=== PATIENT | female | born 1945 | race Caucasian/White ===

== ENCOUNTER 2020-01-02 12:29 | Outpatient (REF) | payer MEDICARE, SELFPAY ==
--- NOTE | 2020-01-02 13:00 | CT_ITS ---
EXAMINATION: CT CHEST SCREENING CLINICAL INFORMATION: Smoker, screening. COMPARISON: None. TECHNIQUE: Multidetector volumetric CT imaging of the chest is performed without contrast using low dose technique. Additional 2D coronal and sagittal reformatted images and axial 3D maximum intensity projection (MIP) images are generated on the CT workstation. This CT examination was performed using dose optimization techniques as appropriate, variously including the following: *Automated exposure control *Adjustment of mA and/or kV according to patient size (this includes techniques or standardized protocols for targeted exams where dose is matched to indication/reason for exam; i.e. extremities or head) *Use of iterative reconstruction technique DLP: 49 mGy-cm FINDINGS: LUNGS: The lungs are well-expanded with ill-defined irregular patchy opacity lingula measuring 1.3 x 0.7 cm axial image 31/6. There is 3 mm nodule left lower lobe lateral basal segment image 213/6. No additional nodules seen. MEDIASTINUM: The thyroid lobes are symmetrical and normal. The central trachea and the bronchi are widely patent. No abnormal size mediastinal lymph nodes seen. There are coronary artery calcifications. The heart size and the great vessels are normal caliber. No pericardial effusion seen. PLEURA: There is no pleural effusion. No pleural mass or thickening. AXILLA: No lymphadenopathy. UPPER ABDOMEN: Visualized liver, spleen, pancreas and bilateral adrenal glands are unremarkable. OSSEOUS STRUCTURES: No lytic or sclerotic process seen. IMPRESSION: Ill-defined ureteral patchy opacity lingula measuring 1.3 cm. 3 mm nodule left lower lobe lateral basal segment ASSESSMENT: Lung-RADS category 4A: Suspicious RECOMMENDATION: Low dose CT in 3 months
== END 2020-01-02 12:30 | disposition home or self-care (01) ==
LOC: HO.CT 12:29
PROVIDERS: PCP Internal Medicine; Visit Provider Surgery
DX: Z12.2 Encounter for screening for malignant neoplasm of respiratory organs (principal); F17.210 Nicotine dependence, cigarettes, uncomplicated
CPT/HCPCS: 71250

== ENCOUNTER 2020-02-10 12:16 | Outpatient (REF) | payer MEDICARE, SELFPAY ==
--- NOTE | 2020-02-10 | PFT_ITS ---
INDICATION: Dyspnea. SPIROMETRY: The FEV1 to FVC is 97% with an FEV1 of 1.72 L, which is 36% predicted and an FVC of 1.76 L, which is 66% predicted. No significant response to bronchodilators noted. LUNG VOLUMES: Total lung capacity 92% predicted. DIFFUSION CAPACITY: DLCO 62% predicted. COMPARISONS: Pulmonary function studies from 02/19/2019. INTERPRETATION: No obstructive ventilatory defect. No significant response to bronchodilators noted. Normal maximum voluntary ventilation. Lung volumes are within normal limits, and there is a mild to moderate diffusion impairment. When compared to PFTs from 2019, there is a significant decrease in the FVC. No significant change in the FEV1. No significant change in the diffusion capacity. Clinical correlation warranted. MD SUE Cook/MODL / [id number]
== END 2020-02-10 12:17 | disposition home or self-care (01) ==
LOC: HO.RESP 12:16
PROVIDERS: Visit Provider Surgery
DX: R91.1 Solitary pulmonary nodule (principal)
CPT/HCPCS: 94060; 94727; 94729

== ENCOUNTER 2020-03-09 13:47 | Outpatient (REF) | payer MEDICARE, SELFPAY | END 2020-03-09 13:48 | disposition home or self-care (01) | LOC: HO.LAB 13:47 | PROVIDERS: PCP Internal Medicine; Visit Provider Internal Medicine | DX: Z20.828 Contact with and (suspected) exposure to other viral communicable diseases (principal) | CPT/HCPCS: C9803; U0003 ==

== ENCOUNTER 2020-03-14 08:49 | Inpatient (IN) | payer MEDICARE, SELFPAY ==
[2020-03-14] VITALS (7 sets, daily range): BP systolic 111–149; BP diastolic 54–68; PULSE 58–72; RESP 14–24; TEMP 36.6; O2SAT 92–96; BMI 31.6
--- NOTE | 2020-03-14 09:12 | ECG_ITS ---
Test Reason : WEAKNESS Blood Pressure : / mmHG Vent. Rate : 061 BPM Atrial Rate : 061 BPM P-R Int : 174 ms QRS Dur : 078 ms QT Int : 448 ms P-R-T Axes : 064 082 061 degrees QTc Int : 450 ms Normal sinus rhythm Nonspecific T wave abnormality Abnormal ECG When compared with ECG of 21-APR-2019 13:24, Nonspecific T wave abnormality now evident in Anterior leads Referred By: Pa Davies Electronically Signed By:JUAN F WOOD
--- NOTE | 2020-03-14 09:12 | CT_ITS ---
EXAMINATION: CT HEAD WITHOUT CONTRAST (STROKE PROTOCOL) CLINICAL INFORMATION: Stroke protocol. Weakness. COMPARISON: CT brain 03/19/2019 TECHNIQUE: Contiguous axial imaging was performed from the skull base to vertex without intravenous administration of contrast. This CT examination was performed using dose optimization techniques as appropriate, variously including the following: *Automated exposure control *Adjustment of mA and/or kV according to patient size (this includes techniques or standardized protocols for targeted exams where dose is matched to indication/reason for exam; i.e. extremities or head) *Use of iterative reconstruction technique DLP: 585 mGy-cm FINDINGS: There is no intracranial hemorrhage, hematoma, or extra-axial fluid collection. The ventricles are normal in size. There is no hydrocephalus, edema, or mass effect. The mcdonnell-white matter differentiation appears symmetric. There is no acute infarct or mass lesion. The round hypodensity seen in the right anterior temporal lobe on axial image 8/3. Similar density was seen on the previous CT brain 03/19/2019. The calvarium appears intact. There is no pneumocephalus or orbital emphysema. The visualized sinuses and middle ears and mastoid air cells show no significant mucosal thickening. There are no air-fluid levels. CT/CT head for stroke IMPRESSION: No acute intracranial process seen. Small hypodensity in the right anterior temporal lobe unchanged to previous study. Question ectatic right MCA trifurcation or a small aneurysm. Correlate with MRA and MRI brain as an outpatient. This critical result was discussed with ERIK La in ER at 9:35 a.m. on 03/14/2020. It was ascertained that the content and urgency of the report was understood at the time of direct communication.
--- NOTE | 2020-03-14 09:12 | XR_ITS ---
EXAMINATION: XR CHEST CLINICAL INFORMATION: Stroke symptoms. COMPARISON: Chest x-ray 12/21/[address] chest 4 lung screening 01/02/2020 TECHNIQUE: Frontal view of the chest was obtained. FINDINGS: The lungs are well-expanded with patchy ill-defined density left midlung corresponding to this CT chest finding. Otherwise rest of lungs are clear. No pleural effusion seen. Heart size and pulmonary vascularity is normal. No gross bony abnormality seen. XR/XR chest 1V IMPRESSION: Patchy ill-defined density left midlung unchanged to CT chest 01/02/2020 No acute cardiopulmonary process seen
--- NOTE | 2020-03-14 09:15 | ED_ITS ---
HPI - Neuro Symptoms/Deficit General Chief Complaint: Stroke Stated Complaint: dizzy,slurred speech Time Seen by Provider: 03/14/20 09:12 Source: patient and family () Mode of arrival: ambulatory Limitations: no limitations History of Present Illness HPI Narrative: A 75-year-old female presented with her for slurred speech, feeling dizzy, slight left upper extremity is weakness, patient and noticed that symptoms started since last night started at 23:00, patient went to bed did not seek medical attention thought that this symptoms will go away, in the morning noticed that she still have what described as expressive aphasia and patient was feeling dizzy. When the decided to take her to the hospital. Related Data Home Medications Medication Instructions Recorded Confirmed gabapentin 1 cap PO QID 03/14/20 03/14/20 metoprolol ta-hydrochlorothiaz 1 tab PO BID 03/14/20 03/14/20 ropinirole 1 tab PO BEDTIME 03/14/20 03/14/20 Previous Rx's Medication Instructions Recorded tiotropium bromide 18 mcg capsule 1 cap INHALATION DAILY #30 cap 02/25/20 with inhalation device Allergies Allergy/AdvReac Type Severity Reaction Status Date / Time ibuprofen [From MOTRIN] Allergy Unknown GI UPSET Unverified 12/18/19 15:46 Review of Systems Review of Systems: All other systems are reviewed and are negative Constitutional: Reports as per HPI and Reports no additional constitutional complaints Eyes: Reports as per HPI and Reports no additional eye complaints Reports system reviewed and no additional complaints, except as documented Cardiovascular: Reports as per HPI and Reports no additional cardiovascular complaints Respiratory: Reports as per HPI and Reports no additional respiratory complaints Gastrointestinal: Reports as per HPI and Reports no additional gastrointestinal complaints Genitourinary: Reports no additional female genitourinary complaints Musculoskeletal: Reports no additional musculoskeletal complaints Skin/Breast: Reports system reviewed and no additional complaints, except as docu Psychiatric: Reports no additional psychiatric complaints Endocrine: Reports no additional endocrine complaints Hematologic/Lymphatic: Reports no additional hematologic/lymphatic complaints Allergic/Immunologic: Reports no additional allergic/immunologic complaints Reports system reviewed and no additional complaints, except as documented and Reports Abnormal speech present [facility] Past Medical History Medical History Arthritis Hypertension Restless leg syndrome Surgical History History of partial hysterectomy Social History Social History Alcohol intake: former Smoking Status: Current every day smoker Smoked in Last 30 Days: No Use of substances other than those prescribed or required for medical reasons: No Advance Directives: No Advance Directives Information Provided: No Physical Exam Vital Signs: Vital Signs: Last Vital Signs Temp 97.9 F 03/14/20 08:59 Pulse 59 03/14/20 11:00 Resp 19 03/14/20 11:00 BP 149/62 H 03/14/20 11:00 Pulse Ox 92 03/14/20 11:00 Body Mass Index 31.6 Vital signs have been reviewed as normal and appeared to be correct. Blood pressure in the high range. Heart rate normal. Respiration rate normal. Temperature normal. Oxygen saturation normal. Appearance: Alert. Oriented X3. No acute distress. Head: Normal external exam. Normocephalic. Atraumatic. No Clifton signs noted. No raccoon eyes noted Eyes: PERRLA. EOMI. Conjunctiva and sclera normal. Eyelids normal. ENT: EAC normal. TM's Normal. Pharynx normal. Uvula midline. Moist mucous membr anes. No trismus noted. No drooling noted. No muffled voice noted. Neck: Normal inspection. Neck supple. FROM. No adenopathy. Thyroid Normal. No meningeal signs. No neck mass noted. CVS: Normal heart rate and rhythm. Heart sound normal. No murmurs noted. Pulses normal throughout. Respiratory: No respiratory distress. Painless inspiration. Breath sounds normal. No wheezes/rales/rhonchi noted. Chest nontender. No accessory muscle usage noted or decreased air movement noted. Abdomen: Soft and nontender. Bowel sounds normal in all 4 quadrants. No distention noted. No organomegaly noted. No visible injury noted. Back: No CVA tenderness. Full range of motion noted. Skin: Skin warm and dry. Normal skin color. Normal skin turgor. No rashes/lesions/lacerations noted. Extremities: No lower extremity edema. Extremities exhibit normal range of motion. Extremities nontender. Neuro: Oriented X 3. Mild motor deficit in the left upper extremities. No sensory deficit. Reflexes normal. Mild and intermittent expressive aphasia. MDM - Neuro Symptoms/Deficit [facility] Narrative Medical decision making narrative: Assessment and plan. 75-year-old female with history of hypertension presented with at least 10 hours of intermittent expressive aphasia with slight left upper extremities drift NIH score is 2. Patient is not candidate for tPA therapy. CTA of the head and neck showed stable cerebral aneurysms (multiple) with no rupture (patient has no headache). Case discussed with Dr. Kapadia over the phone recommended to give patient aspirin and admit for further evaluation. Lab Data Result diagrams: 03/14/20 09:41 03/14/20 09:41 Labs: Lab Results 03/14/20 03/14/20 03/14/20 Range/Units 09:31 09:41 09:41 WBC 6.8 (4.8-10.8) X10*3/uL RBC 5.00 (4.20-5.50) X10*6/uL Hgb 15.0 (12.0-16.0) g/dl Hct 45.5 (37-47) % MCV 91.0 (80-98) fL MCH 30.0 (27.0-33.0) pg MCHC 33.0 (31.0-35.0) g/dl RDW 14.2 (11.0-16.0) % Plt Count 361 (160-400) X10*3/uL MPV 9.8 (9.4-12.3) fL Immature Gran % (Auto) 0.3 (0.0-0.4) % Neut % (Auto) 52.9 (45-73) % Lymph % (Auto) 36.7 (20-40) % Drew % (Auto) 7.5 (2-11) % Eos % (Auto) 1.3 (0-4) % Baso % (Auto) 1.3 (0-2) % Lymph # (Auto) 2.5 (1.2-4.9) X10*3/uL Drew # (Auto) 0.5 (0.1-1.2) X10*3/uL Eos # (Auto) 0.1 (0.0-0.4) X10*3/uL Baso # (Auto) 0.1 (0.0-0.2) X10*3/uL Abs Immat Gran (auto) 0.02 (0.00-0.03) X10*3/uL Absolute Neuts (auto) 3.6 (2.0-8.3) X10*3/uL Absolute Nucleated RBC 0.000 (0.0-0.012) X10*3/uL Nucleated RBC % (auto) 0.0 (0.0-0.2) /100WBC PT 11.2 (10.8-13.0) SEC INR 0.9 (0.9-1.1) Sodium (135-145) mmol/L Potassium (3.3-5.1) mmol/l Chloride (96-108) mmol/L Carbon Dioxide (22-29) mmol/L Anion Gap (12-20) BUN (9-16) mg/dL Creatinine (0.5-1.4) mg/dL Estim Creat Clear Calc Estimated GFR POC Glucose 113 (60-115) mg/dL Random Glucose (60-115) mg/dL Calcium (8.4-10.2) mg/dL Troponin I High Sens (<3.5-17.0) ng/L Hold Red Top 03/14/20 03/14/20 03/14/20 Range/Units 09:41 09:41 09:41 WBC (4.8-10.8) X10*3/uL RBC (4.20-5.50) X10*6/uL Hgb (12.0-16.0) g/dl Hct (37-47) % MCV (80-98) fL MCH (27.0-33.0) pg MCHC (31.0-35.0) g/dl RDW (11.0-16.0) % Plt Count (160-400) X10*3/uL MPV (9.4-12.3) fL Immature Gran % (Auto) (0.0-0.4) % Neut % (Auto) (45-73) % Lymph % (Auto) (20-40) % Drew % (Auto) (2-11) % Eos % (Auto) (0-4) % Baso % (Auto) (0-2) % Lymph # (Auto) (1.2-4.9) X10*3/uL Drew # (Auto) (0.1-1.2) X10*3/uL Eos # (Auto) (0.0-0.4) X10*3/uL Baso # (Auto) (0.0-0.2) X10*3/uL Abs Immat Gran (auto) (0.00-0.03) X10*3/uL Absolute Neuts (auto) (2.0-8.3) X10*3/uL Absolute Nucleated RBC (0.0-0.012) X10*3/uL Nucleated RBC % (auto) (0.0-0.2) /100WBC PT (10.8-13.0) SEC INR (0.9-1.1) Sodium 140 (135-145) mmol/L Potassium 4.2 (3.3-5.1) mmol/l Chloride 100 (96-108) mmol/L Carbon Dioxide 29 (22-29) mmol/L Anion Gap 15 (12-20) BUN 13 (9-16) mg/dL Creatinine 0.88 (0.5-1.4) mg/dL Estim Creat Clear Calc 55.2 Estimated GFR > 60 POC Glucose (60-115) mg/dL Random Glucose 112 (60-115) mg/dL Calcium 9.8 (8.4-10.2) mg/dL Troponin I High Sens 3.8 (<3.5-17.0) ng/L Hold Red Top See Note Imaging Data CT scan - head: Radiologist's impression: No acute intracranial process seen. Small hypodensity in the right anterior temporal lobe unchanged to previous study. Question ectatic right MCA trifurcation or a small aneurysm. Correlate with MRA and MRI brain as an outpatient. This critical result was discussed with ERIK La in ER at 9:35 a.m. on 03/14/2020. It was ascertained that the content and urgency of the report was understood at the time of direct communication. CT angio head and neck: Radiologist's impression: 1. No acute infarcts or intracranial hemorrhage identified. 2. No acute large vessel intracranial occlusions. 3. Multiple intracranial aneurysms. Three (3) aneurysms are identified as detailed above. 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 No evidence of acute subarachnoid hemorrhage. 4. Nonocclusive bilateral carotid bulb atherosclerotic plaque. 5. Indeterminate 1.2 cm nodule within the left lobe of the thyroid which may be further evaluated with nonemergent thyroid ultrasonography. 6. Multilevel chronic spondylosis of the cervical spine. This critical result with reference to the absence of acute intracranial findings and multiple intracranial aneurysms was discussed with Pa Davies MD by telephone at 03/14/2020 11:58 AM and it was ascertained that the content and urgency of the report was understood at the time of direct communication. ECG Data Interpretation: Normal sinus rhythm at 61 beats per minutes, normal axis, normal intervals, no specific ST-T changes. NIH Stroke Scale Internal: Initial- Upon Arrival Level of Consciousness: Alert Level of Consciousness Questions: Answers both questions correctly Level of Consciousness Commands: Performs both tasks correctly Best Gaze: Normal Visual: No visual loss Facial Palsy: Normal Motor Arm (Right): No drift Motor Arm (Left): Drift Motor Leg (Right): No drift Motor Leg (Left): No drift Limb Ataxia: Absent Sensory: Normal Best Language: Mild to moderate aphasia Dysarthia: Normal Extinction and Inattention: No abnormality Score: 2 Discharge Plan Discharge Clinical Impression: Transient cerebral ischemia, Cerebrovascular accident Patient Disposition: Admitted As Inpatient Prescriptions: No Action tiotropium bromide [Spiriva with HandiHaler] 18 mcg capsule, w/inhalation device 1 cap inhalation DAILY Qty: 30 RF: 3 metoprolol ta-hydrochlorothiaz 50-25 mg tablet 1 tab PO BID RF: 0 ropinirole 2 mg tablet 1 tab PO BEDTIME RF: 0 gabapentin 100 mg capsule 1 cap PO QID RF: 0
[2020-03-14 09:34] LABS: Glucose, Whole Blood 113 mg/dL (60-115)
[2020-03-14 09:45] LABS: MANUAL DIFF FLAG NO
[2020-03-14 09:56] LABS: Basophils Absolute Auto 0.1 X10*3/uL (0.0-0.2); Basophils Percent Auto 1.3 % (0-2); Eosinophils Absolute Auto 0.1 X10*3/uL (0.0-0.4); Eosinophils Percent Auto 1.3 % (0-4); Hematocrit 45.5 % (37-47); Imm Gran Abs Auto 0.02 X10*3/uL (0.00-0.03); Imm Gran Pct Auto 0.3 % (0.0-0.4); Lymphocytes Absolute Auto 2.5 X10*3/uL (1.2-4.9); Lymphocytes Percent Auto 36.7 % (20-40); Mean Platelet Volume 9.8 fL (9.4-12.3); Monocytes Absolute Auto 0.5 X10*3/uL (0.1-1.2); Monocytes Percent Auto 7.5 % (2-11); Neutrophils Absolute Auto 3.6 X10*3/uL (2.0-8.3); Neutrophils Percent Auto 52.9 % (45-73); Platelet Count 361 X10*3/uL (160-400); Red Cell Distribution Width 14.2 % (11.0-16.0); White Blood Count 6.8 X10*3/uL (4.8-10.8)
[2020-03-14 10:01] LABS: INTERNATIONAL NORM RATIO 0.9 (0.9-1.1); Prothrombin Time 11.2 SEC (10.8-13.0)
[2020-03-14 10:04] LABS: Stroke Lab Use COMPLETE
[2020-03-14 10:06] LABS: Anion Gap 15 (12-20); Blood Urea Nitrogen 13 mg/dL (9-16); Calcium 9.8 mg/dL (8.4-10.2); Carbon Dioxide 29 mmol/L (22-29); Chloride 100 mmol/L (96-108); Creatinine Clr Calc Pharmacy 55.2; Estimated Glomerular Filt Rate > 60; Glucose Random 112 mg/dL (60-115); Potassium 4.2 mmol/l (3.3-5.1); Sodium 140 mmol/L (135-145)
[2020-03-14 10:13] LABS: Troponin-I High Sensitivity 3.8 ng/L (<3.5-17.0)
--- NOTE | 2020-03-14 10:24 | CT_ITS ---
EXAMINATION: CTA NECK WITH CONTRAST (STROKE) CTA BRAIN WITH CONTRAST (STROKE) CLINICAL INFORMATION: Weakness. Stroke. COMPARISON: CT head 03/13/2020. TECHNIQUE: CTA of the head and neck was performed in the axial plane from the mediastinum to the skull vertex using 70 mL Omnipaque 350 intravenous contrast. Additional reformatted multiplanar images including maximum intensity projection MIP images are generated on the CT workstation. This CT examination was performed using dose optimization techniques as appropriate, variously including the following: *Automated exposure control *Adjustment of mA and/or kV according to patient size (this includes techniques or standardized protocols for targeted exams where dose is matched to indication/reason for exam; i.e. extremities or head) *Use of iterative reconstruction technique DLP: 1449 mGy-cm FINDINGS: The degree of stenosis determined by criteria similar to NASCET. Delayed IV contrast-enhanced CT the head: The ventricles and sulci are normal in size and configuration. No intracranial hemorrhage or tumors are noted. No focal parenchymal lesions of the brain are visualized. Normal intraluminal opacification is noted in the major intracranial dural sinuses. Focal segmental calcific atherosclerosis is noted in the proximal intradural segment of the left vertebral artery and moderate diffuse segmental nonocclusive calcific atherosclerosis is present in the cavernous portions of the internal carotid arteries. A left ocular lens extraction is noted. CT angiography neck: Nonocclusive calcific and noncalcific atherosclerotic plaque is noted in the transverse aorta in association with the origins of the great vessels. Conventional branching anatomy of the great vessels is identified. Nonocclusive eccentric calcific and noncalcific atherosclerotic plaque is present in left carotid bulb. Minimal punctate calcific atherosclerotic plaque is noted in the right carotid bulb. The left vertebral artery is dominant. CT angiography head: Nonocclusive calcific atherosclerosis is noted in the proximal intradural segment of the left vertebral artery. Bilateral posterior communicating arteries are visualized. Nonocclusive segmental calcific atherosclerosis is noted in the cavernous portions of the internal carotid arteries. A 2 mm saccular aneurysm directed superiorly is present along the right internal carotid artery at the expected origin of the ophthalmic artery. A saccular aneurysm measuring 4 mm diameter and 5.5 mm in longitudinal extent is present at the bifurcation of the right middle cerebral artery extending superiorly. A 1.5 mm diameter saccular aneurysm measuring 2 mm in longitudinal extent is present at the origin of the right anterior cerebral artery and anterior communicating artery directed superiorly. No large vessel intracranial occlusions are noted. A single 1.2 cm diameter rounded intermediate density (108 Hounsfield unit) focus is present in the left lobe of the thyroid with density possibly artificially elevated secondary to scattering artifact. Artifact on the comparison exam of 03/19/2019 precludes determination of whether or not the current thyroid finding is new or chronic. Multilevel intervertebral disc space narrowing and endplate osteophytosis is present in the cervical spine with findings most pronounced at C5-C6 and C6-C7 where at least moderate bilateral foraminal stenoses are present. CT/CT angio head neck stroke IMPRESSION: 1. No acute infarcts or intracranial hemorrhage identified. 2. No acute large vessel intracranial occlusions. 3. Multiple intracranial aneurysms. Three (3) aneurysms are identified as detailed above. 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 No evidence of acute subarachnoid hemorrhage. 4. Nonocclusive bilateral carotid bulb atherosclerotic plaque. 5. Indeterminate 1.2 cm nodule within the left lobe of the thyroid which may be further evaluated with nonemergent thyroid ultrasonography. 6. Multilevel chronic spondylosis of the cervical spine. This critical result with reference to the absence of acute intracranial findings and multiple intracranial aneurysms was discussed with Pa Davies MD by telephone at 03/14/2020 11:58 AM and it was ascertained that the content and urgency of the report was understood at the time of direct communication.
--- NOTE | 2020-03-14 10:43 | PC.NURSE ---
Diagnostics reviewed with pt by Dr Cope. Plan is to perform CTA, then submit for an EBR. At pt's request , shantel, called and updated with plan.
[2020-03-14] MEDS: iohexoL 350 MG/ML 100 ML INFUS..BTL IV (11:42)
--- NOTE | 2020-03-14 11:53 | PC.NURSE ---
Pt transported to and from CT.
[2020-03-14] MEDS: Aspirin Enteric Coated 81 MG TABLET.DR PO (13:20)
--- NOTE | 2020-03-14 13:20 | PM.EVENT ---
Event Note Date of Service: 03/14/20 Event Note: pt seen and examined at bedside with Minnie Singh. I agree with her note, assessment and plan. This is a 75 yo f , with hx of HTN, tobacco abuse who presents to the hospital with slurred speech that her noticed before she went to bed last night. pt reports that she also woke up with some slurred speech this am and has difficulty with finding some words. She denies any other symptoms and reports that her right leg sometimes gives her a hard time but that is chronic and has no weakness in her extremities. Head/neck CTA showed aneurysm with no evidence of large vessel occlusion Physical exam revealed lagging finger to nose motion, but pt reported not having her glasses which may have affected this maneuver will obtain MRI of brain as well as echo Neurology to evaluate pt in AM for full note, please see H&P
--- NOTE | 2020-03-14 13:38 | PM.IMHP ---
History of Present Illness Date of Service: 03/14/20 <ERIK Curran - Last Filed: 03/14/20 13:59> Chief Complaint: Abnormal speech <ERIK Curran - Last Filed: 03/14/20 13:59> This is a 75-year-old female with history of restless leg syndrome, hypertension, dyslipidemia who presents to the emergency department with abnormal speech. She said last evening around 23:00 she began talking to her and he told her that her speech was abnormal. She described it as slurred. This morning her symptoms persisted so he urged her to come to the emergency department for evaluation. She denied any associated vision changes, weakness, difficulty swallowing. Her speech was clear but she seemed to have some expressive aphasia. No other deficits were noted. Brain CT was unremarkable. Head and neck CTA showed 3 small brain aneurysms but no large vessel occlusion or infarct. Since her symptoms had been present since the previous day she was not a candidate for tPA. The decision was made to admit her to for further management <ERIK Curran - Last Filed: 03/14/20 13:59> Review of Systems Review of Systems: Yes all other systems are reviewed and are negative <ERIK Curran - Last Filed: 03/14/20 13:59> Constitutional: Constitutional: Denies chills and Denies fever(s) <ERIK Curran - Last Filed: 03/14/20 13:59> Cardiovascular: Cardiovascular: Denies chest pain <ERIK Curran Last Filed: 03/14/20 13:59> Respiratory: Respiratory: Denies cough <ERIK Curran - Last Filed: 03/14/20 13:59> Gastrointestinal: Gastrointestinal: Denies abdominal pain <ERIK Curran - Last Filed: 03/14/20 13:59> [facility] Medical History: Medical History (Updated 03/15/20 @ 14:40 by Jorge Kapadia MD) Arthritis HLD (hyperlipidemia) Hypertension Peripheral neuropathy Restless leg syndrome <ERIK Curran Last Filed: 03/14/20 13:59> Functional capacity: independent ambulation <ERIK Curran Last Filed: 03/14/20 13:59> Pertinent family history: Her father had a history of non-Hodgkin's lymphoma <ERIK Curran - Last Filed: 03/14/20 13:59> Surgical History: Surgical History History of partial hysterectomy <ERIK Curran - Last Filed: 03/14/20 13:59> Social History: Social History (Updated 03/14/20 @ 13:48 by ERIK Curran) Household Members: Spouse and Children Housing: House Do you presently have visiting nurse or other home services: No Alcohol intake: former Smoking Status: Current every day smoker Tobacco Type: Cigarette Cigarettes Per Day: 10 Smoked in Last 30 Days: No Patient Interested in Nicotine Replacement: Yes Use of substances other than those prescribed or required for medical reasons: No Currently Displaying Signs/Symptoms of Drug Intoxication Withdrawal: No Have you been hit, kicked, punched, or otherwise hurt by someone within the past year? If so, by whom?: No Do you feel safe in your current relationship?: Yes Is there a partner from a previous relationship who is making you feel unsafe now?: No Are you made to feel afraid or neglected: No Advance Directives: No Advance Directives Information Provided: No Do you have thoughts of harming others: None Do you have a plan to hurt others: No Plan Recently lost weight without trying: No service: No <ERIK Curran - Last Filed: 03/14/20 13:59> Meds Allergies/Adverse reactions: Allergies Allergy/AdvReac Type Severity Reaction Status Date / Time ibuprofen [From MOTRIN] Allergy Mild GI UPSET Verified 03/15/20 11:53 <ERIK Curran - Last Filed: 03/14/20 13:59> Home medications: Home Medications Medication Instructions Recorded Confirmed Type gabapentin 1 cap PO QID 03/14/20 03/14/20 History metoprolol ta-hydrochlorothiaz 1 tab PO BID 03/14/20 03/14/20 History ropinirole 1 tab PO BEDTIME 03/14/20 03/14/20 History <ERIK Curran - Last Filed: 03/14/20 13:59> Physical Exam Vital Signs and Narrative: Vital Signs: Last Vital Signs Temp 97.9 F 03/14/20 08:59 Pulse 63 03/14/20 13:01 Resp 14 03/14/20 13:01 BP 111/55 L 03/14/20 13:01 Pulse Ox 94 03/14/20 13:01 Body Mass Index 31.6 <ERIK Curran - Last Filed: 03/14/20 13:59> Const: Nutritional Appearance: well nourished <ERIK Curran - Last Filed: 03/14/20 13:59> Orientation/consciousness: patient oriented x3 <ERIK Curran - Last Filed: 03/14/20 13:59> HENMT: Head: Yes normocephalic and Yes atraumatic <ERIK Curran - Last Filed: 03/14/20 13:59> Eyes: Sclerae: sclerae normal <ERIK Curran - Last Filed: 03/14/20 13:59> Pupils: Equal, round and reactive pupils present <ERIK Curran - Last Filed: 03/14/20 13:59> Chest: Chest palpation & inspection: normal inspection of the chest <ERIK Curran - Last Filed: 03/14/20 13:59> Resp: Effort & Inspection: normal respiratory effort and no respiratory distress <ERIK Curran - Last Filed: 03/14/20 13:59> Auscultation: clear to auscultation bilaterally <ERIK Curran - Last Filed: 03/14/20 13:59> Cardio: Rate: regular rate <ERIK Curran - Last Filed: 03/14/20 13:59> Rhythm: regular rhythm <ERIK Curran - Last Filed: 03/14/20 13:59> GI: Palpation (GI): Soft to palpation and nontender <ERIK Curran - Last Filed: 03/14/20 13:59> Skin: General skin exam: no rashes or lesions noted <ERIK Curran - Last Filed: 03/14/20 13:59> Neuro: General: patient oriented x3 <ERIK Curran - Last Filed: 03/14/20 13:59> Cranial nerves: Yes CN's II-XII intact bilaterally, Yes Equal, round and reactive pupils present, Yes Bilaterally intact EOM present and Yes Midline tongue present <ERIK Curran - Last Filed: 03/14/20 13:59> Speech: Expressive aphasia present <ERIK Curran - Last Filed: 03/14/20 13:59> Motor exam (neuro): 5/5 motor strength present throughout and Pronator motor function not present <ERIK Curran - Last Filed: 03/14/20 13:59> Coordination: No [id number] test normal (dysmetria) <ERIK Curran - Last Filed: 03/14/20 13:59> Extrem: General: Yes normal to inspection <ERIK Curran - Last Filed: 03/14/20 13:59> Results Labs CBC and Chem 7: : 03/15/20 07:37 03/15/20 07:37 <ERIK Curran - Last Filed: 03/14/20 13:59> Labs: Laboratory Results - last 24 hr 03/14/20 03/14/20 03/14/20 09:31 09:41 09:41 MCV 91.0 MCH 30.0 MCHC 33.0 RDW 14.2 Plt Count 361 MPV 9.8 Immature Gran % (Auto) 0.3 Neut % (Auto) 52.9 Lymph % (Auto) 36.7 [place] % (Auto) 7.5 Eos % (Auto) 1.3 Baso % (Auto) 1.3 Lymph # (Auto) 2.5 [place] # (Auto) 0.5 Eos # (Auto) 0.1 Baso # (Auto) 0.1 Abs Immat Gran (auto) 0.02 Absolute Neuts (auto) 3.6 Absolute Nucleated RBC 0.000 Nucleated RBC % (auto) 0.0 PT 11.2 INR 0.9 Anion Gap Estim Creat Clear Calc Estimated GFR POC Glucose 113 Random Glucose Calcium Troponin I High Sens Hold Red Top 03/14/20 03/14/20 03/14/20 09:41 09:41 09:41 MCV MCH MCHC RDW Plt Count MPV Immature Gran % (Auto) Neut % (Auto) Lymph % (Auto) [place] % (Auto) Eos % (Auto) Baso % (Auto) Lymph # (Auto) [place] # (Auto) Eos # (Auto) Baso # (Auto) Abs Immat Gran (auto) Absolute Neuts (auto) Absolute Nucleated RBC Nucleated RBC % (auto) PT INR Anion Gap 15 Estim Creat Clear Calc 55.2 Estimated GFR > 60 POC Glucose Random Glucose 112 Calcium 9.8 Troponin I High Sens 3.8 Hold Red Top See Note <ERIK Curran - Last Filed: 03/14/20 13:59> Imaging Radiologist's Impressions: Impressions Chest X-Ray 03/14/20 09:12 IMPRESSION: Patchy ill-defined density left midlung unchanged to CT chest 01/02/2020 No acute cardiopulmonary process seen Head CT 03/14/20 09:12 IMPRESSION: No acute intracranial process seen. Small hypodensity in the right anterior temporal lobe unchanged to previous study. Question ectatic right MCA trifurcation or a small aneurysm. Correlate with MRA and MRI brain as an outpatient. This critical result was discussed with ERIK La in ER at 9:35 a.m. on 03/14/2020. It was ascertained that the content and urgency of the report was understood at the time of direct communication. Head/Neck CTA 03/14/20 10:24 IMPRESSION: 1. No acute infarcts or intracranial hemorrhage identified. 2. No acute large vessel intracranial occlusions. 3. Multiple intracranial aneurysms. Three (3) aneurysms are identified as detailed above. 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 No evidence of acute subarachnoid hemorrhage. 4. Nonocclusive bilateral carotid bulb atherosclerotic plaque. 5. Indeterminate 1.2 cm nodule within the left lobe of the thyroid which may be further evaluated with nonemergent thyroid ultrasonography. 6. Multilevel chronic spondylosis of the cervical spine. This critical result with reference to the absence of acute intracranial findings and multiple intracranial aneurysms was discussed with Pa Davies MD by telephone at 03/14/2020 11:58 AM and it was ascertained that the content and urgency of the report was understood at the time of direct communication. <ERIK Curran - Last Filed: 03/14/20 13:59> Assessment and Plan (1) Expressive aphasia: Status: Acute <ERIK Curran - Last Filed: 03/14/20 13:59> This is a 75-year-old female history of RLS, hypertension, dyslipidemia (intolerant to simvastatin in the past), peripheral neuropathy, tobacco dependence who presents with expressive aphasia which began at 23:00 last evening. Expressive aphasia Brain CT negative, CTA head neck shows very small aneurysms but no large vessel occlusion or infarction Mild expressive aphasia. Out of the window for tPA Continue aspirin Intolerant to statins in the past Brain MRI Echocardiogram PT OT evaluation Neurology consult Hold hypertensive medications to allow for permissive hypertension in the setting of possible stroke Aneurysms seen on CT Outpatient follow-up Incidental thyroid nodule Outpatient follow-up Tobacco dependence Smoking cessation advised -NRT Restless leg syndrome Continue Requip Peripheral neuropathy Continue gabapentin DVT prophylaxis-Lovenox Code status is DNR/DNI This case was discussed with <ERIK Curran - Last Filed: 03/14/20 13:59>
[2020-03-14 16:32] LABS: COVID-19 Test Negative (Negative)
[2020-03-14] MEDS: Magnesium Hydrox/Alum Hydrox 30 ML ORAL.SUSP PO (20:24)
[2020-03-14] MEDS: Gabapentin 100 MG CAPSULE PO (22:21)
[2020-03-14] MEDS: rOPINIRole HCL 2 MG TABLET PO (22:21)
[2020-03-14] MEDS: Nicotine 14 MG PATCH.TD24 TRANSDERMA (22:22)
[2020-03-14] MEDS: Enoxaparin Sodium 40 MG/0.4 ML SYRINGE SUBCUT (22:22)
[2020-03-14] MEDS: 0.9 % Sodium Chloride Flush 3 ML SYRINGE IVFLUSH (22:23)
[2020-03-15] VITALS (7 sets, daily range): BP systolic 104–142; BP diastolic 54–76; PULSE 72–85; RESP 18–26; TEMP 36.5–36.8; O2SAT 94–99; BMI 31.6
[2020-03-15] MEDS: 0.9 % Sodium Chloride Flush 3 ML SYRINGE IVFLUSH ×3 (00:28→22:36)
--- NOTE | 2020-03-15 07:41 | PC.NURSE ---
attempt to call report, no answer
[2020-03-15 07:42] LABS: MANUAL DIFF FLAG NO
[2020-03-15 07:43] LABS: Basophils Absolute Auto 0.1 X10*3/uL (0.0-0.2); Basophils Percent Auto 1.1 % (0-2); Eosinophils Absolute Auto 0.1 X10*3/uL (0.0-0.4); Eosinophils Percent Auto 1.4 % (0-4); Hematocrit 41.9 % (37-47); Hemoglobin 13.8 g/dl (12.0-16.0); Imm Gran Abs Auto 0.02 X10*3/uL (0.00-0.03); Imm Gran Pct Auto 0.3 % (0.0-0.4); Lymphocytes Absolute Auto 2.5 X10*3/uL (1.2-4.9); Lymphocytes Percent Auto 38.1 % (20-40); Mean Corpuscular HGB Conc 32.9 g/dl (31.0-35.0); Mean Corpuscular Hemoglobin 29.7 pg (27.0-33.0); Mean Corpuscular Volume 90.3 fL (80-98); Mean Platelet Volume 9.6 fL (9.4-12.3); Monocytes Absolute Auto 0.4 X10*3/uL (0.1-1.2); Monocytes Percent Auto 6.5 % (2-11); Neutrophils Absolute Auto 3.4 X10*3/uL (2.0-8.3); Neutrophils Percent Auto 52.6 % (45-73); Platelet Count 311 X10*3/uL (160-400); Red Blood Count 4.64 X10*6/uL (4.20-5.50); Red Cell Distribution Width 14.1 % (11.0-16.0); White Blood Count 6.5 X10*3/uL (4.8-10.8)
--- NOTE | 2020-03-15 08:00 | MR_ITS ---
MRI OF THE BRAIN WITHOUT IV CONTRAST INDICATION: Expressive aphasia. COMPARISON: Head CT 03/14/2020. TECHNIQUE: Multiplanar multisequence MR imaging of the brain was obtained without IV contrast. FINDINGS: There are multiple small acute infarcts throughout the left MCA territory including portions of the left parietal lobe, the left peritrigonal white matter, the left parietotemporal lobe junction, and the left insula. There is no significant mass effect and there is no hemorrhagic transformation. Multiple known aneurysms intracranially are better seen on the recent CTA of the head. There is mild chronic microangiopathy. There is no hydrocephalus, extra-axial surface collection, or herniation. The major flow voids at the skull base are preserved. The midline structures are normal. The cerebellar tonsils are normally positioned. The cerebellum and brainstem are normal. The craniocervical junction is normal. Osseous marrow signal intensity is homogenous. The visualized soft tissues are unremarkable. MR/MR head/brain wo con IMPRESSION: - There are multiple small acute infarcts scattered throughout the left MCA territory. There is no significant mass effect and there is no hemorrhagic transformation. - Multiple known aneurysms intracranially are better seen on the recent CTA of the head.
[2020-03-15 08:09] LABS: Cholesterol 227 mg/dL; HDL Cholesterol 40 mg/dL; LDL Cholesterol Calculated 144 mg/dl; Triglycerides 217 mg/dL
[2020-03-15 08:12] LABS: Anion Gap 13 (12-20); Blood Urea Nitrogen 15 mg/dL (9-16); Calcium 8.5 mg/dL (8.4-10.2); Carbon Dioxide 25 mmol/L (22-29); Chloride 101 mmol/L (96-108); Cholesterol 230 mg/dL; Creatinine Clr Calc Pharmacy 63.9; Estimated Glomerular Filt Rate > 60; Glucose Random 113 mg/dL (60-115); HDL Cholesterol 40 mg/dL; LDL Cholesterol Calculated 148 mg/dl; Potassium 3.4 mmol/l (3.3-5.1); Sodium 136 mmol/L (135-145); Triglycerides 211 mg/dL
[2020-03-15] MEDS: Gabapentin 100 MG CAPSULE PO ×3 (09:23→22:34)
[2020-03-15] MEDS: Aspirin Enteric Coated 81 MG TABLET.DR PO (09:23)
--- NOTE | 2020-03-15 10:13 | PC.NURSE ---
ATTEMPT TO CALL REPORT TO FLOOR
--- NOTE | 2020-03-15 12:53 | HO.PM.IMPN ---
Subjective Subjective Date of Service: 03/15/20 Interval History: Patient seen and examined at bedside. She is feeling better. reports that she still has some mild difficylty finding words but has no other difficulties with no slurred or slow speech. has no abdominal pain, n/v, no weakness, headache or change in vision Physical Exam Vital Signs: Vital Signs: Last Vital Signs Temp 98.1 F 03/15/20 11:57 Pulse 76 03/15/20 11:58 Resp 20 03/15/20 11:57 BP 133/65 03/15/20 11:58 Pulse Ox 94 03/15/20 11:58 Body Mass Index 31.6 Const: General: cooperative and no acute distress Resp: Effort & Inspection: normal respiratory effort and able to speak in complete sentences Auscultation: clear to auscultation bilaterally Cardio: Rate: regular rate Rhythm: regular rhythm GI: Palpation (GI): Soft to palpation Auscultation: normal bowel sounds Skin: General skin exam: no rashes or lesions noted Neuro: Other: General: patient oriented x3 Cranial nerves: Yes CN's II-XII intact bilaterally, Yes Equal, round and reactive pupils present, Yes Bilaterally intact EOM present and Yes Midline tongue present Speech: Expressive aphasia present Motor exam (neuro): 5/5 motor strength present throughout and Pronator motor function not present . Coordination, finger-to nose normal Cognition (Neuro): normal cognition Extrem: General: Yes normal to inspection and Yes no pedal edema Objective Data Current Medications Generic Name Dose Route Start Last Admin Trade Name Freq PRN Reason Stop Dose Admin Acetaminophen 650 mg 03/14/20 21:00 Acetaminophen 325 Mg Tablet PO Q6H PRN Pain, Mild (Pain Scale 1-3) Aspirin 81 mg 03/15/20 09:00 03/15/20 09:23 Aspirin Enteric Coated 81 Mg Tablet.Dr PO 81 mg DAILY DOMINIK Administration Docusate Sodium 100 mg 03/14/20 21:00 Docusate Sodium 100 Mg Capsule PO DAILY PRN Constipation Enoxaparin Sodium 40 mg 03/14/20 21:00 03/14/20 22:22 Enoxaparin Sodium 40 Mg/0.4 Ml Syringe SUBCUT 40 mg Q24H DOMINIK Administration Gabapentin 100 mg 03/14/20 21:29 03/15/20 09:23 Gabapentin 100 Mg Capsule PO 100 mg QID DOMINIK Administration Nicotine 14 mg 03/14/20 21:00 03/15/20 12:12 Nicotine 14 Mg Patch.Td24 TRANSDERMA Not Given DAILY DOMINIK Ondansetron HCl 4 mg 03/14/20 21:00 Ondansetron Hcl 4 Mg/2 Ml Vial IVPUSH Q8H PRN Nausea and Vomiting Ropinirole HCl 2 mg 03/14/20 21:29 03/14/20 22:21 Ropinirole Hcl 2 Mg Tablet PO 2 mg BEDTIME DOMINIK Administration Sodium Chloride 3 ml 03/14/20 21:00 03/15/20 12:12 0.9 % Sodium Chloride Flush 3 Ml Syringe IVFLUSH Not Given QSHIFT DOMINIK Labs CBC & Chem 7: 03/15/20 07:37 03/15/20 07:37 Imaging MRI - head: Radiologist's impression: - There are multiple small acute infarcts scattered throughout the left MCA territory. There is no significant mass effect and there is no hemorrhagic transformation. - Multiple known aneurysms intracranially are better seen on the recent CTA of the head. Assessment and Plan (1) Transient cerebral ischemia: Status: Acute Assessment and Plan: # This is a 75-year-old female history of RLS, hypertension, dyslipidemia (intolerant to simvastatin in the past), peripheral neuropathy, tobacco dependence who presents with expressive aphasia which began at 23:00 last evening. #Expressive aphasia- improved - Brain CT negative, CTA head neck shows very small aneurysms but no large vessel occlusion or infarction - MRI done today showed multiple small acute infarcts throughoutthe left MCA territory, no mass effect - Out of the window for tPA - Continue aspirin - Intolerant to statins in the past - Echocardiogram pending - PT OT evaluation - Neurology consult # Aneurysms seen on CT Outpatient follow-up with neurology # Incidental thyroid nodule - Will check tsh - follow-up # Tobacco dependence - Smoking cessation advised - pt on NRT but still craving cigarretts -Continue NRT # Restless leg syndrome - Continue Requip # Peripheral neuropathy - Continue gabapentin DVT prophylaxis-Lovenox
--- NOTE | 2020-03-15 13:30 | MHC.STROKE ---
Addendum entered by Melvina Field RN 03/16/20 13:57: PLEASE REFER TKO DR DICK DISCHARGE SUMMARY, SPEECH THERAPY IS NOT INDICATED AT THIS TIME. Addendum entered by Melvina Field RN 03/16/20 13:49: I REINFORCED THAT SHE CUTS BACK ON SMOKING ESPECIALLY IF SHE WON'T QUIT. SHE'S DOING TO TRY TO CUT BACK A LITTLE EVERYDAY. SHE IS STILL REFUSING THE STATIN DUE TO MUSCLE ACHES BUT SHE WILL DISCUSS OPTIONS WITH DR ACEVEDO HER PCP. SHE IS GOING TO MAKE AN APPOINTMENT WITH HIM FOR NEXT WEEK. SHE ALSO REVEALED THAT SHE IS LEFT HAND DOMINATE AND THAT COULD HELP HER PROGNOSIS. SPEECH GAVE HER A FOLDER OF EXERCISES AND PROJECTS TO COMPLETE ALSO. Addendum entered by Melvina Field RN 03/16/20 11:25: I MET WITH THE PATIENT TODAY AND DISCUSSED HER DISCHARGE WITH HER AND DR DICK. SHE WILL NEED TO FOLLOW UP WITH DR. RICHARDS [phone] REGARDING HER CTA HEAD RESULTS. SHE WILL ALSO NEED SPEECH THERAPY AN OUTPATIENT. I DID CALL DR ACEVEDO'S OFFICE TODAY AND SPOKE WITH HIS STAFF. I ALSO INFORMED THEM ON HER CURRENT HOSPITALIZATION OF A STROKE AND APHASIA. I ALSO MENTIONED THAT SHE NEEDS TO FOLLOW UP WITH DR RICHARDS AND THAT SHE WILL REQUIRE OUTPATIENT SPEECH THERAPY. Original Note: [id number] I MET WITH THE PATIENT TO PROVIDE STROKE EDUCATION. WE REVIEWED THE SEQUENCE OF EVENTS AND SHE DEVELOPED WORK-FINDING DIFFICULTIES ON 03/13/20 AROUND 2300, THAT WERE IDENTIFIED BY HER . SHE DID NOT SEEK MEDICAL ATTENTION UNTIL THE AM, THEREFORE OUT OF THE WINDOW FOR TPA. SHE HAD A CT HEAD AND CTA HEAD/NECK. NO LVO, THEREFORE EXCLUDED FROM THROMBECTOMY. NIHSS = 2, PASSED SWALLOW PRIOR TO ANY PO. WE DISCUSSED THE MRI FINDINGS AND THE NEUROLOGY CONSULT IS STILL PENDING. WE ALSO DISCUSSED RISK FACTORS, SHE IS ON A NICOTINE PATCH BUT SHE SAID SHE DOES NOT WANT TO STOP SMOKING, SHE DOESN'T DRINK AND SHE EATS WELL THEREFORE SMOKING IS ALL I HAVE . WE DISCUSSED HER LIPID PANEL AND LDL OF 144 TWICE THE RECOMMENDATIONS. SHE REFUSES A STATIN BECAUSE SHE WAS ON SIMVASTATIN AND THE PAST AND HAD TERRIBLE MUSCLE CRAMPING. I DID EXPLAIN THAT THERE ARE DIFFERENT MEDICATIONS SHE COULD TRY OR DISCUSS WITH DR ACEVEDO HER PCP. DURING OUR CONVERSATION SHE WAS STILL HAVING WORD-FINDING DIFFICULTIES AND I AM RECOMMENDING SPEECH THERAPY. I WILL CONTINUE TO FOLLOW. ECHO PENDING ? EMBOLIC STROKES ON MRI.
[2020-03-15 14:14] LABS: Thyroid Stimulating Hormone 2.19 uIU/mL (0.32-4.0)
--- NOTE | 2020-03-15 14:22 | MHC.CM.PN ---
met with pt dc plan is home no sercveis pt will self arrange transport home
--- NOTE | 2020-03-15 14:35 | PM.NEUROCN ---
History of Present Illness Data of Consult Service Date: 03/15/20 Primary Care Provider: Edwar Delgado MD 75 years old woman with underlying history of hypertension who came to hospital with difficulty speaking. This symptoms started a day or 2 before she came to hospital but decided not to come to the hospital when it started. She came when it did not improve. There was no associated history of numbness or paralysis or head pain or headache. In emergency room her difficulty speaking is mostly resolved. Because of resolution of symptoms and delay in presentation she was not considered a candidate for intravenous tPA. CTA did not reveal any vascular lesion and she was not considered a candidate for vascular intervention either. Review of Systems Review of Systems: No recent chest pain shortness of breath palpitation headache fall seizure or exposure to new medicine. [facility] Past Medical History Medical History (Updated 03/15/20 @ 14:40 by Jorge Kapadia MD) Arthritis HLD (hyperlipidemia) Hypertension Peripheral neuropathy Restless leg syndrome Functional capacity: independent ambulation Surgical History Surgical History History of partial hysterectomy Social History Social History (Updated 03/14/20 @ 13:48 by ERIK Curran) Household Members: Spouse and Children Housing: House Do you presently have visiting nurse or other home services: No Alcohol intake: former Smoking Status: Current every day smoker Tobacco Type: Cigarette Cigarettes Per Day: 10 Smoked in Last 30 Days: No Patient Interested in Nicotine Replacement: Yes Use of substances other than those prescribed or required for medical reasons: No Have you been hit, kicked, punched, or otherwise hurt by someone within the past year? If so, by whom?: No Do you feel safe in your current relationship?: Yes Is there a partner from a previous relationship who is making you feel unsafe now?: No Are you made to feel afraid or neglected: No Advance Directives: No Advance Directives Information Provided: No Do you have thoughts of harming others: None Do you have a plan to hurt others: No Plan Recently lost weight without trying: No service: No Meds Allergies Allergy/AdvReac Type Severity Reaction Status Date / Time ibuprofen [From MOTRIN] Allergy Mild GI UPSET Verified 03/15/20 11:53 Home Medications Medication Instructions Recorded Confirmed Type gabapentin 1 cap PO QID 03/14/20 03/14/20 History metoprolol ta-hydrochlorothiaz 1 tab PO BID 03/14/20 03/14/20 History ropinirole 1 tab PO BEDTIME 03/14/20 03/14/20 History Physical Exam Vital Signs: Vital Signs: Last Vital Signs Temp 98.1 F 03/15/20 11:57 Pulse 76 03/15/20 11:58 Resp 20 03/15/20 11:57 BP 133/65 03/15/20 11:58 Pulse Ox 94 03/15/20 11:58 Body Mass Index 31.6 He was alert and awake with normal spontaneity of speech fluency comprehension and affect. She was able to name, repeat, read and comprehend. She had little bit of difficulty repeating complicated statements such as Baby [place] Language which he was able to do it. Face was symmetrical. There was no obvious arm or leg weakness. Visual [place] are full. Deep tendon reflexes were trace to absent reflex with either extensor right auricular occult [place]. She was sensitive in her feet. Results Labs CBC & Chem 7: 03/15/20 07:37 03/15/20 07:37 Labs: Short CBC 03/15/20 Range/Units 07:37 WBC 6.5 (4.8-10.8) X10*3/uL Hgb 13.8 (12.0-16.0) g/dl Hct 41.9 (37-47) % Plt Count 311 (160-400) X10*3/uL BMP 03/15/20 07:37 Sodium 136 Potassium 3.4 Chloride 101 Carbon Dioxide 25 BUN 15 Creatinine 0.76 Calcium 8.5 D Her MRI of brain revealed patchy embolic looking left parietal acute ischemic infarct. There was no particular similar infarction in the past. CTA did not reveal any large vessel stenosis but it also revealed multiple cerebral aneurysm, the largest being 5.5 mm right MCA aneurysm. Assessment and Plan (1) Embolic cerebral infarction: Status: Acute 75 years old woman with multiple small embolic looking patchy left parietal acute ischemic infarction. He had presented with difficulty speaking but that was mostly resolved at this time. There was no large vessel disease to explain this. Likely source was cardiac embolism. Unfortunately she was also diagnosed with multiple cerebral aneurysms that would preclude us to use certain type of treatments. First of all she came late for any acute intervention including tPA or intra-arterial treatment. As far as future stroke prevention is concerned, my recommendation is to just use baby aspirin daily. (2) Multiple aneurysms of cerebral artery: Status: Acute Multiple cerebral aneurysms, the largest being right middle cerebral artery 5.5 mm. None of these aneurysms needed any acute intervention at this time. She should just make a routine follow-up appointment with my office and my plan is to repeat her scan in 6-12 months time. If the size of middle cerebral aneurysm artery aneurysm increases, requiring might be an option.
[2020-03-15] MEDS: rOPINIRole HCL 2 MG TABLET PO (22:34)
[2020-03-16 03:16] VITALS: BP 125/52; PULSE 84; RESP 18; TEMP 36.6; O2SAT 95
[2020-03-16 07:26] VITALS: BP 151/65; PULSE 82; RESP 20; TEMP 36.8; O2SAT 96
[2020-03-16] MEDS: Nicotine 14 MG PATCH.TD24 TRANSDERMA (08:30)
[2020-03-16] MEDS: Aspirin Enteric Coated 81 MG TABLET.DR PO (08:31)
[2020-03-16] MEDS: Gabapentin 100 MG CAPSULE PO ×2 (08:31→12:05)
[2020-03-16] MEDS: 0.9 % Sodium Chloride Flush 3 ML SYRINGE IVFLUSH (08:31)
--- NOTE | 2020-03-16 11:18 | P.DS_ITS ---
DS: Providers Provider Date of admission: 03/14/20 13:32 Primary care physician: Edwar Delgado MD Consults: 03/14/20 21:29 Consult to Neurology Routine Consulting Provider: Jorge Kapadia Reason for consultation: Expressive aphasia Has provider been notified: No DS: Diagnosis Discharge Diagnosis (1) Embolic cerebral infarction: Status: Acute (2) Multiple aneurysms of cerebral artery: Status: Acute DS: Medications Discharge Medications Home Medications: Home Medications Medication Instructions Recorded Confirmed gabapentin 1 cap PO QID 03/14/20 03/14/20 metoprolol ta-hydrochlorothiaz 1 tab PO BID 03/14/20 03/14/20 ropinirole 1 tab PO BEDTIME 03/14/20 03/14/20 Previous Rx's Medication Instructions Recorded tiotropium bromide 18 mcg capsule 1 cap INHALATION DAILY #30 cap 02/25/20 with inhalation device aspirin 81 mg PO DAILY #30 tab 03/16/20 nicotine 1 patch TRANSDERMAL DAILY #14 ea 03/16/20 DS: Summary Hospital Course Hospital Course: HPI is obtained from Minnie Singh's note History of Present Illness Date of Service: 03/14/20 Chief Complaint: Abnormal speech This is a 75-year-old female with history of restless leg syndrome, hypertension, dyslipidemia who presents to the emergency department with abnormal speech. She said last evening around 23:00 she began talking to her and he told her that her speech was abnormal. She described it as slurred. This morning her symptoms persisted so he urged her to come to the emergency department for evaluation. She denied any associated vision changes, weakness, difficulty swallowing. Her speech was clear but she seemed to have some expressive aphasia. No other deficits were noted. Brain CT was unremarkable. Head and neck CTA showed 3 small brain aneurysms but no large vessel occlusion or infarct. Since her symptoms had been present since the previous day she was not a candidate for tPA. The decision was made to admit her to for further management Hospital course: This 75-year-old female who presents to the hospital with stroke-like symptoms. MRI showed multiple small acute infarcts scattered throughout the left MCA territory. 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 No significant mass effect. Neurology saw patient, recommended obtaining an echocardiogram which was done. In regards to the aneurysm neurology felt no acute intervention needed at this time. She will need a routine follow-up appointment in 6-12 months. She will also need a follow-up with PCP to monitor any further symptoms from stroke. Patient was seen by speech pathologist, will need follow-up outpatient. Patient will be discharged home with aspirin 81 mg daily. Reports muscle ache with statin and is refusing to take it. Also discussed extensively the importance of cigarette abstinence and discontinuation of smoking. Patient will be discharged on nicotine patch and will need follow-up with PCP. Time spent discussing smoking cessation with patient: more than 10 minutes Time Spent with Patient Time attestation: Total time spent providing and/or coordinating discharge services: Quality: Stroke Pt Provided Written Stroke Discharge Instructions: Patient given written information Physical Exam Vital Signs: Vital Signs: Last Vital Signs Temp 98.3 F 03/16/20 07:26 Pulse 82 03/16/20 07:26 Resp 20 03/16/20 07:26 BP 151/65 H 03/16/20 07:26 Pulse Ox 96 03/16/20 07:26 Body Mass Index 31.6 Const: General: cooperative and no acute distress Orientation/consciousness: patient oriented x3 Eyes: General: appearance normal, both eyes and all related structures Pupils: Equal, round and reactive pupils present Resp: Effort & Inspection: normal respiratory effort and able to speak in complete sentences Auscultation: clear to auscultation bilaterally Cardio: Rate: regular rate Rhythm: regular rhythm GI: Palpation (GI): Soft to palpation Auscultation: normal bowel sounds Skin: General skin exam: no rashes or lesions noted Neuro: Other: General: patient oriented x3 Cranial nerves: Yes CN's II-XII intact bilaterally, Yes Equal, round and reactive pupils present, Yes Bilaterally intact EOM present and Yes Midline tongue present Speech: Expressive aphasia improved Motor exam (neuro): 5/5 motor strength present throughout and Pronator motor function not present . Coordination, finger-to nose normal Cognition (Neuro): normal cognition General: patient oriented x3 Cranial nerves: Yes Equal, round and reactive pupils present Cognition (Neuro): normal cognition Extrem: General: Yes normal to inspection and Yes no pedal edema DS: Data Data Completed and Pending Labs on day of discharge: 03/14/20 09:12 ECG 12 lead EKG Stat EKG Documentation DIRECTED Glucose, blood poc NOW Vital Signs Q4HR CT head for stroke Stat XR chest 1V Stat 03/14/20 09:31 Glucose, Whole Blood Routine 03/14/20 09:41 Basic Metabolic Panel Stat Complete Blood Count Auto Diff Stat Hold Red Stat Prothrombin Time INR Stat Stroke Lab Use Stat Troponin-I High Sensitivity Stat 03/14/20 10:24 CT angio head neck stroke Stat 03/14/20 11:42 iohexoL 350 MG/ML [Omnipaque 350 MG/ML] 100 ml IV ONCE ONE 03/14/20 12:21 Aspirin Enteric Coated [Ecotrin] 81 mg PO ONCE ONE 03/14/20 13:18 Transfer Order Routine 03/14/20 16:08 COVID-19 ID NOW (Young) Stat 03/14/20 20:21 Magnesium Hydrox/Alum Hydrox [Maalox] 30 ml PO ONCE ONE 03/15/20 07:37 Basic Metabolic Panel DAILY@0600 Complete Blood Count Auto Diff DAILY@0600 Lipid Panel Routine Lipid Panel Routine Thyroid Stimulating Hormone Routine 03/15/20 08:00 MR head/brain wo con Routine Laboratory Last Values WBC 6.5 X10*3/uL (4.8-10.8) 03/15/20 07:37 RBC 4.64 X10*6/uL (4.20-5.50) 03/15/20 07:37 Hgb 13.8 g/dl (12.0-16.0) 03/15/20 07:37 Hct 41.9 % (37-47) 03/15/20 07:37 MCV 90.3 fL (80-98) 03/15/20 07:37 MCH 29.7 pg (27.0-33.0) 03/15/20 07:37 MCHC 32.9 g/dl (31.0-35.0) 03/15/20 07:37 RDW 14.1 % (11.0-16.0) 03/15/20 07:37 Plt Count 311 X10*3/uL (160-400) 03/15/20 07:37 MPV 9.6 fL (9.4-12.3) 03/15/20 07:37 Immature Gran % (Auto) 0.3 % (0.0-0.4) 03/15/20 07:37 Neut % (Auto) 52.6 % (45-73) 03/15/20 07:37 Lymph % (Auto) 38.1 % (20-40) 03/15/20 07:37 [place] % (Auto) 6.5 % (2-11) 03/15/20 07:37 Eos % (Auto) 1.4 % (0-4) 03/15/20 07:37 Baso % (Auto) 1.1 % (0-2) 03/15/20 07:37 Lymph # (Auto) 2.5 X10*3/uL (1.2-4.9) 03/15/20 07:37 [place] # (Auto) 0.4 X10*3/uL (0.1-1.2) 03/15/20 07:37 Eos # (Auto) 0.1 X10*3/uL (0.0-0.4) 03/15/20 07:37 Baso # (Auto) 0.1 X10*3/uL (0.0-0.2) 03/15/20 07:37 Abs Immat Gran (auto) 0.02 X10*3/uL (0.00-0.03) 03/15/20 07:37 Absolute Neuts (auto) 3.4 X10*3/uL (2.0-8.3) 03/15/20 07:37 Absolute Nucleated RBC 0.000 X10*3/uL (0.0-0.012) 03/15/20 07:37 Nucleated RBC % (auto) 0.0 /100WBC (0.0-0.2) 03/15/20 07:37 PT 11.2 SEC (10.8-13.0) 03/14/20 09:41 INR 0.9 (0.9-1.1) 03/14/20 09:41 Sodium 136 mmol/L (135-145) 03/15/20 07:37 Potassium 3.4 mmol/l (3.3-5.1) 03/15/20 07:37 Chloride 101 mmol/L (96-108) 03/15/20 07:37 Carbon Dioxide 25 mmol/L (22-29) 03/15/20 07:37 Anion Gap 13 (12-20) 03/15/20 07:37 BUN 15 mg/dL (9-16) 03/15/20 07:37 Creatinine 0.76 mg/dL (0.5-1.4) 03/15/20 07:37 Estim Creat Clear Calc 63.9 03/15/20 07:37 Estimated GFR > 60 03/15/20 07:37 POC Glucose 113 mg/dL (60-115) 03/14/20 09:31 Random Glucose 113 mg/dL (60-115) 03/15/20 07:37 Calcium 8.5 mg/dL (8.4-10.2) D 03/15/20 07:37 Troponin I High Sens 3.8 ng/L (<3.5-17.0) 03/14/20 09:41 Triglycerides 211 mg/dL 03/15/20 07:37 Triglycerides 217 mg/dL 03/15/20 07:37 Cholesterol 227 mg/dL 03/15/20 07:37 Cholesterol 230 mg/dL 03/15/20 07:37 LDL Cholesterol, Calc 144 mg/dl 03/15/20 07:37 LDL Cholesterol, Calc 148 mg/dl 03/15/20 07:37 HDL Cholesterol 40 mg/dL 03/15/20 07:37 HDL Cholesterol 40 mg/dL 03/15/20 07:37 TSH 2.19 uIU/mL (0.32-4.0) 03/15/20 07:37 Hold Red Top See Note 03/14/20 09:41 COVID-19 (KETURAH) Negative (Negative) 03/14/20 16:08 COVID-19 Clin Com See Note 03/14/20 16:08 Discharge Plan Discharge Patient Disposition: Home, Self-Care Referrals: Edwar Delgado MD [Primary Care Provider] - Jorge Kapadia MD [Physician] - Discharge Medications: New aspirin 81 mg Tablet,Delayed Release (Dr/Ec) 81 mg PO DAILY Qty: 30 RF: 0 nicotine 21 mg/24 hr patch 24 hour 1 patch transdermal DAILY Qty: 14 RF: 0 Continued tiotropium bromide [Spiriva with HandiHaler] 18 mcg capsule, w/inhalation device 1 cap inhalation DAILY Qty: 30 RF: 3 metoprolol ta-hydrochlorothiaz 50-25 mg tablet 1 tab PO BID RF: 0 ropinirole 2 mg tablet 1 tab PO BEDTIME RF: 0 gabapentin 100 mg capsule 1 cap PO QID RF: 0 Discharge Orders: Discharge Order (Routine); Ordered 12/15/20 Ordered By: Joe Mendez Diet: advance to usual diet Activity on Discharge: As tolerated Visit Report Forms: Patient Portal Discharge page Care Plan Goals: Recovery, abstain from tobacco use, avoid hospitalization, follow up with PCP Health Concerns: Recurrent stroke, abstinence from cigarretts, Brain neurysm that need close follow up with PCP and neurologist Plan of Treatment: Please see PCP for follow up to be referred to speech therapy Will need follow up with neurology in 6 months to follow up on brain aneurysm
--- NOTE | 2020-03-16 11:18 | MHC.CM.PN ---
pt dcd home with no sercveis pt will arrange own transportation home
[2020-03-16 11:28] VITALS: BP 151/65; PULSE 82; O2SAT 96
[2020-03-16 11:52] VITALS: BP 140/80; PULSE 77; RESP 20; TEMP 36.6; O2SAT 96
[2020-03-16] MEDS: Magnesium Hydrox/Alum Hydrox 30 ML ORAL.SUSP 15 ML PO (13:20)
--- NOTE | 2020-03-16 21:29 | CA_ITS ---
Transthoracic Echocardiogram Patient (Last, First, Middle): Chantell Field A Gender: Female Date of : 1945 Age: 75 Procedure Date: 03/16/2020 Procedure Type: Transthoracic Echocardiogram Location: [facility] [place] Height: 154.94 cm Weight: 58.06 kg BSA: 1.56 m2 Heart Rate: bpm Energy And Conservation Technician: SANTO Referring MD: Minnie VALENCIA Symptoms: stroke protocol Conclusions: - Normal left ventricular cavity size. There is moderately increased left ventricular wall thickness. The left ventricular systolic function is hyperdynamic. - There is no dynamic left ventricular outflow tract obstruction. - Normal right ventricular cavity size and systolic function. - No significant valvular or pericardial pathology. Findings Left Ventricle Normal left ventricular cavity size. There is moderately increased left ventricular wall thickness. The left ventricular systolic function is hyperdynamic. The visually estimated ejection fraction is >70%. There is no evidence of regional wall motion abnormalities. There is no dynamic left ventricular outflow tract obstruction. There is dynamic mid left ventricular obstruction. Diastolic function is normal for age. Right Ventricle Normal right ventricular cavity size and systolic function. Atria The left atrium is normal in size. There is no evidence of interatrial shunt by color Doppler. Aortic Valve There is a normal trileaflet aortic valve. There is no aortic valve stenosis. There is no aortic valve regurgitation. Mitral Valve There is no mitral valve regurgitation. There is no mitral valve stenosis. Mild calcification of the tip of anterior mitral valve leaflet noticed. Pulmonic Valve The pulmonic valve is likely normal. Tricuspid Valve Normal tricuspid valve structure and function. There is trace tricuspid valve regurgitation. Normal right atrial pressure. There is no evidence of pulmonary hypertension. Great Vessels All visible segments of the aorta are normal in size. The visualized portions of the pulmonary artery and branches are normal. Venous The inferior vena cava is normal in size and collapses greater than 50% with inspiration. Pericardium/Pleural There is no evidence of pericardial effusion. Prior Study Comparison No prior study available for comparison. Measurements 2D Linear Measurements IVSd: 1.20 0.6-0.9/0.6-1.0 cm LVIDd: 4.33 3.9-5.3/4.2-5.9 cm LVIDd Index: 2.78 2.4-3.2/2.2-3.1 cm/m2 LVIDs: 2.31 2.0-3.6 cm LVPWd: 1.31 0.7-1.1 cm Ao Root: 2.70 2.1-3.5 cm LA Diam: 3.40 2.7-3.8/3.0-4.0 cm LAIDs Index: 2.18 1.5-2.3 cm/m2 LV Mass: 248.38 67-162/88-224 g LV Mass Index: 159.22 43-95/49-115 g/m2 LVOT Diam: 1.90 3.0+(-)1.3 cm 2D Systolic Function EF 4C: 82.10 >55% EF 2C: 86.90 >55% EF BiP: 84.30 >55% Mitral Valve MV Pk E: 0.65 MV PK A: 1.05 MV Decel Time: 243.00 E/A: 0.60 E'Lateral: 8.41 E'Medial: 7.35 E/E' Med: 8.80 E/E' Lat: 7.70 PHT: 71.00 MVA PHT: 3.10 Decel Winn: 2.68 Aortic Valve AoV Pk Kirk: 1.41 AoV Pk Grad: 8.00 LVOT LVOT Pk Kirk: 1.22 LVOT Mn Kirk: 0.91 LVOT VTI: 0.26 LVOT Pk Grad: 6.00 LVOT Diam: 1.90 LVOT Area: 2.84 Diastolic Function MV Pk E: 0.65 MV Pk A: 1.05 E/A: 0.60 E'Medial: 7.35 E/E' Med: 8.80 E' Laterial: 8.41 E/E' Lat: 7.70 Tricuspid Valve TR Pk Kirk: 2.13 TR Pk Grad: 18.00 RA Press: 3.00 RVSP: 21.00 Great Vessels Aorta Ao Root-2D: 2.70 2.0-3.7 cm Ao Asc: 3.10 2.1-3.4 cm Updated in Other Vendor System with Status of Final Lj Lozano MD electronically signed on 03/16/2020 3:14:00 PM with status of Final
== END 2020-03-16 14:10 | disposition home or self-care (01) | DRG 66 ==
LOC: HO.ED 12:30 → HO.IMC 03-15 06:11
PROVIDERS: Physician Assistant Medical; Admitting Provider Internal Medicine; Emergency Provider Emergency Medicine; PCP Internal Medicine; Visit Provider Internal Medicine
DX: I63.412 Cerebral infarction due to embolism of left middle cerebral artery (principal); R47.01 Aphasia; G25.81 Restless legs syndrome; G62.9 Polyneuropathy, unspecified; E78.5 Hyperlipidemia, unspecified; I67.1 Cerebral aneurysm, nonruptured; F17.210 Nicotine dependence, cigarettes, uncomplicated; I10 Essential (primary) hypertension; R29.702 NIHSS score 2; Z71.6 Tobacco abuse counseling; Z20.828 Contact with and (suspected) exposure to other viral communicable diseases; Z88.6 Allergy status to analgesic agent; Z79.899 Other long term (current) drug therapy; Z66 Do not resuscitate
CPT/HCPCS: 36415; 70450; 70496; 70498; 70551; 71045; 80048; 80061; 82947; 84443; 84484; 85025; 85610; 87635; 92507; 92610; 93005; 93306; 97110; 97116; 97162; 97166; 99285; J1650; Q9967

== ENCOUNTER 2020-06-25 23:22 | Inpatient (IN) | payer MEDICARE, SELFPAY ==
--- NOTE | ~2020-06-25 | XR_ITS ---
EXAMINATION: XR CHEST CLINICAL INFORMATION: Stroke COMPARISON: Chest radiograph 10/13/[address] 01/02/2020 TECHNIQUE: Frontal view of the chest was obtained. FINDINGS: The heart and pulmonary vessels appear normal. Again seen is a minimal patchy density in the left midlung unchanged from the prior study. No new infiltrates, lung masses or effusions are seen. XR/XR chest 1V IMPRESSION: No acute intrathoracic disease. Patchy opacity in the lingula that has been seen on prior chest radiograph and chest CT is unchanged
--- NOTE | ~2020-06-25 | CT_ITS ---
EXAMINATION: CT angio head neck stroke CLINICAL INFORMATION: Slurred speech. COMPARISON: CT angiogram of the head and neck 03/14/2020. TECHNIQUE: Jewelry Facer images were obtained. A CT angiogram of the head and neck was performed in the arterial phase after the intravenous administration of 70 mL Omnipaque 350. Pre and delayed postcontrast images of the head were also obtained. MIP reconstructions were generated in multiple orientations at the acquisition workstation. Multiple three-dimensional surface rendered images and maximum intensity projection images were generated on a dedicated 3-D lab workstation. Arterial stenoses are measured in accordance with NASCET criteria or similar method if applicable. This CT examination was performed using dose optimization techniques as appropriate, including one or more of the following: Automated exposure control, iterative reconstruction, and adjustment of technique factors (mA and/or kVp) according to patient size (this includes techniques or standardized protocols for targeted exams where dose is matched to indication/reason for exam). Total exam dose-length product 1423 mGy-cm FINDINGS: Head: There is ill-defined hypoattenuation within the left periatrial white matter best illustrated on axial image 34 of 57 series 3. This finding presumably represents evolution of a known white matter infarct that was depicted on the brain MRI from 03/15/2020. A few additional scattered chronic small vessel ischemic changes are visualized within the periventricular white matter. Postcontrast images reveal no abnormal mass or enhancement within the intracranial compartment. No intracranial mass effect or midline shift. No hydrocephalus. The calvarium and skull base are intact. Mastoid air cells and middle ear cavities are well aerated. No active paranasal sinus disease. CT angiogram neck: Scattered atherosclerotic calcification involves the aortic arch apex. Origins of the major aortic branches are widely partially obscured by high density contrast material within the innominate vein. Common carotid arteries are patent. Partially calcified atheromatous plaque involves both carotid bifurcations. No stenosis of the extracranial internal carotid arteries. The cervical segments of the vertebral arteries as well as their origins are patent. CT angiogram head: Intracranial internal carotid arteries are patent. Intradural vertebral artery segments and basilar artery are patent. There is a laterally projecting saccular aneurysm involving the ophthalmic segment of the right internal carotid measuring 3.5 mm from base apex. A right laterally projecting aneurysm of the anterior communicating artery measures 3.1 mm from base apex. Saccular intracranial aneurysms involving both middle cerebral artery bifurcations are also noted. The right MCA bifurcation aneurysm measures 5.5 mm. The left MCA aneurysm has a relatively broad base and is best depicted on coronal MIP image 7 of 37 series 11 measuring 2.2 cm from base to apex. Anterior, middle, and posterior cerebral complexes are otherwise unremarkable in that there is no high-grade stenosis or proximal large vessel occlusion. Other: There is a 1.3 cm cyst and/or nodule within the left lobe the thyroid gland. Soft tissues of the neck are otherwise unremarkable. Lung apices are clear. There is advanced multilevel degenerative spondylosis of the cervical spine. CT/CT angio head neck stroke IMPRESSION: There are a few small chronic infarcts within the left cerebral hemisphere. No evidence of acute territorial infarct or hemorrhage. No abnormal intracranial mass or enhancement. No stenosis of the cervical carotid or vertebral arteries. No high-grade stenosis or proximal occlusion is visualized within the intracranial vessels. There are 4 identifiable saccular intracranial aneurysm involving both middle cerebral artery bifurcations, the ophthalmic segment of the right internal carotid artery, and the anterior communicating artery. Each of these aneurysms has remained stable when compared to the CT angiogram of the head and neck from 03/14/2020.
--- NOTE | ~2020-06-25 | MR_ITS ---
EXAMINATION: MRI BRAIN WITHOUT CONTRAST CLINICAL INFORMATION: TIA/stroke. COMPARISON: CT scan of the head 06/25/2020. Brain MRI 03/15/2020. TECHNIQUE: Multiplanar MR imaging of the brain was performed without contrast. FINDINGS: There is a chronic white matter infarct and a few small foci of cortical encephalomalacia within the vascular territory of left middle cerebral artery that coincide with the findings demonstrated on MR imaging from 03/15/2020. Scattered chronic small vessel ischemic changes are also visualized within the periventricular white matter. No acute territorial infarct. No pathological magnetic susceptibility artifact. Intracranial vascular flow voids are maintained. There is no intracranial mass effect or midline shift. No abnormal extra-axial collection. Lateral and third ventricles are normal. No hydrocephalus. There is multilevel degenerative spondylosis visualized within the upper cervical spine. Midline structures including the cervicomedullary junction are normal. No acute bone marrow signal changes. There is no mastoid or middle ear effusion. No active paranasal sinus disease. MR/MR head/brain wo con IMPRESSION: There are chronic changes of an old infarct within the vascular territory of the left middle cerebral artery and scattered chronic small vessel ischemic changes within the periventricular white matter. No evidence of acute territorial infarct or hemorrhage.
--- NOTE | ~2020-06-25 | CT_ITS ---
EXAMINATION: CT HEAD WITHOUT CONTRAST CLINICAL INFORMATION: Stroke protocol. Slurred speech. COMPARISON: 03/14/2020. TECHNIQUE: Contiguous helical images of the brain were obtained without IV contrast. Multiplanar reconstructions were performed. DLP: 632 mGy-cm. FINDINGS: There are no pathologic extra-axial fluid collections. The lateral, third, fourth ventricles are prominent, though stable, age-appropriate and concordant with the appearance of the sulci. There is no evidence for acute intraparenchymal hemorrhage or infarct. There is neither mass nor mass effect. There is no shift of midline structures. The paranasal sinuses and mastoid air cells are clear. There are no osseous lesions. CT/CT head for stroke IMPRESSION: No evidence for acute intracranial injury. The aforementioned was communicated to Dr. Davies at 0008 hours. Automated exposure control (Care Dose) Adjustment of the mA and/or kv according to patient size (this includes techniques or standardized protocols for targeted exams where dose is matched to indication / reason for exam; i.e. extremities or head).
[2020-06-25 23:36] VITALS: BP 137/63; PULSE 81; RESP 16; TEMP 36.6; O2SAT 96; BMI 30.9
--- NOTE | 2020-06-25 23:37 | ECG_ITS ---
Test Reason : SLURRED SPEECH Blood Pressure : / mmHG Vent. Rate : 073 BPM Atrial Rate : 073 BPM P-R Int : 166 ms QRS Dur : 080 ms QT Int : 410 ms P-R-T Axes : 060 078 074 degrees QTc Int : 451 ms Normal sinus rhythm Possible Left atrial enlargement Nonspecific ST abnormality Abnormal ECG When compared with ECG of 14-MAR-2020 09:55, No significant changes seen Referred By: Pa Davies Electronically Signed By:JUAN F WOOD
--- NOTE | 2020-06-25 23:54 | PC.NURSE ---
Off to CT on hospital bed.
[2020-06-25 23:56] LABS: Prothrombin Time Whole Bld POC 10.4 sec (11.1-13.5); ~PT, ~INR - Anti Coag Clinic 0.9 (0.9-1.1)
[2020-06-25 23:56] LABS: MANUAL DIFF FLAG NO
[2020-06-25 23:58] LABS: Glucose, Whole Blood 104 mg/dL (60-115)
[2020-06-25 23:58] LABS: Basophils Absolute Auto 0.1 X10*3/uL (0.0-0.2); Eosinophils Absolute Auto 0.1 X10*3/uL (0.0-0.4); Eosinophils Percent Auto 1.5 % (0-4); Hematocrit 43.3 % (37-47); Hemoglobin 14.6 g/dl (12.0-16.0); Imm Gran Abs Auto 0.02 X10*3/uL (0.00-0.03); Imm Gran Pct Auto 0.2 % (0.0-0.4); Lymphocytes Absolute Auto 3.2 X10*3/uL (1.2-4.9); Lymphocytes Percent Auto 39.4 % (20-40); Mean Corpuscular HGB Conc 33.7 g/dl (31.0-35.0); Mean Corpuscular Volume 88.9 fL (80-98); Mean Platelet Volume 9.5 fL (9.4-12.3); Monocytes Absolute Auto 0.8 X10*3/uL (0.1-1.2); Monocytes Percent Auto 9.5 % (2-11); Neutrophils Absolute Auto 3.9 X10*3/uL (2.0-8.3); Neutrophils Percent Auto 48.4 % (45-73); Platelet Count 360 X10*3/uL (160-400); Red Blood Count 4.87 X10*6/uL (4.20-5.50); Red Cell Distribution Width 14.4 % (11.0-16.0)
[2020-06-26] VITALS (9 sets, daily range): BP systolic 103–153; BP diastolic 49–74; PULSE 67–88; RESP 16–18; TEMP 36.6–37.2; O2SAT 93–96
[2020-06-26 00:04] LABS: INTERNATIONAL NORM RATIO 0.9 (0.9-1.1); Prothrombin Time 11.2 SEC (10.8-13.0)
[2020-06-26 00:07] LABS: Partial Thromboplastin Time 32.9 SEC (24.1-38.0)
[2020-06-26 00:12] LABS: Stroke Lab Use COMPLETE
--- NOTE | 2020-06-26 00:12 | ED.NEUROSD ---
HPI - Neuro Symptoms/Deficit General Chief Complaint: Stroke Stated Complaint: ?STROKE Time Seen by Provider: 06/25/20 23:35 Source: patient Mode of arrival: ambulatory Limitations: no limitations History of Present Illness HPI Narrative: 75-year-old female walked to the emergency department for difficulty speaking (patient keeps repeating the same word and can talk fluently) no other numbness or weakness association with the symptoms, patient complained of right-sided neck pain with this, symptoms started any time between 17:00-18:00 o'clock (patient cannot give exact time) which is about 3-1/2 hours from presenting to the emergency department. Patient had similar presentation about 3 months ago patient was not given tPA because the delayed presentation to the emergency department and resolution of her symptoms, but next day MRI showed multiple acute emboli that was suggested to be from atrial fibrillation. Patient is known to have multiple stable cerebral aneurysms. Related Data Home Medications Medication Instructions Recorded Confirmed gabapentin 1 cap PO QID 03/14/20 03/14/20 metoprolol ta-hydrochlorothiaz 1 tab PO BID 03/14/20 03/14/20 ropinirole 1 tab PO BEDTIME 03/14/20 03/14/20 Previous Rx's Medication Instructions Recorded tiotropium bromide 18 mcg capsule 1 cap INHALATION DAILY #30 cap 02/25/20 with inhalation device aspirin 81 mg PO DAILY #30 tab 03/16/20 nicotine 1 patch TRANSDERMAL DAILY #14 ea 03/16/20 Allergies Allergy/AdvReac Type Severity Reaction Status Date / Time ibuprofen [From MOTRIN] Allergy Mild GI UPSET Verified 06/25/20 23:36 Review of Systems Review of Systems: All other systems are reviewed and are negative Constitutional: Reports as per HPI and Reports no additional constitutional complaints Eyes: Reports as per HPI and Reports no additional eye complaints Reports system reviewed and no additional complaints, except as documented Cardiovascular: Reports as per HPI and Reports no additional cardiovascular complaints Respiratory: Reports as per HPI and Reports no additional respiratory complaints Gastrointestinal: Reports as per HPI and Reports no additional gastrointestinal complaints Genitourinary: Reports no additional female genitourinary complaints Musculoskeletal: Reports no additional musculoskeletal complaints Skin/Breast: Reports system reviewed and no additional complaints, except as docu Psychiatric: Reports no additional psychiatric complaints Endocrine: Reports no additional endocrine complaints Hematologic/Lymphatic: Reports no additional hematologic/lymphatic complaints Allergic/Immunologic: Reports no additional allergic/immunologic complaints Reports system reviewed and no additional complaints, except as documented and Reports Abnormal speech present [facility] Past Medical History Medical History Arthritis Cerebrovascular accident Embolic cerebral infarction Expressive aphasia HLD (hyperlipidemia) Hypertension Peripheral neuropathy Restless leg syndrome Transient cerebral ischemia Surgical History History of partial hysterectomy Social History Social History Household Members: Spouse and Children Housing: House Alcohol intake: former Smoking Status: Current every day smoker Tobacco Type: Cigarette Cigarettes Per Day: 10 Advance Directives: No Advance Directives Information Provided: No service: No Physical Exam Vital Signs: Vital Signs: Last Vital Signs Temp 97.9 F 06/25/20 23:36 Pulse 81 06/25/20 23:36 Resp 16 06/25/20 23:36 BP 137/63 06/25/20 23:36 Pulse Ox 96 06/25/20 23:36 Body Mass Index 30.9 Vital signs have been reviewed as appeared to be correct. Blood pressure normal. Heart rate normal. Respiration rate normal. Temperature normal. Oxygen saturation normal. Appearance: Alert. Oriented X3. No acute distress. Head: Normal external exam. Normocephalic. Atraumatic. No [place] signs noted. No raccoon eyes noted Eyes: PERRLA. EOMI. Conjunctiva and sclera normal. Eyelids normal. ENT: TM's Normal. Pharynx normal. Uvula midline. Moist mucous membranes. No trismus noted. No drooling noted. No muffled voice noted. Neck: Normal inspection. Neck supple. FROM. No adenopathy. Thyroid Normal. No meningeal signs. No neck mass noted. CVS: Normal heart rate and rhythm. Heart sound normal. No murmurs noted. Pulses normal throughout. Respiratory: No respiratory distress. Painless inspiration. Breath sounds normal. No wheezes/rales/rhonchi noted. Chest nontender. No accessory muscle usage noted or decreased air movement noted. Abdomen: Soft and nontender. Bowel sounds normal in all 4 quadrants. No distention noted. No organomegaly noted. No visible injury noted. Back: No CVA tenderness. Full range of motion noted. Skin: Skin warm and dry. Normal skin color. Normal skin turgor. No rashes/lesions/lacerations noted. Extremities: No lower extremity edema. Extremities exhibit normal range of motion. Extremities nontender. Neuro: Oriented X 3. No motor deficit. No sensory deficit. Reflexes normal. refer to NIH scale. Course Course Course Narrative: 75-year-old female presented to the emergency department with difficulty speaking which started 3-1/2 hours before patient was evaluated in the emergency department. Head CT is unremarkable, CTA of the head and neck showed stable old cerebral 3 aneurysms with no rupture. EKG is in normal sinus rhythm. Patient had previous similar presentation few months ago had an MRI next day which showed acute small embolic strokes. Because of the low NIH stroke scale of 1 and the delayed presentation to the hospital patient is not a candidate for tPA, the case discussed with Dr. Davis who also recommended to give the patient aspirin and Plavix and admit for MRI in the morning. MDM - Neuro Symptoms/Deficit Lab Data Attestation: I reviewed the patient's lab results. Result diagrams: 06/25/20 23:51 06/25/20 23:51 Labs: Lab Results 06/25/20 06/25/20 06/25/20 Range/Units 23:46 23:50 23:51 WBC 8.0 (4.8-10.8) X10*3/uL RBC 4.87 (4.20-5.50) X10*6/uL Hgb 14.6 (12.0-16.0) g/dl Hct 43.3 (37-47) % MCV 88.9 (80-98) fL MCH 30.0 (27.0-33.0) pg MCHC 33.7 (31.0-35.0) g/dl RDW 14.4 (11.0-16.0) % Plt Count 360 (160-400) X10*3/uL MPV 9.5 (9.4-12.3) fL Immature Gran % (Auto) 0.2 (0.0-0.4) % Neut % (Auto) 48.4 (45-73) % Lymph % (Auto) 39.4 (20-40) % [place] % (Auto) 9.5 (2-11) % Eos % (Auto) 1.5 (0-4) % Baso % (Auto) 1.0 (0-2) % Lymph # (Auto) 3.2 (1.2-4.9) X10*3/uL [place] # (Auto) 0.8 (0.1-1.2) X10*3/uL Eos # (Auto) 0.1 (0.0-0.4) X10*3/uL Baso # (Auto) 0.1 (0.0-0.2) X10*3/uL Abs Immat Gran (auto) 0.02 (0.00-0.03) X10*3/uL Absolute Neuts (auto) 3.9 (2.0-8.3) X10*3/uL Absolute Nucleated RBC 0.000 (0.0-0.012) X10*3/uL Nucleated RBC % (auto) 0.0 (0.0-0.2) /100WBC PT (10.8-13.0) SEC Whole Blood PT 10.4 L (11.1-13.5) sec INR (0.9-1.1) Whole Blood INR 0.9 (0.9-1.1) APTT (24.1-38.0) SEC Sodium (135-145) mmol/L Potassium (3.3-5.1) mmol/L Chloride (96-108) mmol/L Carbon Dioxide (22-29) mmol/L Anion Gap (12-20) BUN (9-16) mg/dL Creatinine (0.5-1.4) mg/dL Estim Creat Clear Calc Estimated GFR POC Glucose 104 (60-115) mg/dL Random Glucose (60-115) mg/dL Calcium (8.4-10.2) mg/dL Total Creatine Kinase (26-140) U/L Troponin I High Sens (<3.5-17.0) ng/L 06/25/20 06/25/20 06/25/20 Range/Units 23:51 23:51 23:51 WBC (4.8-10.8) X10*3/uL RBC (4.20-5.50) X10*6/uL Hgb (12.0-16.0) g/dl Hct (37-47) % MCV (80-98) fL MCH (27.0-33.0) pg MCHC (31.0-35.0) g/dl RDW (11.0-16.0) % Plt Count (160-400) X10*3/uL MPV (9.4-12.3) fL Immature Gran % (Auto) (0.0-0.4) % Neut % (Auto) (45-73) % Lymph % (Auto) (20-40) % [place] % (Auto) (2-11) % Eos % (Auto) (0-4) % Baso % (Auto) (0-2) % Lymph # (Auto) (1.2-4.9) X10*3/uL [place] # (Auto) (0.1-1.2) X10*3/uL Eos # (Auto) (0.0-0.4) X10*3/uL Baso # (Auto) (0.0-0.2) X10*3/uL Abs Immat Gran (auto) (0.00-0.03) X10*3/uL Absolute Neuts (auto) (2.0-8.3) X10*3/uL Absolute Nucleated RBC (0.0-0.012) X10*3/uL Nucleated RBC % (auto) (0.0-0.2) /100WBC PT 11.2 (10.8-13.0) SEC Whole Blood PT (11.1-13.5) sec INR 0.9 (0.9-1.1) Whole Blood INR (0.9-1.1) APTT 32.9 (24.1-38.0) SEC Sodium 140 (135-145) mmol/L Potassium 3.5 (3.3-5.1) mmol/L Chloride 100 (96-108) mmol/L Carbon Dioxide 26 (22-29) mmol/L Anion Gap 18 (12-20) BUN 24 H D (9-16) mg/dL Creatinine 0.90 (0.5-1.4) mg/dL Estim Creat Clear Calc 57.5 Estimated GFR > 60 POC Glucose (60-115) mg/dL Random Glucose 100 (60-115) mg/dL Calcium 9.1 D (8.4-10.2) mg/dL Total Creatine Kinase 74 (26-140) U/L Troponin I High Sens 4.3 (<3.5-17.0) ng/L Imaging Data Chest x-ray: Radiologist's impression: No acute intrathoracic disease. Patchy opacity in the lingula that has been seen on prior chest radiograph and chest CT is unchanged CT scan - head: Radiologist's impression: No acute intracranial pathology. ECG Data Interpretation: Normal sinus rhythm at 73 beats per minutes, normal axis deviation, normal intervals, no ST-T changes. NIH Stroke Scale Level of Consciousness: Alert Level of Consciousness Questions: Answers both questions correctly Level of Consciousness Commands: Performs both tasks correctly Best Gaze: Normal Visual: No visual loss Facial Palsy: Normal Motor Arm (Right): No drift Motor Arm (Left): No drift Motor Leg (Right): No drift Motor Leg (Left): No drift Limb Ataxia: Absent Sensory: Normal Best Language: Mild to moderate aphasia (Repetitive aphasia) Dysarthia: Normal Extinction and Inattention: No abnormality Score: 1 Discharge Plan Discharge Clinical Impression: Multiple aneurysms of cerebral artery, Cerebrovascular accident Patient Disposition: Admitted As Inpatient Prescriptions: No Action tiotropium bromide [Spiriva with HandiHaler] 18 mcg capsule, w/inhalation device 1 cap inhalation DAILY Qty: 30 RF: 3 metoprolol ta-hydrochlorothiaz 50-25 mg tablet 1 tab PO BID RF: 0 ropinirole 2 mg tablet 1 tab PO BEDTIME RF: 0 gabapentin 100 mg capsule 1 cap PO QID RF: 0 aspirin 81 mg Tablet,Delayed Release (Dr/Ec) 81 mg PO DAILY Qty: 30 RF: 0 nicotine 21 mg/24 hr patch 24 hour 1 patch transdermal DAILY Qty: 14 RF: 0
[2020-06-26 00:18] LABS: Anion Gap 18 (12-20); Blood Urea Nitrogen 24 mg/dL (9-16); Calcium 9.1 mg/dL (8.4-10.2); Carbon Dioxide 26 mmol/L (22-29); Chloride 100 mmol/L (96-108); Creatinine Clr Calc Pharmacy 57.5; Estimated Glomerular Filt Rate > 60; Glucose Random 100 mg/dL (60-115); Potassium 3.5 mmol/L (3.3-5.1); Sodium 140 mmol/L (135-145)
[2020-06-26 00:22] LABS: Troponin-I High Sensitivity 4.3 ng/L (<3.5-17.0)
[2020-06-26] MEDS: iohexoL 350 MG/ML 75 ML INFUS..BTL 70 ML IV (00:29)
[2020-06-26] MEDS: Clopidogrel Bisulfate 75 MG TABLET PO ×2 (01:20→07:30)
[2020-06-26] MEDS: Aspirin Enteric Coated 325 MG TABLET.DR PO (01:20)
--- NOTE | 2020-06-26 01:22 | PC.NURSE ---
Pt passing swallow eval, swallowing without difficulty or hesitancy. Pt medicated per MAY. VSS. Continue to monitor.
--- NOTE | 2020-06-26 01:33 | PC.NURSE ---
Hospitalist at bedside for primary eval.
--- NOTE | 2020-06-26 01:55 | PC.NURSE ---
Pt reporting heartburn at this time, states she takes Tums at home for heartburn. Pt reports eating a cheeseburger for dinner prior to coming to the ED. Pt requesting something for heartburn, aware. VSS. Continue to monitor.
[2020-06-26 02:59] LABS: COVID-19 Test Negative (Negative)
--- NOTE | 2020-06-26 03:07 | PC.NURSE ---
Pt medicated by clinic charge nurse for vomiting/heartburn. residential air sealing technician @ bedside to obtain 0300 labs.
[2020-06-26] MEDS: ondansetron HCL 4 MG/2 ML VIAL IVPUSH (03:08)
[2020-06-26 03:24] LABS: MANUAL DIFF FLAG NO
[2020-06-26 03:25] LABS: Basophils Absolute Auto 0.1 X10*3/uL (0.0-0.2); Basophils Percent Auto 0.8 % (0-2); Eosinophils Absolute Auto 0.1 X10*3/uL (0.0-0.4); Eosinophils Percent Auto 0.8 % (0-4); Hematocrit 42.9 % (37-47); Hemoglobin 14.2 g/dl (12.0-16.0); Imm Gran Abs Auto 0.03 X10*3/uL (0.00-0.03); Imm Gran Pct Auto 0.3 % (0.0-0.4); Lymphocytes Absolute Auto 2.5 X10*3/uL (1.2-4.9); Lymphocytes Percent Auto 28.6 % (20-40); Mean Corpuscular HGB Conc 33.1 g/dl (31.0-35.0); Mean Corpuscular Hemoglobin 29.6 pg (27.0-33.0); Mean Corpuscular Volume 89.6 fL (80-98); Mean Platelet Volume 9.5 fL (9.4-12.3); Monocytes Absolute Auto 0.6 X10*3/uL (0.1-1.2); Monocytes Percent Auto 6.4 % (2-11); Neutrophils Absolute Auto 5.4 X10*3/uL (2.0-8.3); Neutrophils Percent Auto 63.1 % (45-73); Platelet Count 329 X10*3/uL (160-400); Red Blood Count 4.79 X10*6/uL (4.20-5.50); Red Cell Distribution Width 14.5 % (11.0-16.0); White Blood Count 8.6 X10*3/uL (4.8-10.8)
[2020-06-26] MEDS: Calcium Carbonate 750 MG TAB.CHEW PO (03:40)
[2020-06-26 03:59] LABS: Anion Gap 18 (12-20); Blood Urea Nitrogen 22 mg/dL (9-16); Calcium 9.3 mg/dL (8.4-10.2); Carbon Dioxide 24 mmol/L (22-29); Chloride 99 mmol/L (96-108); Creatinine Clr Calc Pharmacy 60.2; Estimated Glomerular Filt Rate > 60; Glucose Random 123 mg/dL (60-115); Potassium 3.5 mmol/L (3.3-5.1); Sodium 137 mmol/L (135-145)
--- NOTE | 2020-06-26 03:59 | PC.NURSE ---
This RN giving a report to [facility].
--- NOTE | 2020-06-26 06:21 | PM.IMHP ---
History of Present Illness Date of Service: 06/26/20 Chief Complaint: Dysarthria This is a 75-year-old female with past medical history HTN, HLD, restless leg syndrome, and recently diagnosed CVA in March of 2020 who presents to the hospital complaining of dysarthria. Patient reports that her symptoms started around 8:00 p.m., she felt funny, started having headache on the right side of her neck, pounding, nonradiating, and had difficulty speaking and slurring her words. She had no lower or upper extremity weakness, no numbness or tingling. No facial droop. She feels that she still has difficulty finding words. When patient was discharged in March she still had some speech difficulty but reports that that is now worse. She is currently on aspirin and has had history of not tolerating statins. She otherwise denies any change in vision, no abdominal pain nausea or vomiting, no chest pain, no shortness of breath, no cough, no urinary symptoms, no diarrhea constipation, no lower extremity edema. On arrival to the ED hemodynamically stable with no significant abnormal vitals. BP is 120/59. Labs are significant for WBC count of 8.0, hemoglobin 14.6, PT of 11.2, INR 0.9, sodium of 140, potassium 3.5, COVID-19 negative, Head CT showed no evidence for acute intracranial injury, head and neck CT angiogram pending read, chest x-ray negative Neurology was consulted by ED physician, recommended starting Plavix an MRI in a.m. Past medical history as below lung confirm the patient Review of Systems Review of Systems: Yes all other systems are reviewed and are negative [facility] Medical History Arthritis Cerebrovascular accident Embolic cerebral infarction Expressive aphasia HLD (hyperlipidemia) Hypertension Peripheral neuropathy Restless leg syndrome Transient cerebral ischemia Surgical History History of partial hysterectomy Social History Household Members: Spouse and Children Household Members Other:: Spouse and son Housing: House Do you presently have visiting nurse or other home services: No Alcohol intake: former Smoking Status: Current every day smoker Tobacco Type: Cigarette Packs Per Day: 0.5 Cigarettes Per Day: 10.0 Years Smoked: 60 Smoked in Last 30 Days: Yes Patient Interested in Nicotine Replacement: Yes Patient Given Instructions on How to Stop Smoking: Yes Date Education Initiated: 06/26/20 Use of substances other than those prescribed or required for medical reasons: No Have you been hit, kicked, punched, or otherwise hurt by someone within the past year? If so, by whom?: No Do you feel safe in your current relationship?: Yes Is there a partner from a previous relationship who is making you feel unsafe now?: No Are you made to feel afraid or neglected: No Advance Directives: No Advance Directives Information Provided: No Advance Directives on File: No (Pt states wish to be DNR/DNI, will fill out paperwork) Do you have thoughts of harming others: None Do you have a plan to hurt others: No Plan Recently lost weight without trying: No service: No Meds Allergies Allergy/AdvReac Type Severity Reaction Status Date / Time ibuprofen [From MOTRIN] Allergy Mild GI UPSET Verified 06/25/20 23:36 Active Medications: Current Medications Generic Name Dose Route Start Last Admin Trade Name Freq PRN Reason Stop Dose Admin Acetaminophen 650 mg 06/26/20 03:00 Acetaminophen 325 Mg Tablet PO Q6H PRN Pain, Mild (Pain Scale 1-3) Al Hydroxide/Mg Hydroxide 15 ml 06/26/20 02:52 Magnesium Hydrox/Alum Hydrox 30 Ml Oral.Susp PO Q6H PRN Heartburn Aspirin 81 mg 06/26/20 09:00 Aspirin Enteric Coated 81 Mg Tablet.Dr PO DAILY [facility] Atorvastatin Calcium 80 mg 06/26/20 21:00 Atorvastatin Calcium 80 Mg Tablet PO BEDTIME [facility] Clopidogrel Bisulfate 75 mg 06/26/20 09:00 Clopidogrel Bisulfate 75 Mg Tablet PO DAILY [facility] Docusate Sodium 100 mg 06/26/20 03:00 Docusate Sodium 100 Mg Capsule PO DAILY PRN Constipation Gabapentin 100 mg 06/26/20 09:00 Gabapentin 100 Mg Capsule PO QID [facility] Ondansetron HCl 4 mg 06/26/20 02:52 06/26/20 03:08 Ondansetron Hcl 4 Mg/2 Ml Vial IVPUSH 4 mg Q8H PRN Administration Nausea and Vomiting Ropinirole HCl 2 mg 06/26/20 21:00 Ropinirole Hcl 2 Mg Tablet PO BEDTIME [facility] Tiotropium [place] 1 puff 06/26/20 09:00 Tiotropium [place] 18 Mcg Cap.W.Dev INHALE DAILY [facility] Home Medications Medication Instructions Recorded Confirmed Last Taken Type gabapentin 100 mg PO QID 03/14/20 06/26/20 06/24/20 21:00 History metoprolol ta-hydrochlorothiaz 1 tab PO DAILY 03/14/20 03/14/20 06/25/20 18:00 History ropinirole 2 mg PO BEDTIME 03/14/20 06/26/20 06/24/20 21:00 History Physical Exam Vital Signs and Narrative: Vital Signs: Last Vital Signs Temp 97.9 F 06/26/20 04:37 Pulse 74 06/26/20 04:37 Resp 18 06/26/20 04:37 BP 138/60 06/26/20 04:37 Pulse Ox 94 06/26/20 04:37 Body Mass Index 30.9 Const: General: cooperative and no acute distress Orientation/consciousness: patient oriented x3 Eyes: General: appearance normal, both eyes and all related structures Resp: Effort & Inspection: normal respiratory effort Cardio: Rate: regular rate Rhythm: regular rhythm GI: Palpation (GI): Soft to palpation Auscultation: normal bowel sounds Skin: General skin exam: no rashes or lesions noted Neuro: Other: expressive aphasia, dysarthria strenghth 5/5 in all extremities, no visual defect General: patient oriented x3 Cognition (Neuro): normal cognition Extrem: General: Yes normal to inspection and Yes no pedal edema Results Labs CBC and Chem 7: 06/26/20 03:15 06/26/20 03:15 Labs: Laboratory Results - last 24 hr 06/25/20 06/25/20 06/25/20 23:46 23:50 23:51 MCV 88.9 MCH 30.0 MCHC 33.7 RDW 14.4 Plt Count 360 MPV 9.5 Immature Gran % (Auto) 0.2 Neut % (Auto) 48.4 Lymph % (Auto) 39.4 [place] % (Auto) 9.5 Eos % (Auto) 1.5 Baso % (Auto) 1.0 Lymph # (Auto) 3.2 [place] # (Auto) 0.8 Eos # (Auto) 0.1 Baso # (Auto) 0.1 Abs Immat Gran (auto) 0.02 Absolute Neuts (auto) 3.9 Absolute Nucleated RBC 0.000 Nucleated RBC % (auto) 0.0 PT Whole Blood PT 10.4 L INR Whole Blood INR 0.9 APTT Anion Gap Estim Creat Clear Calc Estimated GFR POC Glucose 104 Random Glucose Calcium Total Creatine Kinase Troponin I High Sens COVID-19 ([facility]) COVID-19 Clin Com 06/25/20 06/25/20 06/25/20 23:51 23:51 23:51 MCV MCH MCHC RDW Plt Count MPV Immature Gran % (Auto) Neut % (Auto) Lymph % (Auto) [place] % (Auto) Eos % (Auto) Baso % (Auto) Lymph # (Auto) [place] # (Auto) Eos # (Auto) Baso # (Auto) Abs Immat Gran (auto) Absolute Neuts (auto) Absolute Nucleated RBC Nucleated RBC % (auto) PT 11.2 Whole Blood PT INR 0.9 Whole Blood INR APTT 32.9 Anion Gap 18 Estim Creat Clear Calc 57.5 Estimated GFR > 60 POC Glucose Random Glucose 100 Calcium 9.1 D Total Creatine Kinase 74 Troponin I High Sens 4.3 COVID-19 ([facility]) COVID-19 Clin Com 06/26/20 06/26/20 06/26/20 02:37 03:15 03:15 MCV 89.6 MCH 29.6 MCHC 33.1 RDW 14.5 Plt Count 329 MPV 9.5 Immature Gran % (Auto) 0.3 Neut % (Auto) 63.1 Lymph % (Auto) 28.6 [place] % (Auto) 6.4 Eos % (Auto) 0.8 Baso % (Auto) 0.8 Lymph # (Auto) 2.5 [place] # (Auto) 0.6 Eos # (Auto) 0.1 Baso # (Auto) 0.1 Abs Immat Gran (auto) 0.03 Absolute Neuts (auto) 5.4 Absolute Nucleated RBC 0.000 Nucleated RBC % (auto) 0.0 PT Whole Blood PT INR Whole Blood INR APTT Anion Gap 18 Estim Creat Clear Calc 60.2 Estimated GFR > 60 POC Glucose Random Glucose 123 H Calcium 9.3 Total Creatine Kinase Troponin I High Sens COVID-19 ([facility]) Negative COVID-19 Clin Com See Note Imaging Radiologist's Impressions: Impressions Head CT 06/25/20 23:37 IMPRESSION: No evidence for acute intracranial injury. The aforementioned was communicated to Dr. Davies at 0008 hours. Automated exposure control (Care Dose) Adjustment of the mA and/or kv according to patient size (this includes techniques or standardized protocols for targeted exams where dose is matched to indication / reason for exam; i.e. extremities or head). Chest X-Ray 06/26/20 00:05 IMPRESSION: No acute intrathoracic disease. Patchy opacity in the lingula that has been seen on prior chest radiograph and chest CT is unchanged Assessment and Plan (1) Cerebrovascular accident: Status: Acute (2) Multiple aneurysms of cerebral artery: Status: Acute This is a 75-year-old female with past medical history of CVA who presents to the hospital with slurred speech # expressive aphasia/dysarthria - patient had a recent CVA in March and at that time had expressive aphasia but reports that has worsened - will obtain MRI, continue aspirin, start Plavix, high-dose statin - neurology consulted - lipid battery - PT OT - Stroke Education # multiple aneurysms of cerebral artery - in March neurology did not recommend any intervention - continue to follow-up neurology # restless leg syndrome - continue ropinirole # hypertension - Stable - will allow for permissive hypertension DVT prophylaxis: SCDs given the fact the patient is now on dual antiplatelet
[2020-06-26] MEDS: Gabapentin 100 MG CAPSULE PO ×4 (07:30→22:11)
[2020-06-26] MEDS: Aspirin Enteric Coated 81 MG TABLET.DR PO (07:30)
[2020-06-26] MEDS: LORazepam 2 MG/ML VIAL 1 MG IVPUSH (10:04)
[2020-06-26] MEDS: Nicotine 14 MG PATCH.TD24 TRANSDERMA (11:25)
--- NOTE | 2020-06-26 13:31 | MHC.CM.PN ---
Lives at home w/ and adult son. Owns a walker and a cane. Still drives. Stairs to the basement where the laundry is but adult son does the laundry for her. Goal is home w/ and adult son; she does not want any services, says she is okay without any additional support and that it is not needed. Her PCP is not on file, but confirmed with her as Dr. Edwar Delgado. Family to transport. CM to follow.
--- NOTE | 2020-06-26 17:56 | P.CNNE_ITS ---
History of Present Illness Data of Consult Service Date: 06/26/20 Primary Care Provider: Unknown Physician HPI Reason for consult: Fullness in the head and speech hesitancy This is a 75-year-old woman who was admitted to [facility] in March with some speech problems and found to have embolic infarcts in the left hemisphere in the parietal territory and was put on aspirin. There was no occlusive disease seen and she was not noted to be in atrial fibrillation. She now presents with a sense of fullness in the head some headache dizziness and more stammering in her speech. She had follow-up CT scan in the ER which did not show any acute findings and old left parietal infarct and MRI today also shows no evidence of acute infarct. CTA did not show any significant occlusive disease. She feels there has been some improvement. Review of Systems Eyes: Eyes: Reports no additional eye complaints ENT: Reports system reviewed and no additional complaints, except as documented and Reports Normal hearing present Cardiovascular: Cardiovascular: Reports no additional cardiovascular complaints Respiratory: Respiratory: Reports no additional respiratory complaints Gastrointestinal: Gastrointestinal: Reports no additional gastrointestinal complaints Musculoskeletal: Musculoskeletal: Reports no additional musculoskeletal complaints Integumentary/Breasts: Skin/Breast: Reports system reviewed and no additional complaints, except as docu Neurologic: Reports as per HPI and Reports Normal hearing present Psychiatric: Psychiatric: Reports as per HPI Endocrine: Endocrine: Reports no additional endocrine complaints Hematologic/Lymphatic: Hematologic/Lymphatic: Reports no additional hematol ogic/lymphatic complaints Allergic/Immunologic: Allergic/Immunologic: Reports no additional allergic/immunologic complaints PMFSH Past Medical History Medical History Arthritis Cerebrovascular accident Embolic cerebral infarction Expressive aphasia HLD (hyperlipidemia) Hypertension Peripheral neuropathy Restless leg syndrome Transient cerebral ischemia Surgical History Surgical History History of partial hysterectomy Social History Social History Household Members: Spouse and Children Household Members Other:: Spouse and son Housing: House Do you presently have visiting nurse or other home services: No Alcohol intake: former Smoking Status: Current every day smoker Tobacco Type: Cigarette Packs Per Day: 0.5 Cigarettes Per Day: 10.0 Years Smoked: 60 Smoked in Last 30 Days: Yes Patient Interested in Nicotine Replacement: Yes Patient Given Instructions on How to Stop Smoking: Yes Date Education Initiated: 06/26/20 Use of substances other than those prescribed or required for medical reasons: No Currently Displaying Signs/Symptoms of Drug Intoxication Withdrawal: No Have you been hit, kicked, punched, or otherwise hurt by someone within the past year? If so, by whom?: No Do you feel safe in your current relationship?: Yes Is there a partner from a previous relationship who is making you feel unsafe now?: No Are you made to feel afraid or neglected: No Advance Directives: No Advance Directives Information Provided: No Advance Directives on File: No (Pt states wish to be DNR/DNI, will fill out paperwork) Do you have thoughts of harming others: None Do you have a plan to hurt others: No Plan Recently lost weight without trying: No service: No Meds Allergies Allergy/AdvReac Type Severity Reaction Status Date / Time ibuprofen [From MOTRIN] Allergy Mild GI UPSET Verified 06/25/20 23:36 Active Medications: Current Medications Generic Name Dose Route Start Last Admin Trade Name Freq PRN Reason Stop Dose Admin Acetaminophen 650 mg 06/26/20 03:00 Acetaminophen 325 Mg Tablet PO Q6H PRN Pain, Mild (Pain Scale 1-3) Al Hydroxide/Mg Hydroxide 15 ml 06/26/20 02:52 Magnesium Hydrox/Alum Hydrox 30 Ml Oral.Susp PO Q6H PRN Heartburn Aspirin 81 mg 06/26/20 09:00 06/26/20 07:30 Aspirin Enteric Coated 81 Mg Tablet. PO 81 mg DAILY DOMINIK Administration Atorvastatin Calcium 80 mg 06/26/20 21:00 Atorvastatin Calcium 80 Mg Tablet PO BEDTIME DOMINIK Clopidogrel Bisulfate 75 mg 06/26/20 09:00 06/26/20 07:30 Clopidogrel Bisulfate 75 Mg Tablet PO 75 mg DAILY DOMINIK Administration Docusate Sodium 100 mg 06/26/20 03:00 Docusate Sodium 100 Mg Capsule PO DAILY PRN Constipation Gabapentin 100 mg 06/26/20 09:00 06/26/20 17:22 Gabapentin 100 Mg Capsule PO 100 mg QID DOMINIK Administration Nicotine 14 mg 06/26/20 09:00 06/26/20 11:25 Nicotine 14 Mg Patch.Td24 TRANSDERMA 14 mg DAILY DOMINIK Administration Ondansetron HCl 4 mg 06/26/20 02:52 06/26/20 03:08 Ondansetron Hcl 4 Mg/2 Ml Vial IVPUSH 4 mg Q8H PRN Administration Nausea and Vomiting Ropinirole HCl 2 mg 06/26/20 21:00 Ropinirole Hcl 2 Mg Tablet PO BEDTIME [facility] Tiotropium [place] 1 puff 06/26/20 09:00 06/26/20 07:23 Tiotropium [place] 18 Mcg Cap.W.Dev INHALE Not Given DAILY [facility] Home Medications Medication Instructions Recorded Confirmed Last Taken Type gabapentin 100 mg PO QID 03/14/20 06/26/20 06/24/20 21:00 History metoprolol ta-hydrochlorothiaz 1 tab PO DAILY 03/14/20 03/14/20 06/25/20 18:00 History ropinirole 2 mg PO BEDTIME 03/14/20 06/26/20 06/24/20 21:00 History Physical Exam Vital Signs: Vital Signs: Last Vital Signs Temp 98.5 F 06/26/20 16:00 Pulse 87 06/26/20 16:00 Resp 18 06/26/20 16:00 BP 138/74 06/26/20 16:00 Pulse Ox 95 06/26/20 16:00 Body Mass Index 30.9 Const: General: cooperative, comfortable, no acute distress, well developed, alert and awake Nutritional Appearance: well nourished Orientation/consciousness: oriented to person, oriented to place and oriented to time Limitations: no limitations HENMT: Head: Yes normal to inspection, Yes normocephalic and Yes atraumatic Ears: hearing grossly normal bilaterally General nose exam: Normal external nose present Face and sinus: Yes normal facial exam Mouth: Normal oral and palatal mucosa present Eyes: General: appearance normal, both eyes and all related structures Visual [place]: normal visual [place] by confrontation Alignment and Position: alignment normal Periorbital: periorbital findings normal Eyelids: Yes eyelids normal Conjunctivae: conjunctivae normal Sclerae: sclerae normal Corneas: corneas normal Pupils: Equal, round and reactive pupils present and Pupil accommodation reflex normal EOM: EOMs intact bilaterally Direct Ophthalmoscopy: normal light reflex Neck: Neck: Yes normal visual inspection, Yes full ROM and Yes no meningeal signs Thyroid: Thyroid normal Carotids: normal carotid upstroke and bounding pulses Chest: Chest palpation & inspection: normal inspection of the chest Resp: Effort & Inspection: normal respiratory effort Auscultation: clear to auscultation bilaterally Cardio: Rate: regular rate Rhythm: regular rhythm Heart sounds: S1 normal heart sound present and S2 normal heart sound present Peripheral pulses: Peripheral pulses 2+ throughout GI: Inspection: Yes normal to inspection Percussion: Yes normal to percussion Auscultation: normal bowel sounds Rectal Exam - Female: deferred Back/Spine/Pelvis: Cervical Spine: normal cervical lordosis and cervical ROM normal Thoracic/Lumbar Spine: thoracic and lumbar spine normal to inspection Skin: General skin exam: no rashes or lesions noted Neuro: Other: She has a stammering speech then gets stuck on certain words and then comes out with loud stammering pronunciation of the word. There is no dysphagia or dysarthria although she feels a Ts have not been as clearly pronounced since the 1st stroke. She has no headache now no weakness on either side. General: oriented to person, oriented to place, oriented to time, gait normal, tone normal, moves all extremities, Normal light touch and pain sensation, no meningeal signs, no focal motor deficits, CN's II-XI intact bilaterally, normal sensation to monofilament and deep tendon reflexes 2+ bilaterally Cranial nerves: Yes CN's II-XII intact bilaterally, Yes Equal, round and reactive pupils present, Yes Bilaterally intact EOM present, Yes Nystagmus not present, Yes Normal facial strength present, Yes Midline tongue present, Yes Normal gag reflex present, Yes Symmetric palate elevation present, Yes Normal hearing present and Yes Ability to bilaterally rotate head present Cognition (Neuro): normal cognition Speech: Other speech findings present (Neuro) Gait exam (Neuro): Normal gait present Motor exam (neuro): 5/5 motor strength present throughout, Pronator motor function not present, no tremor noted, no asterixis, Motor fasciculations not present, Normal motor muscle tone present throughout and Motor abnormalities not present Sensory Exam: Bilaterally intact graphesthesia Deep tendon reflexes (DTR's): Right t riceps reflex intensity grade: 2+, Left triceps reflex intensity grade: 2+, Rt Biceps (C5, C6): 2+, Left biceps reflex intensity grade: 2+, Right brachioradialis reflex intensity grade: 2+, Left brachioradialis reflex intensity grade: 2+, Right patellar reflex intensity grade: 2+, Left patellar reflex intensity grade: 2+, Right ankle reflex intensity grade: 2+ and Left ankle reflex intensity grade: 2+ Plantar Reflex Responses: downgoing: right, left and bilateral Coordination: [id number] test normal, [id number]-[id number] test normal, tandem gait normal and Romberg test negative Pupils: Normal pupillary reactivity/response: bilateral Extrem: General: Yes normal to inspection, Yes normal exam except as noted and Yes no pedal edema Psych: Appearance: grossly normal Mental Status: mental status grossly normal Speech and movement: Normal speech and movement present and Clear speech present Affect: normal affect Attitude: cooperative Thought process: Normal thought process present Results Labs CBC & Chem 7: 06/26/20 03:15 06/26/20 03:15 Labs: Short CBC 06/25/20 06/26/20 Range/Units 23:51 03:15 WBC 8.0 8.6 (4.8-10.8) X10*3/uL Hgb 14.6 14.2 (12.0-16.0) g/dl Hct 43.3 42.9 (37-47) % Plt Count 360 329 (160-400) X10*3/uL BMP 06/25/20 06/26/20 23:51 03:15 Sodium 140 137 Potassium 3.5 3.5 Chloride 100 99 Carbon Dioxide 26 24 BUN 24 H D 22 H Creatinine 0.90 0.86 Calcium 9.1 D 9.3 Cardiac Enzymes 06/25/20 Range/Units 23:51 Total Creatine Kinase 74 (26-140) U/L Assessment and Plan (1) Multiple aneurysms of cerebral artery: Problem details: Stable known multiple aneurysms between 2.2 and 5.5 mm in both middle cerebral distribution Status: Acute A follow-up CT in 1 year (2) Cerebrovascular accident: Problem details: No evidence of acute stroke. Previous left parietal infarct in March 2020 Status: Acute Continue aspirin 81 mg and add Plavix 75 mg a day. No further intervention. She may be considered a candidate for LINQ insertion for monitoring for atrial fibrillation.
[2020-06-26] MEDS: Atorvastatin Calcium 80 MG TABLET PO (22:11)
[2020-06-26] MEDS: rOPINIRole HCL 2 MG TABLET PO (22:11)
[2020-06-26] MEDS: Magnesium Hydrox/Alum Hydrox 30 ML ORAL.SUSP 15 ML PO (22:19)
[2020-06-27] VITALS: BP 137/67; PULSE 83; RESP 20; TEMP 36.9; O2SAT 92
[2020-06-27 04:00] VITALS: BP 151/68; PULSE 81; RESP 20; TEMP 37.1; O2SAT 91
[2020-06-27 07:30] LABS: Cholesterol 219 mg/dL; HDL Cholesterol 42 mg/dL; LDL Cholesterol Calculated 154 mg/dl; Triglycerides 117 mg/dL
[2020-06-27 07:48] VITALS: BP 128/58; PULSE 80; RESP 18; TEMP 36.8; O2SAT 98
[2020-06-27] MEDS: Nicotine 14 MG PATCH.TD24 TRANSDERMA (10:32)
[2020-06-27] MEDS: Clopidogrel Bisulfate 75 MG TABLET PO (10:32)
[2020-06-27] MEDS: Aspirin Enteric Coated 81 MG TABLET.DR PO (10:32)
[2020-06-27] MEDS: Gabapentin 100 MG CAPSULE PO ×2 (10:32→14:11)
[2020-06-27 11:24] VITALS: BP 140/80; PULSE 82; RESP 18; TEMP 37; O2SAT 98
--- NOTE | 2020-06-27 12:30 | MHC.CM.PN ---
Patient has been medically cleared for dc to home today, no services. Last IMM addressed yesterday.
--- NOTE | 2020-06-27 12:31 | P.DS_ITS ---
DS: Providers Provider Date of Service: 06/27/20 Date of admission: 06/26/20 02:52 Primary care physician: Unknown Physician Consults: 06/26/20 03:00 Consult to Neurology Routine Consulting Provider: [facility] Reason for consultation: tia/stroke DS: Diagnosis Discharge Diagnosis (1) Multiple aneurysms of cerebral artery: Status: Acute Problem details: Stable known multiple aneurysms between 2.2 and 5.5 mm in both middle cerebral distribution (2) Cerebrovascular accident: Status: Acute Problem details: No evidence of acute stroke. Previous left parietal infarct in March 2020 DS: Medications Discharge Medications Home Medications: Home Medications Medication Instructions Recorded Confirmed gabapentin 100 mg PO QID 03/14/20 06/26/20 metoprolol ta-hydrochlorothiaz 1 tab PO DAILY 03/14/20 03/14/20 ropinirole 2 mg PO BEDTIME 03/14/20 06/26/20 Previous Rx's Medication Instructions Recorded tiotropium bromide 18 mcg capsule 1 cap INHALATION DAILY #30 cap 02/25/20 with inhalation device aspirin 81 mg PO DAILY #30 tab 03/16/20 clopidogrel 75 mg PO DAILY #30 tab 06/27/20 nicotine 14 mg TRANSDERMAL DAILY #28 ea 06/27/20 pravastatin [Pravachol] 40 mg PO BEDTIME #30 tab 06/27/20 DS: Summary Hospital Course Hospital Course: Hospital course 75-year-old woman was admitted to [facility] in March with some speech problems and found to have embolic infarcts in the left hemisphere in the parietal territory and was put on aspirin. There was no occlusive disease seen and she was not noted to be in atrial fibrillation. She now presented with a sense of fullness in the head some headache, dizziness and more stammering in her speech CT scan of brain in the ER did not show any acute findings and showed old left parietal infarct and MRI brain showed no evidence of acute infarct. CTA did not show any significant occlusive disease, patient feels she is back to her baseline,she was evaluated by Dr. Davis he recommend to add Plavix and continue aspirin. Patient also noted to have elevated LDL of 154, patient was previously on Zocor but stopped it due to muscle cramps, she has now been placed on from Pravachol 40 mg and recommended to have close outpatient follow-up with PCP with serial CPK and LFTs, Patient is also being discharged on nicotine patch since she continued to smoke half pack of cigarettes a day, strongly advised to completely abstain from smoking, will also recommend outpatient Cardiology follow-up for event recorder to rule out atrial fibrillation although during her last hospitalization in March and this hospitalization patient has not been noted to be in atrial fibrillation. Multiple aneurysms of cerebral artery between 2.2 and 5.5 mm in both middle cerebral distribution f/u ct in 1 year is rec by Neurology Restless leg syndrome continue Requip Hypertension continue home medication Time Spent with Patient Time attestation: Total time spent providing and/or coordinating discharge services: Discharge coordination time: Greater than 30 minutes Physical Exam Vital Signs: Vital Signs: Last Vital Signs Temp 98.6 F 06/27/20 11:24 Pulse 82 06/27/20 11:24 Resp 18 06/27/20 11:24 BP 140/80 H 06/27/20 11:24 Pulse Ox 98 06/27/20 11:24 Body Mass Index 30.9 General patient resting comfortably in no acute distress. Neck is supple no JVD. CVS regular rate rhythm, Respiratory lungs clear to auscultation, no respiratory distress, no wheeze, no rhonchi. Gastrointestinal abdomen soft, nontender, bowel sounds audible, no guarding , no rigidity. Extremities no clubbing cyanosis or edema. Neuro nonfocal patient moving all 4 extremity , speech clear takes time to respond. Skin no rash DS: Data Data Completed and Pending Labs on day of discharge: Laboratory Results - last 24 hr 06/27/20 05:52 Triglycerides 117 Cholesterol 219 LDL Cholesterol, Calc 154 HDL Cholesterol 42 Discharge Plan Discharge Patient Disposition: Home, Self-Care Referrals: Physician,Unknown [Primary Care Provider] - Discharge Medications: New nicotine 14 mg/24 hr Patch 24 Hour 14 mg transdermal DAILY Qty: 28 RF: 0 clopidogrel 75 mg Tablet 75 mg PO DAILY Qty: 30 RF: 0 pravastatin [Pravachol] 40 mg tablet 40 mg PO BEDTIME Qty: 30 RF: 0 Continued tiotropium bromide [Spiriva with HandiHaler] 18 mcg capsule, w/inhalation device 1 cap inhalation DAILY Qty: 30 RF: 3 metoprolol ta-hydrochlorothiaz 50-25 mg tablet 1 tab PO DAILY RF: 0 ropinirole 2 mg tablet 2 mg PO BEDTIME RF: 0 gabapentin 100 mg capsule 100 mg PO QID RF: 0 aspirin 81 mg Tablet,Delayed Release (Dr/Ec) 81 mg PO DAILY Qty: 30 RF: 0 Discharge Orders: Discharge Order (Routine); Ordered 06/27/20 Ordered By: Carlos A Vera Diet: low fat, low cholesterol Activity on Discharge: As tolerated Stand Alone Forms: Patient Portal Discharge page Care Plan Goals: Strongly advised to abstain from alcohol and to follow a low-cholesterol diet Health Concerns: CVA Plan of Treatment: Follow-up with primary care physician Dr. Delgado in 1 week, will need outpatient follow-up with Cardiology for event recorder to rule out underlying atrial fibrillation.
[2020-06-27] MEDS: Magnesium Hydrox/Alum Hydrox 30 ML ORAL.SUSP 15 ML PO (14:11)
== END 2020-06-27 15:30 | disposition home or self-care (01) | DRG 93 ==
LOC: HO.ED 06-26 01:21 → HO.IMC 06-26 03:41
PROVIDERS: Admitting Provider Internal Medicine; Emergency Provider Emergency Medicine; Visit Provider Hospitalist
DX: R47.01 Aphasia (principal); I67.1 Cerebral aneurysm, nonruptured; G25.81 Restless legs syndrome; E78.5 Hyperlipidemia, unspecified; R47.1 Dysarthria and anarthria; I10 Essential (primary) hypertension; F17.210 Nicotine dependence, cigarettes, uncomplicated; Z71.6 Tobacco abuse counseling; Z86.73 Personal history of transient ischemic attack (TIA), and cerebral infarction without residual deficits; Z20.822 Contact with and (suspected) exposure to COVID-19; Z79.02 Long term (current) use of antithrombotics/antiplatelets; Z79.82 Long term (current) use of aspirin; Z79.899 Other long term (current) drug therapy
CPT/HCPCS: 36415; 70450; 70496; 70498; 70551; 71045; 80048; 80061; 82550; 82947; 84484; 85025; 85610; 85730; 87635; 93005; 97163; 99219; 99285; J2060; J2405; Q9967

== ENCOUNTER → 2020-11-15 09:35 | Outpatient (BNVA) | payer MEDICARE, SELFPAY | PROVIDERS: Visit Provider Orthopaedic Surgery | DX: M65.332 Trigger finger, left middle finger (principal) | CPT/HCPCS: 99202 ==

== ENCOUNTER 2020-12-14 10:11 | Day surgery (SDC) | payer MEDICARE, SELFPAY ==
[2020-12-14 10:32] VITALS: BMI 27.4
[2020-12-14 10:41] VITALS: BP 129/51; PULSE 63; RESP 20; TEMP 36.4; O2SAT 94
--- NOTE | 2020-12-14 11:54 | MHC.SHP ---
Pre-Procedural Eval Section A Date of Service: 12/14/20 The patient is an INPATIENT: No Changes since office visit: No Cold of Flu in the past 2 weeks, No New Medical Problems, No Changes in Medication and No Patient answered all questions The History & Physical has been completed within 30 days and I have reviewed it.: Yes Section B Chief Complaint: trigger finger release Allergies: Allergies Allergy/AdvReac Type Severity Reaction Status Date / Time fentanyl Allergy Severe Anaphylaxis Verified 12/14/20 10:45 ibuprofen [From MOTRIN] Allergy Mild GI UPSET Verified 12/14/20 10:29 Plan I have reviewed the history and physical and performed a pertinent physical examination on my patient. No changes have occurred unless specified.
--- NOTE | 2020-12-14 11:55 | P.OP_ITS ---
Operative Note Operative Note Date of Service: 12/14/20 Narrative: Operative Note Preop diagnosis: 1. L middle finger recurrent Trigger finger Postop diagnosis: Same Procedure: 1. Left A1 clay release Surgeon: Jill Lepe MD Anesthesia: local block using 1% lidocaine with epinephrine Findings: No locking or catching after A1 clay release EBL: Less than 5 mL Tourniquet time: None Specimens: None Complications: None Disposition: Brought to recovery room in stable condition Plan: Follow-up for 7-10 days for wound check and suture removal Indications: The patient is 75 years old, with a recurrenceleft middle trigger finger that has been unresponsive to nonoperative management. The risks and benefits of operative treatment including but not limited to risk of damage to blood vessels, nerves, tendons, infection, persistent pain, persistent symptoms, recurrence or possible need for additional surgery were discussed with the patient and the patient wishes to proceed with surgery. Procedure: Once consent was obtained a local block was performed in the preop area using a combination of 1% lidocaine with epinephrine. The patient was then brought back to the operating suite and placed on the operative table in supine position. A tourniquet was applied to the proximal aspect of the left upper extremity and the limb was prepped and draped in a standard surgical fashion. Once assured that we had a good block, a 1.5 cm oblique incision was made centered over the A1 clay of the left middle finger . The incision was made through the skin to the subcutaneous tissues using a #15 blade. Careful dissection was made down to the level of the A1 clay using tenotomy scissors, with care being taken to protect the nearby neurovascular structures. A longitudinal incision was made in the A1 clay 1st using a #15 blade, then u sing tenotomy scissors under direct visualization. The A1 clay was noted to be thickened. Following our A1 clay release, we no longer saw any locking or catching of the digit with flexion and extension. Once satisfied with our A1 clay release the wound was copiously irrigated with normal saline and hemostasis was obtained with a brief period of local pressure. The skin edges were reapproximated with some 5.0 nylon suture material and a sterile dressing was applied. The patient appears to have tolerated the procedure well and with no complications. All digits were well vascularized at the conclusion of the case.
[2020-12-14 12:32] VITALS: BP 142/56; PULSE 61; RESP 18; TEMP 37; O2SAT 96
== END 2020-12-14 12:48 | disposition home or self-care (01) ==
PROVIDERS: PCP Internal Medicine; Visit Provider Orthopaedic Surgery
PROC: (CPT 26055; principal; 2020-12-14 11:50)
DX: M65.332 Trigger finger, left middle finger (principal); I63.40 Cerebral infarction due to embolism of unspecified cerebral artery; G62.9 Polyneuropathy, unspecified; E78.5 Hyperlipidemia, unspecified; F17.210 Nicotine dependence, cigarettes, uncomplicated; Z79.899 Other long term (current) drug therapy; Z88.8 Allergy status to other drugs, medicaments and biological substances
CPT/HCPCS: 26055

== ENCOUNTER → 2020-12-27 12:28 | Outpatient (BNVA) | payer MEDICARE, SELFPAY | PROVIDERS: PCP Internal Medicine; Visit Provider Orthopaedic Surgery | DX: Z48.89 Encounter for other specified surgical aftercare (principal); Z87.39 Personal history of other diseases of the musculoskeletal system and connective tissue | CPT/HCPCS: 99212 ==

== ENCOUNTER 2021-05-04 12:15 | Outpatient (REF) | payer MEDICARE, SELFPAY ==
[2021-05-04 14:07] LABS: MANUAL DIFF FLAG NO
[2021-05-04 14:11] LABS: Basophils Absolute Auto 0.1 X10*3/uL (0.0-0.2); Eosinophils Absolute Auto 0.1 X10*3/uL (0.0-0.4); Eosinophils Percent Auto 1.2 % (0-4); Hematocrit 44.4 % (37.0-47.0); Hemoglobin 14.5 g/dl (12.0-16.0); Imm Gran Abs Auto 0.02 X10*3/uL (0.00-0.03); Imm Gran Pct Auto 0.3 % (0.0-0.4); Lymphocytes Absolute Auto 2.8 X10*3/uL (1.2-4.9); Lymphocytes Percent Auto 41.6 % (20-40); Mean Corpuscular HGB Conc 32.7 g/dl (31.0-35.0); Mean Corpuscular Hemoglobin 30.5 pg (27.0-33.0); Mean Corpuscular Volume 93.5 fL (80.0-98.0); Mean Platelet Volume 10.1 fL (9.4-12.3); Monocytes Absolute Auto 0.5 X10*3/uL (0.1-1.2); Monocytes Percent Auto 7.1 % (2-11); Neutrophils Absolute Auto 3.3 x10*3/uL (2.0-8.3); Neutrophils Percent Auto 48.8 % (45-73); Platelet Count 357 X10*3/uL (160-400); Red Blood Count 4.75 X10*6/uL (4.20-5.50); Red Cell Distribution Width 14.6 % (11.0-16.0); White Blood Count 6.8 X10*3/uL (4.8-10.8)
[2021-05-04 14:31] LABS: Estimated Average Glucose 131 mg/dL; Hemoglobin A1c % 6.2 %
[2021-05-04 14:51] LABS: Alanine Aminotransferase 30 U/L (0-31); Albumin Level 4.3 g/dL (3.5-5.0); Alkaline Phosphatase 95 U/L (39-117); Anion Gap 14 (12-20); Aspartate Amino Transferase 25 U/L (5-31); Bilirubin Total 0.5 mg/dL (0.0-1.0); Blood Urea Nitrogen 20 mg/dL (9-16); Calcium 10.6 mg/dL (8.4-10.2); Carbon Dioxide 30 mmol/L (22-29); Chloride 101 mmol/L (96-108); Estimated Glomerular Filt Rate > 60; Glucose Random 110 mg/dL (60-115); Potassium 3.6 mmol/L (3.3-5.1); Sodium 141 mmol/L (135-145); Total Protein 7.6 g/dL (6.5-8.0)
== END 2021-05-04 12:16 | disposition home or self-care (01) ==
LOC: HO.10HDL 12:15
PROVIDERS: Visit Provider Internal Medicine
DX: J44.9 Chronic obstructive pulmonary disease, unspecified (principal); E11.9 Type 2 diabetes mellitus without complications; I10 Essential (primary) hypertension
CPT/HCPCS: 36415; 80053; 83036; 85025

== ENCOUNTER 2021-10-13 20:30 | Emergency (ER) | payer MEDICARE, SELFPAY ==
--- NOTE | ~2021-10-13 | XR_ITS ---
EXAMINATION: XR SHOULDER, RIGHT CLINICAL INFORMATION: Pain COMPARISON: None TECHNIQUE: Three views of the right shoulder. FINDINGS: No fracture or dislocation. Glenohumeral joint space is maintained. Minimal inferior glenoid rim marginal osteophyte formation. Acromiohumeral interval is maintained. No periarticular soft tissue calcification. AC joint is congruent and intact with subchondral sclerosis and mild osteophyte formation. Visualized right lung is grossly clear. Uncovertebral spurring and facet arthrosis noted in the lower cervical spine. XR/XR shoulder RT min 2V IMPRESSION: 1. No fracture or dislocation. 2. Mild acromioclavicular arthropathy.
[2021-10-13 21:10] VITALS: BP 170/71; PULSE 106; RESP 15; TEMP 36.6; O2SAT 96; BMI 29.2
--- NOTE | 2021-10-14 00:55 | ED_ITS ---
HPI - Extremity Problem General Chief complaint: Extremity Injury, Upper Stated complaint: right shoulder pain ? pinched nerve Time Seen by Provider: 10/14/21 00:55 Source: patient Mode of arrival: ambulatory Limitations: no limitations History of Present Illness HPI Narrative: Patient complaining of right shoulder pain right upper back pain for last 4- 5 days no known injury no rash no shortness of breath no chest pain Related Data Home Medications Medication Instructions Recorded Confirmed gabapentin 100 mg capsule 100 mg PO QID 03/14/20 06/26/20 metoprolol tartrate 50 1 tab PO DAILY 03/14/20 03/14/20 mg-hydrochlorothiazide 25 mg tablet ropinirole 2 mg tablet 2 mg PO BEDTIME 03/14/20 06/26/20 Previous Rx's Medication Instructions Recorded tiotropium bromide 18 mcg capsule 1 cap inhalation DAILY #30 caps 02/25/20 with inhalation device (Spiriva with HandiHaler) aspirin 81 mg tablet,delayed 81 mg PO DAILY #30 tabs 03/16/20 release clopidogrel 75 mg tablet 75 mg PO DAILY #30 tabs 06/27/20 nicotine 14 mg/24 hr daily 14 mg transdermal DAILY #28 ea 06/27/20 transdermal patch pravastatin 40 mg tablet 40 mg PO BEDTIME #30 tabs 06/27/20 (Pravachol) hydrocodone 5 mg-acetaminophen 325 1 tab PO Q4-6H PRN pain #5 tabs 12/14/20 mg tablet cephalexin 500 mg capsule 500 mg PO QID 10 days #40 caps 10/14/21 tramadol 50 mg tablet 50 mg PO Q6H PRN pain #20 tabs 10/14/21 Allergies Allergy/AdvReac Type Severity Reaction Status Date / Time fentanyl Allergy Severe Anaphylaxis Verified 12/14/20 10:45 ibuprofen [From MOTRIN] Allergy Mild GI UPSET Verified 12/14/20 10:29 Review of Systems 2 Review of Systems: Yes all other systems are reviewed and are negative PMFSH Past Medical History Medical History Arthritis Cerebrovascular accident Embolic cerebral infarction Expressive aphasia HLD (hyperlipidemia) Hypertension Peripheral neuropathy Restless leg syndrome Transient cerebral ischemia Surgical History History of partial hysterectomy Social History Social History Household Members: Spouse and Children Household Members Other:: Spouse and son Housing: House Do you presently have visiting nurse or other home services: No Alcohol intake: former Patient Tobacco Use Status: Current everyday Tobacco user Cigarette Packs Per Day: 0.5 Cigarettes Per Day: 10.0 Years Smoked: 60 Advance Directives: No service: No Physical Exam Vital Signs: Vital Signs: Last Vital Signs Temp 97.8 F 10/13/21 21:10 Pulse 82 10/14/21 01:38 Resp 16 10/14/21 01:38 BP 157/63 H 10/14/21 01:38 Pulse Ox 96 10/13/21 21:10 O2 Del Method 10/13/21 21:10 BMI result Body Mass Index 29.2 Appearance: Alert. Oriented X3. No acute distress. ENT: Pharynx normal. Oral Mucosa moist Neck: Normal inspection. Neck supple. CVS: Normal heart rate and rhythm. Pulses normal. Respiratory: No respiratory distress. Equal air entry bilateral, no wheezing/rales/rhonchi Abdomen: Soft and nontender. Skin: Skin warm and dry. Normal skin color. Normal skin turgor. Extremities: No lower extremity edema. No calf tenderness right shoulder limited abduction above 90 degrees painful external rotation clinically rotator tendinitis Neuro: Oriented X 3. No motor deficit. Back/Spine/Pelvis: Back/spine/pelvis image: 1. Superficial abrasion with yellow base tender to touch MDM - Extremity (Nontraumatic) MDM Narrative Medical decision making narrative: Patient's right shoulder tendinitis also noticed to have superficial abrasion at the back which she has pain no vascular lesion were seen will give her Keflex for infected abrasion, advised to follow-up with PCP Discharge Plan Discharge Clinical Impression: Abrasion of back with infection, Arthritis of shoulder Patient Disposition: Home, Self-Care Instructions: Abrasion (ED), Shoulder Pain (ED) Additional Instructions: Take antibiotic as advised for acute infected abrasion Pain medication for shoulder pain Follow with PCP if not better Prescriptions: New tramadol 50 mg tablet 50 mg PO Q6H PRN (Reason: pain) Qty: 20 0RF cephalexin 500 mg capsule 500 mg PO QID 10 Days Qty: 40 0RF No Action tiotropium bromide [Spiriva with HandiHaler] 18 mcg capsule, w/inhalation device 1 cap inhalation DAILY Qty: 30 3RF metoprolol ta-hydrochlorothiaz 50-25 mg tablet 1 tab PO DAILY ropinirole 2 mg tablet 2 mg PO BEDTIME gabapentin 100 mg capsule 100 mg PO QID aspirin 81 mg Tablet,Delayed Release (Dr/Ec) 81 mg PO DAILY Qty: 30 0RF hydrocodone-acetaminophen 5-325 mg tablet 1 tab PO Q4-6H PRN (Reason: pain) Qty: 5 0RF nicotine 14 mg/24 hr Patch 24 Hour 14 mg transdermal DAILY Qty: 28 0RF clopidogrel 75 mg Tablet 75 mg PO DAILY Qty: 30 0RF pravastatin [Pravachol] 40 mg tablet 40 mg PO BEDTIME Qty: 30 0RF Interventions: ED Discharge Assessment Last Done: 10/14/21 01:42 Discharge Date/Time: 10/14/21 01:42
[2021-10-14] MEDS: cephALEXin 500 MG CAPSULE PO (01:35)
[2021-10-14 01:38] VITALS: BP 157/63; PULSE 82; RESP 16
--- NOTE | 2021-10-14 01:40 | PC.NURSE ---
pt a&o. no sob or chest pain. Pt answering question appropriately. pt has a steady gait. Reviewed discharge instructions. Pt verbalized understanding. Pt discharge home .
== END 2021-10-14 01:42 | disposition home or self-care (01) ==
PROVIDERS: Emergency Provider Internal Medicine; PCP Internal Medicine
DX: S40.211A Abrasion of right shoulder, initial encounter (principal); X58.XXXA Exposure to other specified factors, initial encounter; M19.011 Primary osteoarthritis, right shoulder; E78.5 Hyperlipidemia, unspecified; I10 Essential (primary) hypertension; F17.210 Nicotine dependence, cigarettes, uncomplicated; Z79.82 Long term (current) use of aspirin; Z79.02 Long term (current) use of antithrombotics/antiplatelets; Y93.9 Activity, unspecified; Y92.9 Unspecified place or not applicable; Y99.9 Unspecified external cause status
CPT/HCPCS: 73030; 99283; 99284

== ENCOUNTER 2021-10-26 10:36 | Emergency (ER) | payer MEDICARE, SELFPAY ==
--- NOTE | ~2021-10-26 | XR_ITS ---
EXAMINATION: XR SHOULDER, RIGHT CLINICAL INFORMATION: Shoulder pain COMPARISON: X-ray 10/13/2021 TECHNIQUE: AP external rotation, Grashey, scapular Y, and axillary views of the right shoulder. FINDINGS: Osteopenia. No evidence of fracture or dislocation. Glenohumeral joint space is maintained. Mild inferior glenoid rim marginal spur. Mild to moderate acromioclavicular arthritis. Right clavicle is intact. No abnormal soft tissue calcification. Degeneration in the cervical spine. No suspicious findings in the visualized right lung. XR/XR shoulder RT min 2V IMPRESSION: -No radiographic evidence of acute fracture or dislocation. -Osteopenia. -Mild glenohumeral joint arthritis. Mild to moderate acromioclavicular arthritis.
[2021-10-26 11:13] VITALS: BP 188/79; PULSE 100; RESP 16; TEMP 36.7; O2SAT 94; BMI 29.2
--- NOTE | 2021-10-26 14:11 | ED.EXTPRO ---
HPI - Extremity Problem General Chief complaint: Extremity Injury, Upper Stated complaint: r shoulder and arm pain Time Seen by Provider: 10/26/21 13:43 Source: patient Mode of arrival: ambulatory Limitations: no limitations History of Present Illness HPI Narrative: Patient presents emergency department for evaluation of ongoing right shoulder pain/right upper back pain. She states she was seen in the emergency department 2 weeks ago she was having 5 days of pain at that time with no known injury, she had an x-ray obtained which revealed arthritic changes, was diagnosed with pain secondary to arthritis given a prescription for tramadol, as well as a noted abrasion on the back for which she was given a prescription for cephalexin. At this time she states that the tramadol was helping her pain, however she has since ran out. She states that she has a follow-up appointment with her primary care provider on 10 of November. Denies any new injury to the shoulder, denies numbness or tingling to the arm/hand, denies any weakness. Related Data Home Medications Medication Instructions Recorded Confirmed gabapentin 100 mg capsule 100 mg PO QID 03/14/20 06/26/20 metoprolol tartrate 50 1 tab PO DAILY 03/14/20 03/14/20 mg-hydrochlorothiazide 25 mg tablet ropinirole 2 mg tablet 2 mg PO BEDTIME 03/14/20 06/26/20 Previous Rx's Medication Instructions Recorded tiotropium bromide 18 mcg capsule 1 cap inhalation DAILY #30 caps 02/25/20 with inhalation device (Spiriva with HandiHaler) aspirin 81 mg tablet,delayed 81 mg PO DAILY #30 tabs 03/16/20 release clopidogrel 75 mg tablet 75 mg PO DAILY #30 tabs 06/27/20 nicotine 14 mg/24 hr daily 14 mg transdermal DAILY #28 ea 06/27/20 transdermal patch pravastatin 40 mg tablet 40 mg PO BEDTIME #30 tabs 06/27/20 (Pravachol) hydrocodone 5 mg-acetaminophen 325 1 tab PO Q4-6H PRN pain #5 tabs 12/14/20 mg tablet cephalexin 500 mg capsule 500 mg PO QID 10 days #40 caps 10/14/21 tramadol 50 mg tablet 50 mg PO Q6H PRN pain #20 tabs 10/14/21 tramadol 50 mg tablet 50 mg PO Q8H PRN pain #14 tabs 10/26/21 Allergies Allergy/AdvReac Type Severity Reaction Status Date / Time fentanyl Allergy Severe Anaphylaxis Verified 10/26/21 11:13 ibuprofen [From MOTRIN] Allergy Mild GI UPSET Verified 10/26/21 11:13 Review of Systems Review of Systems: Musculoskeletal: Positive shoulder pain as noted in HPI Yes all other systems are reviewed and are negative [facility] Past Medical History Attestation statement: The following information was validated with the patient. Source: old records reviewed Medical History Arthritis Cerebrovascular accident Embolic cerebral infarction Expressive aphasia HLD (hyperlipidemia) Hypertension Peripheral neuropathy Restless leg syndrome Transient cerebral ischemia Surgical History History of partial hysterectomy Social History Social History Household Members: Spouse and Children Household Members Other:: Spouse and son Housing: House Do you presently have visiting nurse or other home services: No Alcohol intake: former Patient Tobacco Use Status: Current everyday Tobacco user Cigarette Packs Per Day: 0.5 Cigarettes Per Day: 10.0 Years Smoked: 60 Advance Directives: Yes Advance Directives Information Provided: Yes Advance Directives on File: No service: No Physical Exam Vital Signs: Vital Signs: Last Vital Signs Temp 98.0 F 10/26/21 11:13 Pulse 100 10/26/21 11:13 Resp 16 10/26/21 11:13 BP 188/79 H 10/26/21 11:13 Pulse Ox 94 10/26/21 11:13 O2 Del Method 10/26/21 11:13 BMI result Body Mass Index 29.2 Appearance: Alert.?Oriented to person, place and time. No acute distress.?Normal affect. Eyes: Pupils equal, round and reactive to light.? ENT: Pharynx normal.?? Neck: Normal inspection.? Neck supple.??No midline cervical spine tenderness, step-offs, deformities CVS: Heart sounds normal. Normal heart rate and rhythm.? Pulses normal.?? Respiratory: No respiratory distress.? Lung sounds clear to auscultation bilaterally?? Abdomen: Soft and non-tender. Normoactive bowel sounds.?? Skin: Skin warm and dry.? Normal skin color.? Extremities: No lower extremity edema.? Full AROM to the right shoulder. Neuro: Moves all extremities spontaneously. Sensation intact bilaterally. No motor deficits Ambulates with normal steady gait. Course Course Course Narrative: Patient is a 76-year-old female with a past medical history of arthritis, CVA, hyperlipidemia, hypertension, peripheral neuropathy presenting to emergency department for evaluation of persistent right shoulder pain. Previously sent home with a prescription for tramadol secondary to right redness of the shoulder. This did help, but she has ran out of the medication and she continues to have pain, is benign able to follow-up with her primary care provider. Based on her physical exam she is able to abduct the right shoulder to 180 degrees, she does have painful external rotation, concerning for rotator cuff tendinitis. A repeat x-ray obtained today while in triage reveals no acute fracture or dislocation, mild glenohumeral joint arthritis and [id number] acromioclavicular arthritis. Discussed these findings with patient. Advised gentle stretching and [id number] exercises, will provide an additional course of tramadol, advised to follow-up with her primary care provider she may need referral for physical therapy or further evaluation by orthopedics. Patient verbalized understandings of these findings, she was discharged home in stable condition and ambulatory at that time. MDM - Extremity (Nontraumatic) Medical Records Attestation: I reviewed the patient's medical records. Imaging Data XR shoulder: Radiologist's impression: XR/XR shoulder RT min 2V IMPRESSION: -No radiographic evidence of acute fracture or dislocation. -Osteopenia. -Mild glenohumeral joint arthritis. Mild to moderate acromioclavicular arthritis. Discharge Plan Discharge Clinical Impression: Arthritis of shoulder region, right Patient Disposition: Home, Self-Care Instructions: Osteoarthritis (ED) Additional Instructions: As we discussed the x-ray reveals that you have arthritis within your shoulder. You were trialed on a course of tramadol previously which you reported did help with your pain. As we discussed, I do recommend gentle stretching in continuous movement of the shoulder to prevent any stiffening/freezing of the shoulder. You will be given the short extended course of tramadol as you have trialed other medications without significant improvement. It is important you follow up with your primary care provider with any continued or worsening symptoms. Prescriptions: New tramadol 50 mg tablet 50 mg PO Q8H PRN (Reason: pain) Qty: 14 0RF No Action tiotropium bromide [Spiriva with HandiHaler] 18 mcg capsule, w/inhalation device 1 cap inhalation DAILY Qty: 30 3RF metoprolol ta-hydrochlorothiaz 50-25 mg tablet 1 tab PO DAILY ropinirole 2 mg tablet 2 mg PO BEDTIME gabapentin 100 mg capsule 100 mg PO QID aspirin 81 mg Tablet,Delayed Release (Dr/Ec) 81 mg PO DAILY Qty: 30 0RF hydrocodone-acetaminophen 5-325 mg tablet 1 tab PO Q4-6H PRN (Reason: pain) Qty: 5 0RF nicotine 14 mg/24 hr Patch 24 Hour 14 mg transdermal DAILY Qty: 28 0RF clopidogrel 75 mg Tablet 75 mg PO DAILY Qty: 30 0RF pravastatin [Pravachol] 40 mg tablet 40 mg PO BEDTIME Qty: 30 0RF tramadol 50 mg tablet 50 mg PO Q6H PRN (Reason: pain) Qty: 20 0RF cephalexin 500 mg capsule 500 mg PO QID 10 Days Qty: 40 0RF Interventions: ED Discharge Assessment Last Done: 10/26/21 14:24 Discharge Date/Time: 10/26/21 14:24
== END 2021-10-26 14:24 | disposition home or self-care (01) ==
PROVIDERS: Emergency Provider Emergency Medicine; PCP Internal Medicine
DX: M19.011 Primary osteoarthritis, right shoulder (principal); M25.511 Pain in right shoulder; I10 Essential (primary) hypertension; F17.210 Nicotine dependence, cigarettes, uncomplicated
CPT/HCPCS: 73030; 99282; 99283

== ENCOUNTER 2021-11-13 19:53 | Emergency (ER) | payer MEDICARE, SELFPAY ==
[2021-11-13 20:57] VITALS: BP 148/70; PULSE 102; RESP 16; TEMP 36.6; O2SAT 95; BMI 29.2
[2021-11-13 21:26] LABS: Basophils Absolute Auto 0.1 X10*3/uL (0.0-0.2); Basophils Percent Auto 0.7 % (0-2); Eosinophils Absolute Auto 0.1 X10*3/uL (0.0-0.4); Eosinophils Percent Auto 0.7 % (0-4); Hematocrit 38.8 % (37.0-47.0); Hemoglobin 12.4 g/dl (12.0-16.0); Imm Gran Abs Auto 0.05 X10*3/uL (0.00-0.03); Imm Gran Pct Auto 0.5 % (0.0-0.4); Lymphocytes Absolute Auto 2.2 X10*3/uL (1.2-4.9); MANUAL DIFF FLAG NO; Mean Corpuscular Hemoglobin 28.2 pg (27.0-33.0); Mean Corpuscular Volume 88.2 fL (80.0-98.0); Mean Platelet Volume 9.7 fL (9.4-12.3); Monocytes Absolute Auto 0.8 X10*3/uL (0.1-1.2); Neutrophils Absolute Auto 7.8 x10*3/uL (2.0-8.3); Neutrophils Percent Auto 71.1 % (45-73); Platelet Count 530 X10*3/uL (160-400); Red Cell Distribution Width 15.6 % (11.0-16.0); White Blood Count 10.9 X10*3/uL (4.8-10.8)
[2021-11-13 21:42] LABS: Anion Gap 18 (12-20); Blood Urea Nitrogen 16 mg/dL (9-16); Calcium 10.5 mg/dL (8.4-10.2); Carbon Dioxide 24 mmol/L (22-29); Chloride 102 mmol/L (96-108); Creatinine Clr Calc Pharmacy 50.8; Estimated Glomerular Filt Rate > 60; Glucose Random 134 mg/dL (60-115); Potassium 4.2 mmol/L (3.3-5.1); Sodium 140 mmol/L (135-145)
[2021-11-14 02:00] VITALS: BP 155/84; PULSE 107; RESP 20; O2SAT 95
--- NOTE | 2021-11-14 02:16 | ED_ITS ---
HPI - General Adult General Chief complaint: General Medical Stated complaint: right arm pain Time Seen by Provider: 11/14/21 02:06 Source: patient Mode of arrival: ambulatory Limitations: no limitations History of Present Illness HPI narrative: Patient comes to the emergency room complaining of suprascapular pain on the right side. Patient states that for the last 3 days, she has been having pain whenever she lies down. Patient denies chest pain or shortness of breath, no shoulder pain. Patient denies any drainage from this lump in her back. Related Data Home Medications Medication Instructions Recorded Confirmed gabapentin 100 mg capsule 100 mg PO QID 03/14/20 06/26/20 metoprolol tartrate 50 1 tab PO DAILY 03/14/20 03/14/20 mg-hydrochlorothiazide 25 mg tablet ropinirole 2 mg tablet 2 mg PO BEDTIME 03/14/20 06/26/20 Previous Rx's Medication Instructions Recorded tiotropium bromide 18 mcg capsule 1 cap inhalation DAILY #30 caps 02/25/20 with inhalation device (Spiriva with HandiHaler) aspirin 81 mg tablet,delayed 81 mg PO DAILY #30 tabs 03/16/20 release clopidogrel 75 mg tablet 75 mg PO DAILY #30 tabs 06/27/20 nicotine 14 mg/24 hr daily 14 mg transdermal DAILY #28 ea 06/27/20 transdermal patch pravastatin 40 mg tablet 40 mg PO BEDTIME #30 tabs 06/27/20 (Pravachol) hydrocodone 5 mg-acetaminophen 325 1 tab PO Q4-6H PRN pain #5 tabs 12/14/20 mg tablet cephalexin 500 mg capsule 500 mg PO QID 10 days #40 caps 10/14/21 tramadol 50 mg tablet 50 mg PO Q6H PRN pain #20 tabs 10/14/21 tramadol 50 mg tablet 50 mg PO Q8H PRN pain #14 tabs 10/26/21 diazepam 2 mg tablet (Valium) 2 mg PO BEDTIME PRN muscle spasm 11/14/21 #5 tabs hydrocodone 2.5 mg-acetaminophen 1 tab PO Q4-6H PRN pain #10 tabs 11/14/21 325 mg tablet ondansetron 4 mg disintegrating 4 mg PO Q6H PRN nausea and 11/14/21 tablet vomiting #10 tabs Allergies Allergy/AdvReac Type Severity Reaction Status Date / Time fentanyl Allergy Severe Anaphylaxis Verified 10/26/21 11:13 ibuprofen [From MOTRIN] Allergy Mild GI UPSET Verified 10/26/21 11:13 morphine Allergy Nausea and Verified 11/14/21 02:15 Vomiting Review of Systems Review of Systems: Constitutional : No Weight loss, No Fever, No Chills, No Night Sweats, No Fatigue, No Malaise ENT/Mouth : No Hearing loss, No Ear Pain, No Nasal Congestion, No Sinus Pain, No Hoarseness, No sore throat, No Rhinorrhea, No Swallowing Difficulty Eyes: No Eye Pain, No Swelling, No Redness, No Foreign Body, No Discharge, No Vision Changes Cardiovascular : No Chest Pain, No SOB, No Dyspnea on Exertion, No Orthopnea, No Edema, No Palpitations Respiratory : No Cough, No Sputum, No Wheezing, No Smoke Exposure, No Dyspnea Gastrointestinal : No Nausea, No Vomiting, No Diarrhea, No Constipation, No abdominal Pain, No Hematochezia, No Melena Genitourinary : no irregular bleeding, No Dysuria, No Urinary Frequency, No Hematuria, No Urinary Incontinence, No Urgency, No Flank Pain, No Urinary Flow Changes, No Hesitancy Musculoskeletal : No joint pain, No Myalgias, No Joint Swelling Skin : No Skin Lesions, No rash, complaining of a lump in the right scapular area worse with laying down and putting pressure over the Neuro : No Weakness, No Numbness, No Paresthesias, No Loss of Consciousness, No Dizziness, No Headache Psych : No Anxiety/Panic, No Depression, No SI/HI/AH/VH, No Social Issues, Heme/Lymph: No Bruising, No Bleeding,No Lymphadenopathy Endocrine : No Polyuria, No Polydipsia, No Temperature Intolerance [facility] Past Medical History Medical History Arthritis Cerebrovascular accident Embolic cerebral infarction Expressive aphasia HLD (hyperlipidemia) Hypertension Peripheral neuropathy Restless leg syndrome Transient cerebral ischemia Surgical History History of partial hysterectomy Social History Social History Household Members: Spouse and Children Household Members Other:: Spouse and son Housing: House Do you presently have visiting nurse or other home services: No Alcohol intake: former Patient Tobacco Use Status: Current everyday Tobacco user Cigarette Packs Per Day: 0.5 Cigarettes Per Day: 10.0 Years Smoked: 60 Smoked in Last 30 Days: Yes Use of substances other than those prescribed or required for medical reasons: No Advance Directives: Yes Advance Directives Information Provided: No Advance Directives on File: No service: No Physical Exam ED Vital Signs: Vital Signs - 24 hr 11/13/21 20:57 11/14/21 02:00 Temperature 97.9 F Pulse Rate 102 H 107 H Respiratory Rate 16 20 Blood Pressure 148/70 H 155/84 H Pulse Oximetry 95 95 Oxygen Delivery Method Room Air Room Air BMI result Body Mass Index 29.2 Const Other: Appearance: Alert. Oriented X3. No acute distress. Eyes: Pupils equal, round and reactive to light. ENT: Pharynx normal. Neck: Normal inspection. Neck supple. No lymph nodes noted. No crepitus CVS: Normal heart rate and rhythm. Pulses normal. Normal S1 and S2 Respiratory: No respiratory distress. Breath sounds normal. No Wheezing. No rales Abdomen: Soft and nontender. No rigidity. No distention. Skin: Skin warm and dry. Normal skin color. Normal skin turgor. There is a 1 cm x 1 cm cyst, possible lipoma over the scapular area on the right side. Not erythematous, no additional warmth to palpation, no drainage. Extremities: No lower extremity edema. No Lacerations. No Rash pain to palpation over the suprascapular area, mild palpable muscle spasms Neuro: Oriented X 3. No motor deficit. No sensory deficit. Moving all extremities. No slurred speech. CN 2 through 12 grossly intact Psych: calm, cooperative, normal affect Course Course Course Narrative: Patient states that she has been vomiting recently. No abdominal pain, no diarrhea. Patient thinks it is secondary to tramadol. At this time, patient has no nausea or vomiting. I discussed the physical exam with the patient, if patient's cyst in the back keeps growing and hurting, she may need to be referred to surgery for excision. Abscess not suspected. Patient receiving p.o. Valium to help with the muscle spasms. Medical Decision Making Lab Data Result diagrams: 11/13/21 21:02 11/13/21 21:02 Labs: Lab Results 11/13/21 11/13/21 Range/Units 21:02 21:02 WBC 10.9 H (4.8-10.8) X10*3/uL RBC 4.40 (4.20-5.50) X10*6/uL Hgb 12.4 (12.0-16.0) g/dl Hct 38.8 (37.0-47.0) % MCV 88.2 (80.0-98.0) fL MCH 28.2 (27.0-33.0) pg MCHC 32.0 (31.0-35.0) g/dl RDW 15.6 (11.0-16.0) % Plt Count 530 H D (160-400) X10*3/uL MPV 9.7 (9.4-12.3) fL Immature Gran % (Auto) 0.5 H (0.0-0.4) % Neut % (Auto) 71.1 (45-73) % Lymph % (Auto) 20.0 (20-40) % [place] % (Auto) 7.0 (2-11) % Eos % (Auto) 0.7 (0-4) % Baso % (Auto) 0.7 (0-2) % Lymph # (Auto) 2.2 (1.2-4.9) X10*3/uL [place] # (Auto) 0.8 (0.1-1.2) X10*3/uL Eos # (Auto) 0.1 (0.0-0.4) X10*3/uL Baso # (Auto) 0.1 (0.0-0.2) X10*3/uL Abs Immat Gran (auto) 0.05 H (0.00-0.03) X10*3/uL Absolute Neuts (auto) 7.8 (2.0-8.3) x10*3/uL Absolute Nucleated RBC 0.000 (0.0-0.012) X10*3/uL Nucleated RBC % (auto) 0.0 (0.0-0.2) /100WBC Sodium 140 (135-145) mmol/L Potassium 4.2 (3.3-5.1) mmol/L Chloride 102 (96-108) mmol/L Carbon Dioxide 24 (22-29) mmol/L Anion Gap 18 (12-20) BUN 16 (9-16) mg/dL Creatinine 0.87 (0.5-1.4) mg/dL Estim Creat Clear Calc 50.8 Estimated GFR > 60 Random Glucose 134 H (60-115) mg/dL Calcium 10.5 H (8.4-10.2) mg/dL Discharge Plan Discharge Clinical Impression: Back skin lesion, Musculoskeletal back pain Patient Disposition: Home, Self-Care Instructions: Musculoskeletal Pain (ED) Additional Instructions: Please follow-up with your primary care physician tomorrow. If you have any worsening or new symptoms, please return to the emergency room or call 911 Prescriptions: New ondansetron 4 mg tablet,disintegrating 4 mg PO Q6H PRN (Reason: nausea and vomiting) Qty: 10 0RF diazepam [Valium] 2 mg tablet 2 mg PO BEDTIME PRN (Reason: muscle spasm) Qty: 5 0RF hydrocodone-acetaminophen 2.5-325 mg tablet 1 tab PO Q4-6H PRN (Reason: pain) Qty: 10 0RF Rx Instructions: Partial Fill upon patient request. No Action tiotropium bromide [Spiriva with HandiHaler] 18 mcg capsule, w/inhalation device 1 cap inhalation DAILY Qty: 30 3RF metoprolol ta-hydrochlorothiaz 50-25 mg tablet 1 tab PO DAILY ropinirole 2 mg tablet 2 mg PO BEDTIME gabapentin 100 mg capsule 100 mg PO QID aspirin 81 mg Tablet,Delayed Release (Dr/Ec) 81 mg PO DAILY Qty: 30 0RF hydrocodone-acetaminophen 5-325 mg tablet 1 tab PO Q4-6H PRN (Reason: pain) Qty: 5 0RF nicotine 14 mg/24 hr Patch 24 Hour 14 mg transdermal DAILY Qty: 28 0RF clopidogrel 75 mg Tablet 75 mg PO DAILY Qty: 30 0RF pravastatin [Pravachol] 40 mg tablet 40 mg PO BEDTIME Qty: 30 0RF tramadol 50 mg tablet 50 mg PO Q8H PRN (Reason: pain) Qty: 14 0RF tramadol 50 mg tablet 50 mg PO Q6H PRN (Reason: pain) Qty: 20 0RF cephalexin 500 mg capsule 500 mg PO QID 10 Days Qty: 40 0RF
[2021-11-14] MEDS: Ondansetron ODT 4 MG TAB.RAPDIS TRANSLINGU (02:35)
[2021-11-14] MEDS: diazePAM 2 MG TABLET PO (02:35)
== END 2021-11-14 02:40 | disposition home or self-care (01) ==
PROVIDERS: Emergency Provider Emergency Medicine; PCP Internal Medicine
DX: L98.9 Disorder of the skin and subcutaneous tissue, unspecified (principal); M62.830 Muscle spasm of back; I10 Essential (primary) hypertension; E78.5 Hyperlipidemia, unspecified; F17.210 Nicotine dependence, cigarettes, uncomplicated; Z86.73 Personal history of transient ischemic attack (TIA), and cerebral infarction without residual deficits; Z79.82 Long term (current) use of aspirin; Z79.02 Long term (current) use of antithrombotics/antiplatelets; Z79.899 Other long term (current) drug therapy
CPT/HCPCS: 36415; 80048; 85025; 99283; 99284

== ENCOUNTER 2021-11-18 17:19 | Emergency (ER) | payer MEDICARE, SELFPAY ==
[2021-11-18] VITALS (7 sets, daily range): BP systolic 103–148; BP diastolic 56–61; PULSE 95–111; RESP 16–27; TEMP 36.6; O2SAT 92–96; BMI 27.3
--- NOTE | ~2021-11-18 | XR_ITS ---
EXAMINATION: XR CHEST CLINICAL INFORMATION: Dyspnea. COMPARISON: Chest radiograph dated 06/26/2020; CT chest dated 01/19/2020. TECHNIQUE: Frontal view of the chest was obtained. FINDINGS: The heart, great vessels, pulmonary vasculature and mediastinum are stable. There is atherosclerotic calcification of the aortic knob. In the mid to lower left lung, there is a 2.2 cm nodule with adjacent linear atelectasis. There is further linear atelectasis of the right suprahilar region and the mid right lung. No pleural effusion or pneumothorax is seen. There is no acute osseous abnormality. XR/XR chest 1V IMPRESSION: 1. A 2.2 cm nodule is seen in the mid to lower left lung. An ill-defined nodular opacity was noted at this location on the prior CT examination of 01/20/2020. Recommend repeat CT evaluation at this time. 2. There is bilateral linear scar/subsegmental atelectasis, as detailed.
--- NOTE | ~2021-11-18 | MR_ITS ---
MR BRAIN WITHOUT AND WITH CONTRAST CLINICAL INFORMATION: Brain lesion. Right-sided weakness for 3 weeks. COMPARISON: Head CT 11/18/2021. TECHNIQUE: Multiplanar, multisequence MRI of the brain was obtained before and after the intravenous administration of 6.5 mL of Gadavist. 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 Enhancing hemorrhagic lesion within the left frontal lobe and enhancing lesions within the cerebellar hemispheres bilaterally with surrounding edema, most concerning for metastatic lesions. The lesion seen on the previous CT study corresponds to a 2 cm hemorrhagic lesion within the anterior left parasagittal frontal lobe and is the largest lesion identified. The largest lesion within the posterior fossa is located within the lateral left cerebellum, measuring 1 cm in size and there are a few smaller enhancing lesions within the right cerebellum. There is abnormal thickening of the infundibular stalk which could be secondary to metastatic disease, lymphocytic hypophysitis, or other infundibular pathology. A 6 mm enhancing extra-axial nodule along the anterior right frontal convexity on image 104 of series 9 may reflect a meningioma or a metastatic lesion. Punctate foci of restricted diffusion within the high right paracentral lobule, the left caudate, the left occipital lobe likely reflect small acute infarcts. 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 There is no hydrocephalus, extra-axial surface collection, or herniation. The major flow voids at the skull base are preserved. 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 The midline structures are normal. The cerebellar tonsils are normally positioned. The cerebellum and brainstem are normal. The craniocervical junction is normal. There is heterogeneously enhancing bone marrow replacement throughout the bony calvarium and the partially imaged cervical spine that is most concerning for osseous metastatic disease. The largest calvarial lesion within the right parietal bone measures up to 2 cm in size and is associated with adjacent dural enhancement. There is a partially imaged 2 cm mass within the right parotid gland at the junction of the superficial and deep right parotid lobes that can be further assessed with PET. MR/MR head/brain wo/w con IMPRESSION: - There is intracranial metastatic disease. Enhancing hemorrhagic lesion within the left frontal lobe and enhancing lesions within the cerebellar hemispheres bilaterally with surrounding edema, most concerning for metastatic lesions. The lesion seen on the previous CT study corresponds to a 2 cm hemorrhagic lesion within the anterior left parasagittal frontal lobe and is the largest lesion identified. The largest lesion within the posterior fossa is located within the lateral left cerebellum, measuring 1 cm in size and there are a few smaller enhancing lesions within the right cerebellum. No midline shift nor other significant mass effect. - Punctate foci of restricted diffusion within the high right paracentral lobule, the left caudate, the left occipital lobe likely reflect small acute infarcts. - There is heterogeneously enhancing bone marrow replacement throughout the bony calvarium and the partially imaged cervical spine that is most concerning for osseous metastatic disease. The largest calvarial lesion within the right parietal bone measures up to 2 cm in size and is associated with adjacent dural enhancement. - There is abnormal thickening of the infundibular stalk which could be secondary to metastatic disease, lymphocytic hypophysitis, or other infundibular pathology. - A 6 mm enhancing extra-axial nodule along the anterior right frontal convexity on image 104 of series 9 may reflect a meningioma or a metastatic lesion. - There is a partially imaged 2 cm mass within the right parotid gland at the junction of the superficial and deep right parotid lobes that can be further assessed with PET. 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
--- NOTE | ~2021-11-18 | CT_ITS ---
CT HEAD WITHOUT IV CONTRAST INDICATION: Right-sided weakness for 3 weeks. COMPARISON: Brain MRI 06/26/2020. Head CT 06/25/2020. TECHNIQUE: Multidetector CT acquisitions of the head was obtained without IV contrast. This CT examination was performed using dose optimization techniques as appropriate, variously including the following: *Automated exposure control *Adjustment of mA and/or kV according to patient size (this includes techniques or standardized protocols for targeted exams where dose is matched to indication/reason for exam; i.e. extremities or head) *Use of iterative reconstruction technique FINDINGS: This study is very limited by motion artifact. There is a 2 cm mildly expansile mixed high and low density lesion within the anterior left parasagittal frontal lobe on image 43 of series 7 with surrounding white matter hypoattenuation. The high density material could reflect acute blood products associated with a lesion versus a mixed density hematoma. MRI of the brain with and without IV contrast recommended for further assessment. There is global cerebral volume loss and there is chronic microangiopathy. There is no hydrocephalus, extra-axial surface collection, midline shift, or other herniation pattern. [place] to white matter differentiation is diffusely maintained without evidence of an evolved acute territorial infarct. The basilar cisterns are preserved. No significant soft tissue abnormality. There are lytic lesions within the left and right parietal calvarium not seen on the previous head CT study, concerning for metastatic foci for which a whole-body bone scan or PET scan would be helpful in further assessment. CT/CT head/brain wo con IMPRESSION: This study is very limited by motion artifact. There is a 2 cm mildly expansile mixed high and low density lesion within the anterior left parasagittal frontal lobe on image 43 of series 7 with surrounding white matter hypoattenuation. The high density material could reflect acute blood products associated with a metastatic lesion versus a mixed density hematoma versus alternative pathology. MRI of the brain with and without IV contrast recommended for further assessment. There are lytic lesions within the left and right parietal calvarium not seen on the previous head CT study, concerning for metastatic foci for which a whole-body bone scan or PET scan would be helpful in further assessment. Covering provider paged with these findings at 7:50 PM on 11/18/2021.
--- NOTE | ~2021-11-18 | CT_ITS ---
EXAMINATION: CT ABDOMEN AND PELVIS WITHOUT CONTRAST CLINICAL INFORMATION: Left flank pain and weakness. COMPARISON: Prior chest CT examinations dated 01/02/2020 and 09/19/2018. TECHNIQUE: Multidetector volumetric imaging was performed from the superior aspect of the liver through the pubic symphysis. Sagittal and coronal reformatted images were obtained on the technologist's workstation. This CT examination was performed using dose optimization techniques as appropriate, variously including the following: *Automated exposure control *Adjustment of mA and/or kV according to patient size (this includes techniques or standardized protocols for targeted exams where dose is matched to indication/reason for exam; i.e. extremities or head) *Use of iterative reconstruction technique DLP: 605 mGy-cm FINDINGS: LUNG BASES: There is mild bibasilar dependent hypoaeration. A very small left pleural effusion is situated at the medial left base. Within the posterior chest wall, posterior to the serratus anterior musculature (20:7), there is a 1.0 cm ovoid soft tissue density nodule. LIVER, GALLBLADDER, AND BILIARY TREE: The liver is normal in size, shape, and attenuation. No focal hepatic lesion or biliary ductal dilatation is present. The gallbladder is unremarkable with no evidence of radiopaque gallstones, gallbladder wall thickening, or obvious pericholecystic inflammatory changes. PANCREAS: Unremarkable. SPLEEN: Unremarkable. ADRENAL GLANDS: The right adrenal gland contains a central 3.1 x 2.7 cm indeterminate nodule, with precontrast Hounsfield value of 24.1 units (2:22). The left adrenal gland contains a 4.9 x 2.7 cm nodule, with precontrast Hounsfield value of 19.7 units (2123). The left adrenal gland contains a second 2.6 x 2.2 cm nodule with precontrast density value of 5.6 units (20:27). This latter nodule is stable from prior CT examinations, which in concert with its low Hounsfield value suggests a benign, lipid rich adenoma. The further 2, larger bilateral adrenal nodules are new and indeterminate. KIDNEYS AND URETERS: The kidneys are normal in size, shape, and attenuation. At the upper pole of the right kidney, a 6 x 1 mm linear, nonobstructing calculus is seen. At the upper pole of the left kidney (20:29), a 4 mm nonobstructing calculus is seen. At the interpolar aspect of the left kidney (20:31), a 4 mm nonobstructing calculus is seen. There are further bilateral renal vascular calcifications. No perinephric stranding. BLADDER: Unremarkable. GASTROINTESTINAL TRACT: There is a large hiatus hernia. Gastroesophageal wall thickening is questioned. There is a large colonic stool burden, with an appearance suggesting possible fecal impaction. There is gaseous distention of the cecum, which shows a maximal caliber of approximately 7.8 cm (24:13). No ileus is seen. There is no free intraperitoneal air or abscess. No focal bowel wall thickening is seen. The vermiform appendix is not identified with certainty; however, there is no finding to suggest appendicitis. ABDOMINAL WALL: No significant hernia is appreciated. LYMPH NODES: Normal. VASCULAR: There is moderate aortoiliac atherosclerotic calcification. No abdominal aortic aneurysm is seen. PELVIC VISCERA: Surgically absent. No pelvic mass, free fluid or lymphadenopathy is seen. OSSEOUS STRUCTURES: There is multi-level marked lower thoracic and lumbar degenerative disc disease and spondylosis. T10 and L2 upper endplate Schmorl's nodes are seen. There is a moderate T12 anterior wedge compression fracture. There are indeterminate sclerotic lesions of the right posterolateral L1 vertebral body and pedicle (20:24), as well as of the medial left ilium (20:53). CT/CT abdomen pelvis wo con IMPRESSION: 1. Findings are consistent with constipation and rectal fecal impaction. There is a secondary significant gaseous distention of the cecum. No small bowel dilatation is seen, suggesting a competent ileocecal valve. There is no free intraperitoneal air. 2. There is a large hiatus hernia. Gastroesophageal wall thickening questioned, which can be more fully evaluated with an upper GI series, if clinically indicated. 3. There are nonobstructing bilateral calculi, as detailed. 4. There are bilateral adrenal nodules noted. One on the left measuring 2.6 cm a maximal diameter has been seen on prior CT examinations of the chest dated 01/02/2020 and 09/19/2018, and is consistent with a benign, lipid rich adenoma. The other 2, larger bilateral adrenal nodules are indeterminate and could be more fully evaluated with CT (renal mass protocol), if clinically indicated. 5. No abdominopelvic free fluid or lymphadenopathy is seen. 6. There are multi-level degenerative changes of the thoracolumbar spine. There are indeterminate sclerotic lesions of the right posterolateral L1 vertebral body and left iliac, which can be more fully evaluated with a nuclear bone scan, if clinically indicated. 7. Within the posterolateral left chest wall, there is an indeterminate 1.0 cm soft tissue density nodule. This appears to be a new finding from the most recent CT examination dated 01/02/2020. This could be further evaluated with ultrasound or MRI, if clinically indicated. Fleischner guidelines were followed.
--- NOTE | 2021-11-18 17:56 | ECG_ITS ---
Test Reason : WEAKNESS Blood Pressure : / mmHG Vent. Rate : 100 BPM Atrial Rate : 100 BPM P-R Int : 132 ms QRS Dur : 074 ms QT Int : 362 ms P-R-T Axes : 054 076 016 degrees QTc Int : 466 ms Normal sinus rhythm ST & T wave abnormality, consider inferior ischemia Abnormal ECG When compared with ECG of 25-JUN-2020 23:40, T wave inversion now evident in Inferior leads Nonspecific T wave abnormality now evident in Lateral leads Referred By: Neelima Saleh Electronically Signed By:HERI PACK
--- NOTE | 2021-11-18 17:58 | ED.WEAKNESS ---
HPI - Weakness General Chief complaint: General Medical Stated complaint: weakness Time Seen by Provider: 11/18/21 17:55 Source: patient Mode of arrival: EMS Limitations: no limitations History of Present Illness HPI Narrative: 76 yo female with hx of CVA on aspirin, brain aneurysms on ASA, HTN, COPD - chronic smoker reports R sided weakness x 3 weeks, then for the past week reports n/v weakness, dyspnea, cough, L sided low back pain and overall not feeling well. She finally came in today due to low back pain and she cannot move well. Patient very adamant we turn the TV on for her so she can watch the [employer] game. She was found to be 83% on RA by EMS not normally on home O2 MD Complaint: generalized weakness Onset (ago): week(s) (3) Duration: progressively worsening Location: generalized, RUE and RLE Migration: none Severity: severe Quality: aching Relieving factors: none Exacerbating factors: movement Associated symptoms: fever/chills, headaches, loss of appetite, nausea/vomiting and myalgias Related Data Home Medications Medication Instructions Recorded Confirmed gabapentin 100 mg capsule 100 mg PO QID 03/14/20 11/18/21 ropinirole 2 mg tablet 2 mg PO BEDTIME 03/14/20 11/18/21 metoprolol tartrate 50 mg tablet 1 tab PO QPM 11/18/21 11/18/21 pravastatin 40 mg tablet 1 tab PO DAILY 11/18/21 11/18/21 Previous Rx's Medication Instructions Recorded tiotropium bromide 18 mcg capsule 1 cap inhalation DAILY #30 caps 02/25/20 with inhalation device (Spiriva with HandiHaler) aspirin 81 mg tablet,delayed 81 mg PO DAILY #30 tabs 03/16/20 release nicotine 14 mg/24 hr daily 14 mg transdermal DAILY #28 ea 06/27/20 transdermal patch tramadol 50 mg tablet 50 mg PO Q8H PRN pain #14 tabs 10/26/21 diazepam 2 mg tablet (Valium) 2 mg PO BEDTIME PRN muscle spasm 11/14/21 #5 tabs hydrocodone 2.5 mg-acetaminophen 1 tab PO Q4-6H PRN pain #10 tabs 11/14/21 325 mg tablet ondansetron 4 mg disintegrating 4 mg PO Q6H PRN nausea and 11/14/21 tablet vomiting #10 tabs Allergies Allergy/AdvReac Type Severity Reaction Status Date / Time fentanyl Allergy Severe Anaphylaxis Verified 10/26/21 11:13 ibuprofen [From MOTRIN] Allergy Mild GI UPSET Verified 10/26/21 11:13 morphine Allergy Nausea and Verified 11/14/21 02:15 Vomiting Review of Systems Review of Systems: Constitutional : No Fever, pos Chills, pos Fatigue, pos Malaise ENT/Mouth : No sore throat, No Rhinorrhea Eyes: No Eye Pain, No Swelling, No Redness Cardiovascular : No Chest Pain, No SOB, No Dyspnea on Exertion, No Orthopnea, No Edema, No Palpitations Respiratory : pos Cough, No Sputum, No Wheezing Gastrointestinal : pos Nausea, pos Vomiting, No Diarrhea, No Constipation, No abdominal Pain, No Hematochezia, No Melena Genitourinary : No Dysuria, No Urinary Frequency, No Hematuria, Musculoskeletal : No joint pain, No Myalgias, No Joint Swelling, pos back pain Skin : No Skin Lesions, No rash Neuro : pos Weakness, No Numbness, No Dizziness, No Headache Psych : No Anxiety/Panic, No Depression Heme/Lymph: No Bruising, No Bleeding,No Lymphadenopathy Endocrine : No Polyuria, No Polydipsia All other systems reviewed and are negative [facility] Past Medical History Attestation statement: The following information was validated with the patient. Medical History Arthritis Cerebrovascular accident COPD (chronic obstructive pulmonary disease) Embolic cerebral infarction Expressive aphasia HLD (hyperlipidemia) Hypertension Peripheral neuropathy Restless leg syndrome Transient cerebral ischemia Surgical History History of partial hysterectomy Social History Social History Household Members: Spouse and Children Household Members Other:: Spouse and son Housing: House Do you presently have visiting nurse or other home services: No Alcohol intake: never Patient Tobacco Use Status: Current everyday Tobacco user Cigarette Packs Per Day: 0.5 Cigarettes Per Day: 10.0 Years Smoked: 60 Use of substances other than those prescribed or required for medical reasons: No Advance Directives: No Advance Directives Information Provided: Yes service: No Physical Exam Vital Signs: Vital Signs: Last Vital Signs Temp 97.9 F 11/18/21 18:22 Pulse 105 H 11/18/21 23:39 Resp 24 H 11/18/21 23:39 BP 115/61 11/18/21 23:39 Pulse Ox 92 11/18/21 23:39 O2 Del Method 11/18/21 23:39 O2 Flow Rate 4 11/18/21 23:39 Oxygen Flow Rate 4 11/18/21 18:22 BMI result Body Mass Index 27.3 Appearance: Alert. Oriented X3. Mild acute distress. Eyes: Pupils equal, round and reactive to light. ENT: Pharynx normal. Neck: Normal inspection. Neck supple. CVS: tachycardic heart rate and rhythm. Pulses normal. Respiratory: No respiratory distress. Breath sounds very diminished bilaterally coarse with wheezes Abdomen: Soft and nontender. Rectal: impacted with large amount of brown stool Back: left lower lumbar ttp along the back itself reproduces pain Skin: Skin warm and dry. pale skin color. Normal skin turgor. Extremities: No lower extremity edema. No calf ttp Neuro: Oriented X 3. R UE and RLE 4+/5 weakness. No sensory deficit. Course Course Course Narrative: 755pm - call from Radiology mixed low high density hemorrhagic mets or hematoma L parietal skull 1 year ago ? met hard to say needs MRI given brain lesions will attempt transfer - [facility] is closed to acute transfers will call [facility] given brain mets - patient aware accepted to [facility] - discussed with Dr. Filippo Mtz in ED XR/XR chest 1V IMPRESSION: ? 1. A 2.2 cm nodule is seen in the mid to lower left lung. An ill-defined nodular opacity was noted at this location on the prior CT examination of 01/20/2020. Recommend repeat CT evaluation at this time. ? 2. There is bilateral linear scar/subsegmental atelectasis, as detailed. MR/MR head/brain wo/w con IMPRESSION: - There is intracranial metastatic disease. Enhancing hemorrhagic lesion within the left frontal lobe and enhancing lesions within the cerebellar hemispheres bilaterally with surrounding edema, most concerning for metastatic lesions. The lesion seen on the previous CT study corresponds to a 2 cm hemorrhagic lesion within the anterior left parasagittal frontal lobe and is the largest lesion identified. The largest lesion within the posterior fossa is located within the lateral left cerebellum, measuring 1 cm in size and there are a few smaller enhancing lesions within the right cerebellum. No midline shift nor other significant mass effect. ? - Punctate foci of restricted diffusion within the high right paracentral lobule, the left caudate, the left occipital lobe likely reflect small acute infarcts. ? - There is heterogeneously enhancing bone marrow replacement throughout the bony calvarium and the partially imaged cervical spine that is most concerning for osseous metastatic disease. The largest calvarial lesion within the right parietal bone measures up to 2 cm in size and is associated with adjacent dural enhancement. ? - There is abnormal thickening of the infundibular stalk which could be secondary to metastatic disease, lymphocytic hypophysitis, or other infundibular pathology. ? - A 6 mm enhancing extra-axial nodule along the anterior right frontal convexity on image 104 of series 9 may reflect a meningioma or a metastatic lesion. ? - There is a partially imaged 2 cm mass within the right parotid gland at the junction of the superficial and deep right parotid lobes that can be further assessed with PET. ? 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 IMPRESSION: CT abdomen ? 1. Findings are consistent with constipation and rectal fecal impaction. There is a secondary significant gaseous distention of the cecum. No small bowel dilatation is seen, suggesting a competent ileocecal valve. There is no free intraperitoneal air. ? 2. There is a large hiatus hernia. Gastroesophageal wall thickening questioned, which can be more fully evaluated with an upper GI series, if clinically indicated. ? 3. There are nonobstructing bilateral calculi, as detailed. ? 4. There are bilateral adrenal nodules noted. One on the left measuring 2.6 cm a maximal diameter has been seen on prior CT examinations of the chest dated 01/02/2020 and 09/19/2018, and is consistent with a benign, lipid rich adenoma. The other 2, larger bilateral adrenal nodules are indeterminate and could be more fully evaluated with CT (renal mass protocol), if clinically indicated. ? 5. No abdominopelvic free fluid or lymphadenopathy is seen. ? 6. There are multi-level degenerative changes of the thoracolumbar spine. There are indeterminate sclerotic lesions of the right posterolateral L1 vertebral body and left iliac, which can be more fully evaluated with a nuclear bone scan, if clinically indicated. ? 7. Within the posterolateral left chest wall, there is an indeterminate 1.0 cm soft tissue density nodule. This appears to be a new finding from the most recent CT examination dated 01/02/2020. This could be further evaluated with ultrasound or MRI, if clinically indicated. ? Fleischner guidelines were followed. MDM - Weakness MDM Narrative Medical decision making narrative: 76 yo female with hx of CVA on aspirin, brain aneurysms on ASA, HTN, COPD - chronic smoker here wtih c/o n/v dyspnea cough malaise n/v L flank pain and R sided weakness (3 weeks) she was found to be hypoxic by EMS at this time will need labs, cultures, CT head given 3 weeks of R sided weakness, CT scan of L flank, UA, CXR for pneumonia, IV steroids and neb treatment, c/o cough and new O2 requirement will add on ceftriaxone for COPD. Possible pneumonia, stroke, UTI, renal colic, cancer, dispo per results and findings. Lab Data Result diagrams: 11/18/21 19:14 11/18/21 19:14 Labs: Lab Results 11/18/21 11/18/21 11/18/21 Range/Units 19:14 19:14 19:14 WBC 13.3 H (4.8-10.8) X10*3/uL RBC 3.27 L D (4.20-5.50) X10*6/uL Hgb 9.3 L D (12.0-16.0) g/dl Hct 28.9 L D (37.0-47.0) % MCV 88.4 (80.0-98.0) fL MCH 28.4 (27.0-33.0) pg MCHC 32.2 (31.0-35.0) g/dl RDW 16.4 H (11.0-16.0) % Plt Count 289 D (160-400) X10*3/uL MPV 10.0 (9.4-12.3) fL Immature Gran % (Auto) 1.2 H (0.0-0.4) % Neut % (Auto) 74.8 H (45-73) % Lymph % (Auto) 16.3 L (20-40) % Porter % (Auto) 6.8 (2-11) % Eos % (Auto) 0.4 (0-4) % Baso % (Auto) 0.5 (0-2) % Lymph # (Auto) 2.2 (1.2-4.9) X10*3/uL Porter # (Auto) 0.9 (0.1-1.2) X10*3/uL Eos # (Auto) 0.1 (0.0-0.4) X10*3/uL Baso # (Auto) 0.1 (0.0-0.2) X10*3/uL Abs Immat Gran (auto) 0.16 H (0.00-0.03) X10*3/uL Absolute Neuts (auto) 9.9 H (2.0-8.3) x10*3/uL Absolute Nucleated RBC 0.100 H (0.0-0.012) X10*3/uL Nucleated RBC % (auto) 0.8 H (0.0-0.2) /100WBC Sodium 141 (135-145) mmol/L Potassium 3.8 (3.3-5.1) mmol/L Chloride 100 (96-108) mmol/L Carbon Dioxide 25 (22-29) mmol/L Anion Gap 20 (12-20) BUN 22 H (9-16) mg/dL Creatinine 0.83 (0.5-1.4) mg/dL Estim Creat Clear Calc 51.6 Estimated GFR > 60 Random Glucose 150 H (60-115) mg/dL Lactic Acid 2.3 H* (0.5-2.0) mmol/L Lactic Acid F/U @ 2Hr (0.5-2.0) mmol/L Calcium 9.7 D (8.4-10.2) mg/dL Magnesium 2.1 (1.6-2.6) mg/dL Total Bilirubin 0.3 (0.0-1.0) mg/dL Direct Bilirubin 0.2 (0.0-0.5) mg/dL AST 39 H D (5-31) U/L ALT 38 H (0-31) U/L Alkaline Phosphatase 191 H D (39-117) U/L Troponin I High Sens (<3.5-17.0) ng/L B-Natriuretic Peptide (<100) pg/mL Total Protein 6.9 (6.5-8.0) g/dL Albumin 3.5 (3.5-5.0) g/dL Lipase 17 (8-78) U/L Stool Occult Blood (NEGATIVE) COVID-19 ([facility]) (Negative) COVID-19 [facility] Blood Type Antibody Screen 11/18/21 11/18/21 11/18/21 Range/Units 19:14 19:14 19:14 WBC (4.8-10.8) X10*3/uL RBC (4.20-5.50) X10*6/uL Hgb (12.0-16.0) g/dl Hct (37.0-47.0) % MCV (80.0-98.0) fL MCH (27.0-33.0) pg MCHC (31.0-35.0) g/dl RDW (11.0-16.0) % Plt Count (160-400) X10*3/uL MPV (9.4-12.3) fL Immature Gran % (Auto) (0.0-0.4) % Neut % (Auto) (45-73) % Lymph % (Auto) (20-40) % Porter % (Auto) (2-11) % Eos % (Auto) (0-4) % Baso % (Auto) (0-2) % Lymph # (Auto) (1.2-4.9) X10*3/uL Porter # (Auto) (0.1-1.2) X10*3/uL Eos # (Auto) (0.0-0.4) X10*3/uL Baso # (Auto) (0.0-0.2) X10*3/uL Abs Immat Gran (auto) (0.00-0.03) X10*3/uL Absolute Neuts (auto) (2.0-8.3) x10*3/uL Absolute Nucleated RBC (0.0-0.012) X10*3/uL Nucleated RBC % (auto) (0.0-0.2) /100WBC Sodium (135-145) mmol/L Potassium (3.3-5.1) mmol/L Chloride (96-108) mmol/L Carbon Dioxide (22-29) mmol/L Anion Gap (12-20) BUN (9-16) mg/dL Creatinine (0.5-1.4) mg/dL Estim Creat Clear Calc Estimated GFR Random Glucose (60-115) mg/dL Lactic Acid (0.5-2.0) mmol/L Lactic Acid F/U @ 2Hr (0.5-2.0) mmol/L Calcium (8.4-10.2) mg/dL Magnesium (1.6-2.6) mg/dL Total Bilirubin (0.0-1.0) mg/dL Direct Bilirubin (0.0-0.5) mg/dL AST (5-31) U/L ALT (0-31) U/L Alkaline Phosphatase (39-117) U/L Troponin I High Sens 27.1 H (<3.5-17.0) ng/L B-Natriuretic Peptide 119 H (<100) pg/mL Total Protein (6.5-8.0) g/dL Albumin (3.5-5.0) g/dL Lipase (8-78) U/L Stool Occult Blood (NEGATIVE) COVID-19 ([facility]) Negative (Negative) COVID-19 Clin Com See Note Blood Type Antibody Screen 11/18/21 11/18/21 11/18/21 Range/Units 22:21 22:21 22:21 WBC (4.8-10.8) X10*3/uL RBC (4.20-5.50) X10*6/uL Hgb (12.0-16.0) g/dl Hct (37.0-47.0) % MCV (80.0-98.0) fL MCH (27.0-33.0) pg MCHC (31.0-35.0) g/dl RDW (11.0-16.0) % Plt Count (160-400) X10*3/uL MPV (9.4-12.3) fL Immature Gran % (Auto) (0.0-0.4) % Neut % (Auto) (45-73) % Lymph % (Auto) (20-40) % Porter % (Auto) (2-11) % Eos % (Auto) (0-4) % Baso % (Auto) (0-2) % Lymph # (Auto) (1.2-4.9) X10*3/uL Porter # (Auto) (0.1-1.2) X10*3/uL Eos # (Auto) (0.0-0.4) X10*3/uL Baso # (Auto) (0.0-0.2) X10*3/uL Abs Immat Gran (auto) (0.00-0.03) X10*3/uL Absolute Neuts (auto) (2.0-8.3) x10*3/uL Absolute Nucleated RBC (0.0-0.012) X10*3/uL Nucleated RBC % (auto) (0.0-0.2) /100WBC Sodium (135-145) mmol/L Potassium (3.3-5.1) mmol/L Chloride (96-108) mmol/L Carbon Dioxide (22-29) mmol/L Anion Gap (12-20) BUN (9-16) mg/dL Creatinine (0.5-1.4) mg/dL Estim Creat Clear Calc Estimated GFR Random Glucose (60-115) mg/dL Lactic Acid (0.5-2.0) mmol/L Lactic Acid F/U @ 2Hr 1.8 (0.5-2.0) mmol/L Calcium (8.4-10.2) mg/dL Magnesium (1.6-2.6) mg/dL Total Bilirubin (0.0-1.0) mg/dL Direct Bilirubin (0.0-0.5) mg/dL AST (5-31) U/L ALT (0-31) U/L Alkaline Phosphatase (39-117) U/L Troponin I High Sens 36.3 H (<3.5-17.0) ng/L B-Natriuretic Peptide (<100) pg/mL Total Protein (6.5-8.0) g/dL Albumin (3.5-5.0) g/dL Lipase (8-78) U/L Stool Occult Blood (NEGATIVE) COVID-19 ([facility]) (Negative) COVID-19 Clin Com Blood Type O Positive Antibody Screen NEGATIVE 11/18/21 Range/Units 22:21 WBC (4.8-10.8) X10*3/uL RBC (4.20-5.50) X10*6/uL Hgb (12.0-16.0) g/dl Hct (37.0-47.0) % MCV (80.0-98.0) fL MCH (27.0-33.0) pg MCHC (31.0-35.0) g/dl RDW (11.0-16.0) % Plt Count (160-400) X10*3/uL MPV (9.4-12.3) fL Immature Gran % (Auto) (0.0-0.4) % Neut % (Auto) (45-73) % Lymph % (Auto) (20-40) % Porter % (Auto) (2-11) % Eos % (Auto) (0-4) % Baso % (Auto) (0-2) % Lymph # (Auto) (1.2-4.9) X10*3/uL Porter # (Auto) (0.1-1.2) X10*3/uL Eos # (Auto) (0.0-0.4) X10*3/uL Baso # (Auto) (0.0-0.2) X10*3/uL Abs Immat Gran (auto) (0.00-0.03) X10*3/uL Absolute Neuts (auto) (2.0-8.3) x10*3/uL Absolute Nucleated RBC (0.0-0.012) X10*3/uL Nucleated RBC % (auto) (0.0-0.2) /100WBC Sodium (135-145) mmol/L Potassium (3.3-5.1) mmol/L Chloride (96-108) mmol/L Carbon Dioxide (22-29) mmol/L Anion Gap (12-20) BUN (9-16) mg/dL Creatinine (0.5-1.4) mg/dL Estim Creat Clear Calc Estimated GFR Random Glucose (60-115) mg/dL Lactic Acid (0.5-2.0) mmol/L Lactic Acid F/U @ 2Hr (0.5-2.0) mmol/L Calcium (8.4-10.2) mg/dL Magnesium (1.6-2.6) mg/dL Total Bilirubin (0.0-1.0) mg/dL Direct Bilirubin (0.0-0.5) mg/dL AST (5-31) U/L ALT (0-31) U/L Alkaline Phosphatase (39-117) U/L Troponin I High Sens (<3.5-17.0) ng/L B-Natriuretic Peptide (<100) pg/mL Total Protein (6.5-8.0) g/dL Albumin (3.5-5.0) g/dL Lipase (8-78) U/L Stool Occult Blood NEGATIVE (NEGATIVE) COVID-19 ([facility]) (Negative) COVID-19 Clin Com Blood Type Antibody Screen ECG Data Attestation: I personally reviewed and interpreted this ECG as follows: ECG interpretation date: 11/18/21 ECG interpretation time: 19:00 Interpretation: Rate: 100 Rhythm: sinus tachycardia [place]: normal Normal P waves. Normal GISEL. Normal QRS complex. ST T wave : no ERIK, nonspecific artifact noted qTC: normal prior studies: no sig change from priors The study has been interpreted contemporaneously by me. . Procedures Rectal Disimpaction Time out performed rectal disimpaction: Yes Indication: fecal impaction Procedural Sedation: No Sedation/Analgesia: none Technique: manual disimpaction with gloved finger Result: significant stool output Patient Tolerated Procedure: well and no complications Complications: none Critical Care Time Critical Care Time Critical Care Time: Yes Total Critical Care Time: 45 Attestation: repeat neb, review of records, discussion with patient about image findings, medical consult, transfer to tertiary center I attest to this time spent taking care of the patient Discharge Plan Discharge Clinical Impression: Fecal impaction, Acidosis, lactic, Elevated LFTs, Acute exacerbation of chronic obstructive pulmonary disease, Lung nodule, Brain metastases, Acute right-sided muscle weakness Anemia Qualifiers: Anemia type: unspecified type Qualified Code(s): D64.9 - Anemia, unspecified Closed wedge compression fracture of T12 vertebra Qualifiers: Encounter type: initial encounter Qualified Code(s): S22.080A - Wedge compression fracture of T11-T12 vertebra, initial encounter for closed fracture Bleeding in brain Qualifiers: Intracerebral hemorrhage etiology: nontraumatic Cerebral hemorrhage location: unspecified cerebral location Laterality: unspecified laterality Qualified Code(s): I61.9 - Nontraumatic intracerebral hemorrhage, unspecified Patient Disposition: er [facility] Transfer Details: [facility] Prescriptions: No [facility] tiotropium bromide [Spiriva with HandiHaler] 18 mcg capsule, w/inhalation device 1 cap inhalation DAILY Qty: 30 3RF ropinirole 2 mg tablet 2 mg PO BEDTIME gabapentin 100 mg capsule 100 mg PO QID aspirin 81 mg Tablet,Delayed Release (Dr/Ec) 81 mg PO DAILY Qty: 30 0RF nicotine 14 mg/24 hr Patch 24 Hour 14 mg transdermal DAILY Qty: 28 0RF tramadol 50 mg tablet 50 mg PO Q8H PRN (Reason: pain) Qty: 14 0RF ondansetron 4 mg tablet,disintegrating 4 mg PO Q6H PRN (Reason: nausea and vomiting) Qty: 10 0RF diazepam [Valium] 2 mg tablet 2 mg PO BEDTIME PRN (Reason: muscle spasm) Qty: 5 0RF hydrocodone-acetaminophen 2.5-325 mg tablet 1 tab PO Q4-6H PRN (Reason: pain) Qty: 10 0RF Rx Instructions: Partial Fill upon patient request. metoprolol tartrate 50 mg tablet 1 tab PO QPM pravastatin 40 mg tablet 1 tab PO DAILY Interventions: Acute Care Transfer Worksheet (ED) Last Done: 11/19/21 00:15 Discharge Date/Time: 11/18/21 23:50
[2021-11-18] MEDS: Albuterol/Iprat 2.5/0.5MG 3 ML AMPUL.NEB INHALE (18:00)
[2021-11-18] MEDS: methylPREDNISolone Sod Succ 125 MG/2 ML VIAL IVPUSH (19:23)
[2021-11-18] MEDS: 0.9 % Sodium Chloride 1,000 ML 999 ML IVCONT (19:25)
--- NOTE | 2021-11-18 19:26 | PC.NURSE ---
Pt reported no nausea and refused zofran. Zofran not administered.
[2021-11-18 19:27] LABS: MANUAL DIFF FLAG NO
[2021-11-18 19:28] LABS: Basophils Absolute Auto 0.1 X10*3/uL (0.0-0.2); Basophils Percent Auto 0.5 % (0-2); Eosinophils Absolute Auto 0.1 X10*3/uL (0.0-0.4); Eosinophils Percent Auto 0.4 % (0-4); Hematocrit 28.9 % (37.0-47.0); Hemoglobin 9.3 g/dl (12.0-16.0); Imm Gran Abs Auto 0.16 X10*3/uL (0.00-0.03); Imm Gran Pct Auto 1.2 % (0.0-0.4); Lymphocytes Absolute Auto 2.2 X10*3/uL (1.2-4.9); Lymphocytes Percent Auto 16.3 % (20-40); Mean Corpuscular HGB Conc 32.2 g/dl (31.0-35.0); Mean Corpuscular Hemoglobin 28.4 pg (27.0-33.0); Mean Corpuscular Volume 88.4 fL (80.0-98.0); Monocytes Absolute Auto 0.9 X10*3/uL (0.1-1.2); Monocytes Percent Auto 6.8 % (2-11); NRBC Pct Auto 0.8 /100WBC (0.0-0.2); Neutrophils Absolute Auto 9.9 x10*3/uL (2.0-8.3); Neutrophils Percent Auto 74.8 % (45-73); Platelet Count 289 X10*3/uL (160-400); Red Blood Count 3.27 X10*6/uL (4.20-5.50); Red Cell Distribution Width 16.4 % (11.0-16.0); White Blood Count 13.3 X10*3/uL (4.8-10.8)
--- NOTE | 2021-11-18 19:37 | PHA.MEDREC ---
Pharmacy Consult ? Medication Reconciliation Pharmacy has completed the medication reconciliation.
[2021-11-18 19:42] LABS: COVID-19 Test Negative (Negative)
[2021-11-18 19:48] LABS: Alanine Aminotransferase 38 U/L (0-31); Albumin Level 3.5 g/dL (3.5-5.0); Alkaline Phosphatase 191 U/L (39-117); Anion Gap 20 (12-20); Aspartate Amino Transferase 39 U/L (5-31); Bilirubin Direct 0.2 mg/dL (0.0-0.5); Bilirubin Total 0.3 mg/dL (0.0-1.0); Blood Urea Nitrogen 22 mg/dL (9-16); Calcium 9.7 mg/dL (8.4-10.2); Carbon Dioxide 25 mmol/L (22-29); Chloride 100 mmol/L (96-108); Creatinine Clr Calc Pharmacy 51.6; Estimated Glomerular Filt Rate > 60; Glucose Random 150 mg/dL (60-115); Lipase 17 U/L (8-78); Magnesium 2.1 mg/dL (1.6-2.6); Potassium 3.8 mmol/L (3.3-5.1); Sodium 141 mmol/L (135-145); Total Protein 6.9 g/dL (6.5-8.0)
[2021-11-18 19:49] LABS: Lactic Acid 2.3 mmol/L (0.5-2.0)
[2021-11-18 19:54] LABS: B Type Natriuretic Peptide 119 pg/mL (<100)
[2021-11-18 19:55] LABS: Troponin-I High Sensitivity 27.1 ng/L (<3.5-17.0)
[2021-11-18] MEDS: HYDROcodone Bit/Acetam 5/325 TABLET 1 TAB PO (20:31)
[2021-11-18] MEDS: LORazepam 1 MG TABLET PO (20:32)
[2021-11-18 21:22] LABS: Reflex Lactate? Lactic Acid Added
[2021-11-18] MEDS: cefTRIAXone sodium 1 GM in 0.9 % Sodium Chloride 50 ML IV (22:23)
[2021-11-18 22:30] LABS: OBS Int Ctl Valid YES; OBS1 NEGATIVE (NEGATIVE)
[2021-11-18 22:38] LABS: ~Lactic Acid-LAB USE ONLY 1.8 mmol/L (0.5-2.0)
[2021-11-18 22:49] LABS: Troponin-I High Sensitivity 36.3 ng/L (<3.5-17.0)
--- NOTE | 2021-11-18 23:40 | PC.NURSE ---
This US/Pct called [facility]'s Transfer line at 2218 Per ,they were not accepting any medical transfers at this time. At 2230 this US/Pct called [facility] Transfer line, awaiting a call back. At 2300 accepted pt to [facility] to ER. [facility] called at 2310 spoke to Chaim he will try to pass transfer. At 231 Chaim from [facility] called and stated he is still trying to pass call. At 2326 Chaim from [facility] called and stated he will send a truck ALS stat to transfer patient. EMS arrived at 2342 to transfer patient.
--- NOTE | 2021-11-18 23:41 | PC.NURSE ---
urine output 200cc by perwick.
--- NOTE | 2021-11-19 00:14 | PC.NURSE ---
Report called and given to Gerhard BRANDON at [facility]. EMS left wit pt around [id number]
== END 2021-11-18 23:50 | disposition short-term general hospital (02) ==
PROVIDERS: Emergency Provider Emergency Medicine; PCP Internal Medicine
DX: D64.9 Anemia, unspecified (principal); I61.9 Nontraumatic intracerebral hemorrhage, unspecified; R50.9 Fever, unspecified; C71.9 Malignant neoplasm of brain, unspecified; S22.080A Wedge compression fracture of T11-T12 vertebra, initial encounter for closed fracture; J44.1 Chronic obstructive pulmonary disease with (acute) exacerbation; M79.10 Myalgia, unspecified site; R06.02 Shortness of breath; I10 Essential (primary) hypertension; F17.210 Nicotine dependence, cigarettes, uncomplicated; Z71.6 Tobacco abuse counseling; Z79.899 Other long term (current) drug therapy; Z20.822 Contact with and (suspected) exposure to COVID-19; Z79.82 Long term (current) use of aspirin
CPT/HCPCS: 36415; 70450; 70553; 71045; 74176; 80048; 80076; 82272; 83605; 83690; 83735; 83880; 84484; 85025; 86850; 86900; 86901; 87040; 87635; 93005; 94640; 96361; 96365; 96375; 99285; A9585; J0696; J2930

== ENCOUNTER 2021-11-30 07:22 | Outpatient (REF) | payer MEDICARE, SELFPAY | END 2021-11-30 07:23 | disposition home or self-care (01) | LOC: HO.HOSX 07:22 | PROVIDERS: Visit Provider Physician Assistant | DX: Z13.89 Encounter for screening for other disorder (principal) ==